=== PATIENT | male | born 1965 | race Caucasian/White ===

== ENCOUNTER 2023-06-27 18:42 | Emergency (ER) | payer SELFPAY ==
[2023-06-27 18:50] VITALS: BP 107/77; PULSE 79; RESP 18; TEMP 36.9; O2SAT 98; BMI 23.7
[2023-06-27 19:09] LABS: UTC Influenza A Antigen Negative (Negative)
[2023-06-27 19:10] LABS: UTC Influenza B Antigen Negative (Negative)
--- NOTE | 2023-06-27 19:11 | EXP.UTC ---
Discharge Plan Referrals Follow up/Referrals: Provider,Referral, MD [Primary Care Provider] - See instructions Activity Restrictions/Add. Instructions Additional Instructions/Restrictions: No sign of a bacterial infection. Likely viral. Viruses can take 7-14 days to run their course. Nasal saline and bulb syringe or nose Marla to remove nasal drainage to help with nasal congestion. Hard to eat, drink, sleep with nasal congestion so important to keep this cleaned out. Monitor temp. Tylenol or Motrin as needed for pain or fever Encourage fluids, water, Gatorade, Powerade, Pedialyte if infant/toddler/child Warm salt water gargles Warm fluids Sore throat lozenges Sleep elevated Humidifier/vaporizer Follow-up immediately for new or worsening symptoms or no noticeable improvement over the next 48-72 hours. Clinical Impressions Clinical Impression: Upper respiratory infection Qualifiers: URI type: unspecified viral URI Qualified Code(s): J06.9 - Acute upper respiratory infection, unspecified Instructions Patient Instructions: DI for Viral Upper Respiratory Infection -- Adult Discharge ED [facility]Karthikeyan [facility] HPI General Stated complaint: nausea,fever, body aches Mode of Arrival: Ambulatory Source of Information: Patient Limitations: No Limitations Time Seen by Provider: 06/27/23 19:11 Description of Symptoms (Recalled from Triage Doc. by RN): body aches, nausea, cough, and fever HEENT Symptoms (Recalled from RN notes): Yes Resp Symptoms (Recalled from RN notes): No Skin Symptoms (Recalled from RN notes): No MS Symptoms (Recalled from RN notes): No Functional Status (Recalled from RN notes): n/a History of Present Illness Provider Complaint: 57 yr old male presents for body aches, nausea, cough, and fever since last pm Related Data Allergies Allergy/AdvReac Type Severity Reaction Status Date / Time codeine Allergy Verified 06/27/23 19:05 Worker's Comp Is this a Worker's Comp case?: No [facility] Disclaimer: The information contained in this section may have been updated after the patient was seen, as this information can be updated by other users. 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) Smoking Status: Current every day smoker alcohol intake: never current occupational status: employed Travel in the last 8 weeks: None ROS Obtained: Yes All systems reviewed & no additional complaints except as documented Constitutional Constitutional: Reports system reviewed and no additional complaints, except as documented, Reports as per HPI, Reports body ache, Reports chills and Reports fever(s) Eyes Eyes: Reports system reviewed and no additional complaints, except as documented ENT Ears, Nose, Mouth, and Throat: Reports system reviewed and no additional complaints, except as documented, Reports as per HPI, Reports otalgia and Reports nasal discharge Cardiovascular Cardiovascular: Reports system reviewed and no additional complaints, except as documented Respiratory Respiratory: Reports system reviewed and no additional complaints, except as documented, Reports as per HPI and Reports cough Gastrointestinal Gastrointestingal: Reports system reviewed and no additional complaints, except as documented Musculoskeletal Musculoskeletal: Reports system reviewed and no additional complaints, except as documented Integumentary/Breasts Skin/Breast: Reports system reviewed and no additional complaints, except as documented Neurologic Neurologic: Reports system reviewed and no additional complaints, except as documented Endocrine Endocrine: Reports system reviewed and no additional complaints, except as documented Allergic/Immunologic Allergic/Immunologic: Reports system reviewed and no additional complaints, except as documented Physical Exam General General appearance: alert and in no apparent distress Head Head exam: atraumatic Eye Eye exam: Present normal appearance and PERRL ENT ENT exam: Present normal exam, normal oropharynx, mucous membranes moist and TM's normal bilaterally Respiratory Respiratory exam: Present normal lung sounds bilaterally Cardiovascular Cardiovascular exam: Present regular rate and normal rhythm Neurological Exam Neurological exam: Present alert and oriented X3 Medical Decision Making Medical Records Medical records reviewed: Yes I reviewed the patient's medical records. Cedrick Inquiry Pt receiving controlled substance: No Cedrick was queried for this patient: No Vital Signs: 06/27/23 18:50 Temperature 98.5 F Temperature Source Oral Pulse Rate [Right Radial] 79 Respiratory Rate 18 Blood Pressure [Right Arm] 107/77 L Blood Pressure Mean [Right Arm] 87 Blood Pressure Source [Right Arm] Automatic Cuff Blood Pressure Position [Right Arm] Sitting 02 Sat by Pulse Oximetry 98 Oxygen Delivery Method Room Air Lab Data Lab results reviewed: Yes I reviewed the patient's lab results. Lab Results 06/27/23 19:09: Influenza Type A Ag Negative, Influenza Type B Ag Negative
[2023-06-27 19:24] VITALS: BP 107/77; PULSE 79; RESP 18; TEMP 36.9; O2SAT 98
[2023-06-27 19:58] LABS: Adenovirus,PCR Not Detected (NotDetected); Coronavirus 19, PCR Not Detected (NotDetected); Coronavirus 229E Not Detected (NotDetected); Coronavirus NL63 Not Detected (NotDetected); Coronavirus OC43 Not Detected (NotDetected); Coronovirus HKU1,PCR Not Detected (NotDetected); Human Metapneumovirus Not Detected (NotDetected); Influenza A, PCR Not Detected (NotDetected); Influenza AH1, 2009 Not Detected (NotDetected); Influenza AH1, PCR Not Detected (NotDetected); Influenza AH3,PCR Not Detected (NotDetected); Influenza B, PCR Not Detected (NotDetected); Parainfluenza 1, PCR Not Detected (NotDetected); Parainfluenza 2, PCR Not Detected (NotDetected); Parainfluenza 3, PCR Not Detected (NotDetected); Parainfluenza 4, PCR Not Detected (NotDetected); Respiratory Syncytial Virus Not Detected (NotDetected); Rhinovirus/Enterovirus Not Detected (NotDetected)
== END 2023-06-27 19:24 | disposition home or self-care (01) ==
PROVIDERS: Emergency Provider Nurse Practitioner Family
DX: J06.9 Acute upper respiratory infection, unspecified; R05.9 Cough, unspecified; R11.0 Nausea; R50.9 Fever, unspecified; M79.18 Myalgia, other site; B34.9 Viral infection, unspecified; F17.210 Nicotine dependence, cigarettes, uncomplicated
CPT/HCPCS: 87581; 87632; 87635; 87798; 87804; 99203; 99212; G0463

== ENCOUNTER 2023-11-29 23:18 | Emergency (ER) | payer SELFPAY ==
[2023-11-29 23:21] VITALS: BP 114/78; PULSE 79; RESP 16; TEMP 36.4; O2SAT 98; BMI 23.0
--- NOTE | 2023-11-29 23:28 | ED_ITS ---
Discharge Plan Disposition Patient Disposition: Home, Self-Care Referrals Follow up/Referrals: Provider,Referral, MD [Primary Care Provider] - See instructions Activity Restrictions/Add. Instructions Additional Instructions/Restrictions: There is a 2 cm lesion on the right kidney. Most likely a cyst, but this will need to be followed up on a nonemergent basis with a dedicated renal CT scan or MRI through a PCP. You also have a small infrarenal abdominal aortic aneurysm. This will also require follow-up imaging for monitoring with PCP. Recommend establishing care with a primary care provider. Return to the ER with any new or worsening symptoms or concern for your health. Clinical Impressions Clinical Impression: Lesion of right [place] kidney, Infrarenal abdominal aortic aneurysm (AAA) without rupture, Abdominal cramping, Hernia, hiatal, Diverticulosis Instructions Patient Instructions: Aortic Aneurysm, DI for Hiatal Hernia, DI for Diverticulosis Discharge ED Provider: Jose Roberto Barber General Adult HPI General Chief complaint: Abdominal Pain Stated complaint: abd pain,cramps,food tastes bad,pasing food fast, Time Seen by Provider: 11/29/23 23:28 History of Present Illness HPI narrative: 58-year-old male without significant past medical history presents for evaluation multiple complaints. He reports over the last few weeks he has had decreased appetite and has been losing some weight. He reports intermittent crampy abdominal pain. He comes in tonight because he was at work and he had pain bad enough to double him over . His pain is now better but still mildly present. He reports the pain is largely periumbilical/epigastric. Denies any right upper quadrant pain. He reports no fevers or night sweats. Denies any recent illness. He reports that he is not significantly nauseous when he eats, he just feels like food taste funny and he does not want. He reports that he did lose his sense of taste with COVID when he was sick about a year ago, but this feels different. He reports that he smokes cigarettes but does not use any other recreational drugs or drink a significant mount of alcohol. He has never had a colonoscopy. Related Data Allergies Allergy/AdvReac Type Severity Reaction Status Date / Time codeine Allergy Verified 06/27/23 19:05 [facility] Disclaimer: The information contained in this section may have been updated after the patient was seen, as this information can be updated by other users. 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) Smoking Status: Current every day smoker alcohol intake: never current occupational status: employed Travel in the last 8 weeks: None ROS Obtained: Yes All systems reviewed & no additional complaints except as documented Physical Exam General General appearance: alert and in no apparent distress Head Head exam: atraumatic and normocephalic Eye Eye exam: Present normal appearance, PERRL and EOMI ENT ENT exam: Present normal oropharynx and normal external ear exam Neck Neck exam: Present normal inspection and full ROM Chest Chest inspection: Present normal inspection and symmetric chest wall rise; Absent tenderness Respiratory Respiratory exam: Present normal lung sounds bilaterally; Absent respiratory distress Cardiovascular Cardiovascular exam: Present regular rate and normal rhythm Abdominal Exam Abdominal exam: Present soft; Absent distention, tenderness or guarding Extremities Exam Extremities exam: Present normal inspection; Absent edema or joint swelling Back Exam Back exam: Present normal inspection; Absent tenderness Neurological Exam Neurological exam: Present alert and oriented X3; Absent motor sensory deficit Psychiatric Psychiatric exam: Present normal affect and normal mood Skin Skin exam: Present warm, dry and normal color Lymphatic Lymphatic Findings: no adenopathy Medical Decision Making Medical Records Medical records reviewed: Yes I reviewed the patient's medical records. Cedrick Inquiry Pt receiving controlled substance: No Cedrick was queried for this patient: No Vital Signs: 11/29/23 23:21 11/29/23 23:31 Temperature 97.5 F L 98.3 F Temperature Source Oral Oral Pulse Rate 76 Pulse Rate [Right] 79 Respiratory Rate 16 18 Blood Pressure 123/89 Blood Pressure [Right Arm] 114/78 Blood Pressure Mean [Right Arm] 90 02 Sat by Pulse Oximetry 98 97 Oxygen Delivery Method Room Air Lab Data Lab results reviewed: Yes I reviewed the patient's lab results. Lab Results 11/29/23 23:51: WBC 5.4, RBC 4.44 L, Hgb 14.1, Hct 42.5, MCV 95.7 H, MCH 31.7 H, MCHC 33.1, RDW 13.4, Plt Count 203, MPV 7.8, Neut % (Auto) 54.4, Lymph % (Auto) 36.1, [place] % (Auto) 6.1, Eos % (Auto) 2.0, Baso % (Auto) 1.4, Neut # (Auto) 3.0, Lymph # (Auto) 2.0, [place] # (Auto) 0.3, Eos # (Auto) 0.1, Baso # (Auto) 0.1, Sodium 138, Potassium 3.9, Chloride 102, Carbon Dioxide 29, Anion Gap 10.9, BUN 21 H, Creatinine 1.20, Estimated Creat Clear 72, Estimated GFR 62, Est GFR ( Amer) 75, Glucose 89, Calcium 9.6, Magnesium 2.2, Total Bilirubin 0.9, AST 31, ALT 23, Alkaline Phosphatase 48, Total Protein 6.9, Albumin 4.3, Globulin 2.6, Albumin/Globulin Ratio 1.7, Lipase 116 11/29/23 23:51 11/29/23 23:51 Orders (Tests/Meds): ED MEDICATIONS Generic Name Dose Route Start Last Admin Trade Name Freq PRN Reason Stop Dose Admin Sodium Chloride 10 ml 11/30/23 00:31 11/30/23 00:33 Sodium Chloride 0.9% 10ml Syr (Rad Only) IV 12/30/23 00:30 10 ml NEEDED PRN Administration Maintain IV Site Discontinued Medications Generic Name Dose Route Start Last Admin Trade Name Freq PRN Reason Stop Dose Admin Iopamidol 75 ml 11/30/23 00:31 11/30/23 00:33 Iopamidol-370 (76%);100ml Bottle IV 11/30/23 00:32 75 ml ONCE ONE Administration ORDERS Category Date Time Status CT abdomen pelvis w con Stat Cat Scan 11/29/23 23:35 Completed CXR --portable [XR chest portable] Stat Exams 11/29/23 23:36 Completed CBC w/Auto Diff [Complete Blood Count Auto Diff] Stat Lab 11/29/23 23:51 Completed CMP [Comprehensive Metabolic Panel] Stat Lab 11/29/23 23:51 Completed Lipase Stat Lab 11/29/23 23:51 Completed Magnesium Stat Lab 11/29/23 23:51 Completed Medical Decision Narrative: 58-year-old male without significant past medical history presents with a few weeks of decreased appetite, weight loss and intermittent crampy abdominal pain. History was obtained interactive discussion with patient family. On arrival, patient is [afebrile, hemodynamically stable, satting appropriately, alert, oriented x4, GCS 15], moving all extremities spontaneously. Full physical exam performed and significant for benign abdominal exam, no intraoral lesions, clear lungs bilaterally Differential includes but is not limited to malignancy, pancreatitis, cholecystitis, IBS, IBD, viral infection. Workup initiated including chest x-ray CT abdomen pelvis IV contrast CBC CMP lipase. On re-evaluation, patient [remains afebrile, HD stable.] Continues to be asymptomatic. Laboratory workup independently interpreted by me and significant for normal white count, normal renal function, no significant electrolyte derangement, normal LFTs. Imaging independently interpreted by me and significant for multiple nonemergent findings including diverticulosis, small hiatal hernia, small right renal lesion, 3 cm infrarenal aortic aneurysm. See radiology read for full review of final results. I had a interactive discussion with patient regarding his presentation and all of the nonemergent findings and follow-up recommendations. He was given a sheet for establishing care with a PCP to follow-up on these nonemergent findings and to further assess his symptoms. Patient was discharged in stable condition. Return precautions given. Procedures Risk/Benefits of Procedure(s) Were Explained: Yes Critical Care Critical Care Time Critical Care Time: No
[2023-11-29 23:31] VITALS: BP 123/89; PULSE 76; RESP 18; TEMP 36.8; O2SAT 97
--- NOTE | 2023-11-29 23:35 | CT_ITS ---
PROCEDURE INFORMATION: Exam: CT Abdomen And Pelvis With Contrast Exam date and time: 11/30/2023 12:15 AM Age: 58 years old Clinical indication: Abdominal pain; Periumbilical; Additional info: Anorexia/weight loss, periumbilical cramps x weeks TECHNIQUE: Imaging protocol: Computed tomography of the abdomen and pelvis with contrast. Total images: 306 Radiation optimization: All CT scans at this facility use at least one of these dose optimization techniques: automated exposure control; mA and/or kV adjustment per patient size (includes targeted exams where dose is matched to clinical indication); or iterative reconstruction. Contrast material: ISOVUE; Contrast volume: 75 ml; Contrast route: IV; COMPARISON: No relevant prior studies available. FINDINGS: Lungs: Densely calcified right lower lobe granuloma. Fine linear left basilar scarring. Heart: Normal heart size. Diaphragm: Tiny hiatal hernia. Liver: Normal. No mass. Gallbladder and bile ducts: Normal. No calcified stones. No ductal dilation. Pancreas: Normal. No ductal dilation. Spleen: Normal. No splenomegaly. Adrenal glands: Normal. No mass. Kidneys and ureters: Multiple subcentimeter bilateral renal cortical hypodensities, too small to characterize but statistically cysts. Indeterminate solid appearing 2 cm midpole right renal cortical lesion concerning for solid mass. No nephrolithiasis or hydronephrosis. Stomach and bowel: Unremarkable stomach and duodenum. No ileus or bowel obstruction. Small bowel appears within normal limits. Unremarkable terminal ileum. Mild colonic diverticulosis without acute diverticulitis. Collapsed rectum. Appendix: Normal appendix. Intraperitoneal space: Unremarkable. No free air. No significant fluid collection. Vasculature: Mildly atherosclerotic abdominal aorta. 3 cm infrarenal abdominal aortic aneurysm without rupture. Pelvic phleboliths. Lymph nodes: Unremarkable. No enlarged lymph nodes. Urinary bladder: Unremarkable as visualized. Reproductive: Mild prostatomegaly. Bones/joints: Mild degenerative changes thoracolumbar spine with moderate degenerative disc disease at L5-S1. Mild degenerative changes bilateral hips and SI joints. Soft tissues: Small fat containing umbilical hernia. IMPRESSION: 1. 2 cm concerning right renal cortical lesion. Leading differential of complex cysts versus solid mass. Recommend follow-up dedicated nonemergent renal CT or MRI. 2. Multiple additional scattered bilateral renal cortical lesions, too small to characterize but statistically cysts. These can be further evaluated time of follow-up. 3. Tiny hiatal hernia. 4. Small fat containing umbilical hernia. 5. Mild colonic diverticulosis without diverticulitis. 6. Mild prostatomegaly. 7. 3 cm infrarenal abdominal aortic aneurysm without rupture. Follow-up imaging in 3 years is recommended. COMMENTS: Consistent with the [employer]'s Incidental Findings Committee white paper (J Am Mahi Radiol 2018): Any incidental renal lesion less than 1 cm or classified as too small to characterize, or any incidental cystic renal lesion characterized as simple-appearing, is likely benign. No follow-up imaging is recommended for these lesions per consensus recommendations based on imaging criteria.
--- NOTE | 2023-11-29 23:36 | XR_ITS ---
PROCEDURE INFORMATION: Exam: XR Chest Exam date and time: 11/30/2023 12:20 AM Age: 58 years old Clinical indication: Other: Weightloss; Additional info: Weight loss, smoker TECHNIQUE: Imaging protocol: Radiologic exam of the chest. Views: 1 view. Total images: 1 COMPARISON: CT ABDOMEN PELVIS W CON 11/30/2023 12:15 AM FINDINGS: Lungs: Densely calcified right lower lobe granuloma. Left basilar scarring. No acute infiltrate, airspace consolidation or vascular congestion. Pleural spaces: Unremarkable. No pleural effusion. No pneumothorax. Heart/Mediastinum: Unremarkable. No cardiomegaly. No mediastinal widening or hilar enlargement. Bones/joints: Multiple remote posterior right rib fractures. Mild degenerative changes thoracic spine. IMPRESSION: No radiographically acute cardiopulmonary process.
[2023-11-30] LABS: Basophils # 0.1 K/mm3 (0-0.2); Basophils % 1.4 % (0.1-2.0); Eosinophils # 0.1 K/mm3 (0.0-0.4); Hematocrit 42.5 % (42.0-52.0); Hemoglobin 14.1 g/dL (14.1-18.0); Lymphocytes % 36.1 % (10-50); Mean Corpuscular HGB Conc 33.1 g/dL (31.8-35.4); Mean Corpuscular Hemoglobin 31.7 pg (27.0-31.2); Mean Corpuscular Volume 95.7 fl (80-94); Mean Platelet Volume 7.8 fl (7.4-10.4); Monocytes # 0.3 K/mm3 (0.1-1.0); Monocytes % 6.1 % (1.7-9.3); Neutrophils % 54.4 % (37.0-80.0); Platelet Count 203 K/mm3 (142-424); Red Blood Count 4.44 M/mm3 (4.60-6.20); Red Cell Distribution Width 13.4 % (11.5-17.5); White Blood Count 5.4 K/mm3 (4.8-10.8)
[2023-11-30 00:08] LABS: Alanine Aminotransferase 23 U/L (12-78); Albumin Level 4.3 g/dl (3.5-5.0); Albumin/Globulin Ratio 1.7 (1.1-1.8); Alkaline Phosphatase 48 U/L (38-126); Anion Gap 10.9 mEq/L (5-15); Aspartate Amino Transferase 31 U/L (17-59); Bilirubin,Total 0.9 mg/dl (0.2-1.3); Blood Urea Nitrogen 21 mg/dl (9-20); Calcium 9.6 mg/dl (8.4-10.2); Carbon Dioxide 29 mmol/L (22.0-30.0); Chloride 102 mmol/L (98-107); Creatinine Clearance Estimated 72 mL/min (50-200); Estimated Glomerular Filt Rate 62 ml/min (>60); GFR (African American) 75 ML/MIN (>60); Globulin 2.6 g/dL (1.3-3.2); Glucose 89 mg/dl (74-100); Lipase 116 U/L (23-300); Magnesium 2.2 mg/dl (1.6-2.3); Potassium 3.9 mmoL/L (3.5-5.1); Sodium 138 mmol/L (136-145); Total Protein,Serum 6.9 g/dl (6.3-8.2)
[2023-11-30] MEDS: SODIUM CHLORIDE 0.9% 10ML SYR (RAD ONLY) 10 ML IV (00:33)
[2023-11-30] MEDS: IOPAMIDOL-370 (76%);100ML BOTTLE 75 ML IV (00:33)
[2023-11-30 02:13] VITALS: BP 112/74; PULSE 58; RESP 16; TEMP 36.9; O2SAT 98
== END 2023-11-30 02:21 | disposition home or self-care (01) ==
PROVIDERS: Emergency Provider Emergency Medicine
DX: R10.84 Generalized abdominal pain (principal); I71.43 Infrarenal abdominal aortic aneurysm, without rupture; K44.9 Diaphragmatic hernia without obstruction or gangrene; K57.90 Diverticulosis of intestine, part unspecified, without perforation or abscess without bleeding; N28.9 Disorder of kidney and ureter, unspecified; F17.210 Nicotine dependence, cigarettes, uncomplicated
CPT/HCPCS: 71045; 74177; 80053; 83690; 83735; 85025; 99284; Q9967

== ENCOUNTER 2023-12-11 18:00 | Outpatient (CLI) | payer SELFPAY ==
[2023-12-11 19:11] LABS: Basophils # 0.1 K/mm3 (0-0.2); Eosinophils # 0.2 K/mm3 (0.0-0.4); Eosinophils % 2.4 % (0.1-12.0); Hematocrit 46.4 % (42.0-52.0); Hemoglobin 15.8 g/dL (14.1-18.0); Lymphocytes # 1.9 K/mm3 (0.7-4.5); Lymphocytes % 28.7 % (10-50); Mean Corpuscular HGB Conc 34.2 g/dL (31.8-35.4); Mean Corpuscular Hemoglobin 32.4 pg (27.0-31.2); Mean Corpuscular Volume 94.8 fl (80-94); Mean Platelet Volume 8.3 fl (7.4-10.4); Monocytes # 0.4 K/mm3 (0.1-1.0); Monocytes % 5.6 % (1.7-9.3); Neutrophils # 4.2 K/mm3 (1.8-7.8); Neutrophils % 62.2 % (37.0-80.0); Platelet Count 216 K/mm3 (142-424); Red Cell Distribution Width 13.7 % (11.5-17.5); White Blood Count 6.7 K/mm3 (4.8-10.8)
[2023-12-11 20:13] LABS: Alanine Aminotransferase 31 U/L (12-78); Albumin Level 4.8 g/dl (3.5-5.0); Albumin/Globulin Ratio 1.6 (1.1-1.8); Alkaline Phosphatase 63 U/L (38-126); Anion Gap 14.4 mEq/L (5-15); Aspartate Amino Transferase 37 U/L (17-59); Bilirubin,Total 0.8 mg/dl (0.2-1.3); Blood Urea Nitrogen 17 mg/dl (9-20); Calcium 9.8 mg/dl (8.4-10.2); Carbon Dioxide 28 mmol/L (22.0-30.0); Chloride 103 mmol/L (98-107); Estimated Glomerular Filt Rate 62 ml/min (>60); GFR (African American) 75 ML/MIN (>60); Glucose 95 mg/dl (74-100); Potassium 4.4 mmoL/L (3.5-5.1); Sodium 141 mmol/L (136-145); Total Protein,Serum 7.8 g/dl (6.3-8.2)
[2023-12-11 20:44] LABS: Prostate Specific Ag Screen 1.6 ng/ml (0.0-4.0); Thyroid Stimulating Hormone 2.62 uIU/mL (0.465-4.68)
[2023-12-11 21:03] LABS: Vitamin B12 258 pg/mL (239-931)
== END 2023-12-11 23:59 | disposition home or self-care (01) ==
LOC: LAB.DROPOF 12-12 13:52
PROVIDERS: PCP Family Medicine; Visit Provider Family Medicine
DX: N40.0 Benign prostatic hyperplasia without lower urinary tract symptoms (principal); R53.83 Other fatigue; I71.43 Infrarenal abdominal aortic aneurysm, without rupture; N28.9 Disorder of kidney and ureter, unspecified; Z68.25 Body mass index [BMI] 25.0-25.9, adult
CPT/HCPCS: 80050; 80053; 82607; 84443; 85025; G0103

== ENCOUNTER 2024-01-04 13:57 | Emergency (ER) | payer SELFPAY ==
[2024-01-04] VITALS (7 sets, daily range): BP systolic 116–142; BP diastolic 74–99; PULSE 60–95; RESP 18; TEMP 36.7–37.2; O2SAT 96–99; BMI 24.1
[2024-01-04 14:43] LABS: Microscopic, Urine URINE MICROSCOPIC (MICROSCOPIC)
[2024-01-04 14:43] LABS: Adenovirus F 40/41, stool Not Detected (NotDetected); Astrovirus Not Detected (NotDetected); Campylobacter Not Detected (NotDetected); Clostridium Difficile A/B, PCR Not Detected (NotDetected); Cryptosporidium Not Detected (NotDetected); Cyclospora Cayetanesis Not Detected (NotDetected); Entamoeba histolytica Not Detected (NotDetected); Enteroaggregative E coli Not Detected (NotDetected); Enterotoxigenic E coli Not Detected (NotDetected); Giardia lamblia Not Detected (NotDetected); Norovirus Not Detected (NotDetected); Plesimonas Shigalloides, PCR Not Detected (NotDetected); Rotavirus A Not Detected (NotDetected); Salmonella, PCR Not Detected (NotDetected); Sapovirus Not Detected (NotDetected); Shiga-like toxin E coli Not Detected (NotDetected); Shigella Enterovasive E coli Not Detected (NotDetected); Vibrio Cholerae Not Detected (NotDetected); Vibrio, PCR Not Detected (NotDetected); Yersinia Entercolitica, PCR Not Detected (NotDetected)
[2024-01-04 14:52] LABS: Appearance,Urine CLEAR (Clear); Blood, Urine 1+ (Negative); Color,Urine AMBER (Yellow); Glucose,Urine (UA) Negative (Negative); Ketones,Urine Negative (Negative); Leukocyte Esterase,Urine Negative (Negative); Nitrate,Urine Negative (Negative); Protein,Urine TRACE (Negative); Specific Gravity, Urine >= 1.030 (1.005-1.030)
[2024-01-04 15:03] LABS: Occult Blood,Stool Negative (Negative)
[2024-01-04 15:09] LABS: Basophils # 0.1 K/mm3 (0-0.2); Basophils % 0.8 % (0.1-2.0); Eosinophils # 0.1 K/mm3 (0.0-0.4); Hematocrit 45.5 % (42.0-52.0); Hemoglobin 15.8 g/dL (14.1-18.0); Lymphocytes % 28.7 % (10-50); Mean Corpuscular HGB Conc 34.6 g/dL (31.8-35.4); Mean Corpuscular Hemoglobin 32.5 pg (27.0-31.2); Mean Corpuscular Volume 93.7 fl (80-94); Mean Platelet Volume 7.3 fl (7.4-10.4); Monocytes # 0.5 K/mm3 (0.1-1.0); Monocytes % 7.3 % (1.7-9.3); Neutrophils # 4.4 K/mm3 (1.8-7.8); Neutrophils % 62.2 % (37.0-80.0); Platelet Count 194 K/mm3 (142-424); Red Blood Count 4.85 M/mm3 (4.60-6.20); Red Cell Distribution Width 13.7 % (11.5-17.5); White Blood Count 7.1 K/mm3 (4.8-10.8)
[2024-01-04 15:12] LABS: Chloride 107 mmol/L (98-107); Potassium 3.8 mmoL/L (3.5-5.1); Sodium 139 mmol/L (136-145)
[2024-01-04 15:14] LABS: Alanine Aminotransferase 27 U/L (12-78); Aspartate Amino Transferase 27 U/L (17-59); Bilirubin,Total 1.7 mg/dl (0.2-1.3); Blood Urea Nitrogen 17 mg/dl (9-20); Creatinine Clearance Estimated 83 mL/min (50-200); Estimated Glomerular Filt Rate 69 ml/min (>60); GFR (African American) 83 ML/MIN (>60)
[2024-01-04 15:15] LABS: Albumin Level 4.7 g/dl (3.5-5.0); Albumin/Globulin Ratio 1.4 (1.1-1.8); Alkaline Phosphatase 60 U/L (38-126); Anion Gap 10.8 mEq/L (5-15); Calcium 9.9 mg/dl (8.4-10.2); Carbon Dioxide 25 mmol/L (22.0-30.0); Globulin 3.3 g/dL (1.3-3.2); Glucose 108 mg/dl (74-100)
--- NOTE | 2024-01-04 15:15 | XR_ITS ---
FINAL REPORT CLINICAL HISTORY: chronic R hand pain COMPARISON: None FINDINGS: RIGHT HAND: 3 views of the right hand were obtained. There is no acute fracture or dislocation. Moderate to severe degenerative change is present in the wrist, with mild degenerative change elsewhere in the hand. There is a chronic fracture of the fifth metacarpal. Soft tissues are unremarkable. IMPRESSION: No acute bony abnormality. Moderate to severe degenerative change of the wrist, with mild degenerative change elsewhere in the hand. Chronic fracture of the fifth metacarpal. Reviewed, Interpreted and Dictated by Steven Rodriguez III, MD Transcribed by Shweta Flores Authenticated and [facility]
--- NOTE | 2024-01-04 15:16 | CT_ITS ---
FINAL REPORT TECHNIQUE: Pre-and postcontrast images of the abdomen and pelvis were performed by computed tomography. Extensive 3-D reconstruction images were performed. A CTA was performed. This study was performed with techniques to keep radiation doses as low as reasonably achievable (ALARA). Individualized dose reduction techniques using automated exposure control or adjustment of mA and/or kV according to the patient's size were employed. CLINICAL HISTORY: LLQ and periumbilical abd pain with AAA COMPARISON: None FINDINGS: CTA ABDOMEN AND PELVIS: Abdomen and pelvis: In the lung bases there are multifocal ground glass opacities, worrisome for a mild pneumonia. The liver, spleen, and pancreas are unremarkable in appearance. There is a 19 mm mass in the right mid kidney that does not appear to represent a simple cyst, but may represent scar, a complex cyst, or neoplasm. There are multiple other less than 1 cm in size renal masses, likely small cysts. A small umbilical hernia containing fat is present. Sigmoid diverticulosis is present without evidence of acute inflammatory change. CTA: There is mild ectasia of the infrarenal abdominal aorta, measuring 26 mm, and was previously 26 mm on the prior exam of November 29. Mural thrombus is present. There is a 17 mm right common iliac aneurysm, which is stable when compared to the prior exam. The left common iliac artery is normal as are the external iliac arteries bilaterally. The celiac axis, superior mesenteric artery, and inferior mesenteric artery are unremarkable in appearance. The renal arteries are normal in appearance bilaterally without evidence of significant stenosis. No evidence of active hemorrhage is seen. IMPRESSION: Mild ectasia of the infrarenal abdominal aorta, 26 mm, is stable when compared to the prior exam of November 29. 17 mm right common iliac artery aneurysm, also stable when compared to the prior exam. Multifocal ground glass opacities in the lung bases, worrisome for mild pneumonia or edema. 19 mm mass in the right mid kidney, does not appear to be a simple cyst, may represent scar, complex cyst, or neoplasm. Recommend follow-up renal MRI or renal mass protocol CT in 6 months. Reviewed, Interpreted and Dictated by Steven Rodriguez III, MD Transcribed by Shweta Flores Authenticated and [facility]
[2024-01-04 15:19] LABS: Bilirubin,Urine 1+ (Negative); RBC,Urine Occasional #/hpf (0-3)
[2024-01-04 15:27] LABS: Lipase 104 U/L (23-300); Magnesium 2.2 mg/dl (1.6-2.3)
[2024-01-04] MEDS: ACETAMINOPHEN 1,000MG/100ML VIAL 1000 MG IV (15:28)
[2024-01-04] MEDS: KETOROLAC 30MG/ML VIAL 15 MG IV (15:28)
[2024-01-04] MEDS: LACTATED RINGERS 1000ML 1,000 ML 999 ML IV (15:28)
--- NOTE | 2024-01-04 15:37 | ED_ITS ---
Discharge Plan Disposition Patient Disposition: Home, Self-Care Chief Complaint: Nausea/Vomiting/Diarrhea Prescriptions Prescriptions: No Action acetaminophen [Tylenol Extra Strength] 500 mg tablet 500 mg PO Q6H PRN Referrals Follow up/Referrals: Provider,Referral, [Primary Care Provider] - See instructions Activity Restrictions/Add. Instructions Additional Instructions/Restrictions: Call your family doctor to establish care for this visit to the emergency department and schedule follow-up within 48 hours to ensure improvement. If you have any worsening of your condition or any other concerning signs or symptoms, return to the emergency department or your primary care doctor for further evaluation. Clinical Impressions Clinical Impression: Enteritis, enteropathogenic E. coli Instructions Patient Instructions: DI for Diarrhea and Traveler's Diarrhea -- Adult, DI for Diarrhea and Traveler's Diarrhea -- Child, DI for Nausea -- Adult, DI for Nausea -- Child Discharge ED Provider: Félix Montero General Adult HPI General Chief complaint: Nausea/Vomiting/Diarrhea Stated complaint: hand pain cant eat, diarrhea Time Seen by Provider: 01/04/24 15:02 Mode of Arrival: Ambulatory Source of Information: Patient Limitations: No Limitations Description of Symptoms (Recalled from ER Triage Doc. by RN): diarrhea,hand pain History of Present Illness HPI narrative: Please note that above description of symptoms, in this electronic medical record under categorization of recalled from ER triage doctor by RN are reflective of an initial nursing assessment, however, is not reflective of my full history and physical exam that was personally taken and clarified. Consequentially, this preceding description of symptoms, which may include the patient's categorized chief complaint in the EMR, do not reflect my personal clinical impression, and the ultimate description of history of present illness and patient stated complaints should be deferred to this section of the note. Unless stated otherwise or congruent with this section of the note, additional signs, symptoms, or incongruence should be interpreted as inaccurate with my clinical impression. Related Data Home Medications Medication Instructions Recorded Confirmed acetaminophen 500 mg tablet 500 mg PO Q6H PRN 12/11/23 12/11/23 (Tylenol Extra Strength) Allergies Allergy/AdvReac Type Severity Reaction Status Date / Time codeine Allergy itching Verified 12/11/23 11:48 [facility] Disclaimer: The information contained in this section may have been updated after the patient was seen, as this information can be updated by other users. Medical History (Updated 01/04/24 @ 17:50 by Félix Montero MD) Fatigue Benign prostatic hyperplasia Tobacco abuse Migraines Diverticulosis Hernia, hiatal Infrarenal abdominal aortic aneurysm (AAA) without rupture Lesion of right [place] kidney Surgical History (Updated 12/11/23 @ 11:49 by CHERELLE Ramirez) No history of previous surgery 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 (Updated 12/11/23 @ 11:50 by CHERELLE Ramirez) Smoking Status: Current every day smoker alcohol intake: never substance use type: former substance user current occupational status: employed Travel in the last 8 weeks: None ROS Obtained: Yes All systems reviewed & no additional complaints except as documented Physical Exam General General appearance: alert, in no apparent distress and other (Chronically ill, sedate mood. No acute illness) Head Head exam: atraumatic and normocephalic Eye Eye exam: Present normal appearance, PERRL and EOMI Neck Neck exam: Present normal inspection, full ROM and trachea midline Chest Chest inspection: Present normal inspection and symmetric chest wall rise Respiratory Respiratory exam: Present normal lung sounds bilaterally; Absent respiratory distress, wheezes, stridor, accessory muscle use or prolonged expiratory phase Cardiovascular Cardiovascular exam: Present regular rate, normal rhythm and other (Pulses equal symmetric in upper and lower extremities) Abdominal Exam Abdominal exam: Present soft and tenderness; Absent distention, guarding, rebound, rigidity or pulsatile mass Abdominal tenderness: Present LLQ and mild Extremities Exam Extremities exam: Absent edema Neurological Exam Neurological exam: Present alert, oriented X3, CN II-XII intact and normal gait; Absent motor sensory deficit Psychiatric Psychiatric exam: Absent normal affect (Flat affect) Skin Skin exam: Present warm and dry; Absent diaphoresis or erythema Medical Decision Making Medical Records Medical records reviewed: Yes I reviewed the patient's medical records. [place] Inquiry Pt receiving controlled substance: No [place] was queried for this patient: No Vital Signs: 01/04/24 13:59 01/04/24 14:05 01/04/24 14:30 Temperature 98.9 F Temperature Source Oral Pulse Rate 90 84 Pulse Rate [Right] 95 H Respiratory Rate 18 Blood Pressure 130/92 H 132/93 H Blood Pressure [Right Arm] 130/92 H Blood Pressure Mean [Right Arm] 104 02 Sat by Pulse Oximetry 97 97 96 Oxygen Delivery Method Room Air 01/04/24 15:30 01/04/24 16:00 01/04/24 16:30 Temperature Temperature Source Pulse Rate 76 72 65 Pulse Rate [Right] Respiratory Rate Blood Pressure 124/93 H 131/76 116/74 Blood Pressure [Right Arm] Blood Pressure Mean [Right Arm] 02 Sat by Pulse Oximetry 98 97 99 Oxygen Delivery Method Lab Data Lab Results 01/04/24 14:19: Stool Occult Blood Negative, Stl Aeromonas (PCR) Not detected, Stl C. cayetanensis PCR Not detected, Stool Rotavirus (PCR) Not detected, Stl Adenov F 40/41 PCR Not detected, Stool Astrovirus (PCR) Not detected, Stool Campylobacter PCR Not detected, Stl C.difficile Tox PCR Not detected, Stool Cryptosporidium PCR Not detected, Stl E.coli Shiga Tox PCR Not detected, Stool E coli O157 PCR Not detected, Stl Enterotoxigenic E PCR Not detected, Stool EPEC (PCR) Detected A, Stool EAEC (PCR) Not detected, Stl E. histolytica PCR Not detected, Stool Giardia Lamblia PCR Not detected, Stool Salmonella PCR Not detected, Stool Sapovirus (PCR) Not detected, Stl P. shigelloides PCR Not detected, Stl Shigella/EIEC PCR Not detected, St Y.enterocolitica PCR Not detected, Stool Vibrio (PCR) Not detected, Stl Vibrio cholerae PCR Not detected, Stl Norovirus GI/GII PCR Not detected 01/04/24 14:36: Urine Color [place], Urine Appearance Clear, Urine pH 6.0, Ur Specific [place] >= 1.030, Urine Protein Trace, Urine Glucose (UA) Negative, Urine Ketones Negative, Urine Blood 1+, Urine Nitrate Negative, Urine Bilirubin 1+ A, Urine Urobilinogen 1.0, Ur Leukocyte Esterase Negative, Urine RBC Occasional, Urine WBC None, Ur Squamous Epith Cells 3-5, Urine Bacteria None 01/04/24 14:50: WBC 7.1, RBC 4.85, Hgb 15.8, Hct 45.5, MCV 93.7, MCH 32.5 H, MCHC 34.6, RDW 13.7, Plt Count 194, MPV 7.3 L, Neut % (Auto) 62.2, Lymph % (Auto) 28.7, [place] % (Auto) 7.3, Eos % (Auto) 1.0, Baso % (Auto) 0.8, Neut # (Auto) 4.4, Lymph # (Auto) 2.0, [place] # (Auto) 0.5, Eos # (Auto) 0.1, Baso # (Auto) 0.1, Sodium 139, Potassium 3.8, Chloride 107, Carbon Dioxide 25, Anion Gap 10.8, BUN 17, Creatinine 1.10, Estimated Creat Clear 83, Estimated GFR 69, Est GFR ( Amer) 83, Glucose 108 H, Calcium 9.9, Magnesium 2.2, Total Bilirubin 1.7 H, AST 27, ALT 27, Alkaline Phosphatase 60, C-Reactive Protein 26.0 H, Total Protein 8.0, Albumin 4.7, Globulin 3.3 H, Albumin/Globulin Ratio 1.4, Lipase 104 01/04/24 14:50 01/04/24 14:50 Orders (Tests/Meds): ED MEDICATIONS Discontinued Medications Generic Name Dose Route Start Last Admin Trade Name Freq PRN Reason Stop Dose Admin Acetaminophen 1,000 mg 01/04/24 15:17 01/04/24 15:28 Acetaminophen 1,000mg/100ml Vial IV 01/04/24 15:18 1,000 mg ONCE ONE Administration Lactated Ringer's 1,000 mls @ 999 mls/hr 01/04/24 15:17 01/04/24 15:28 Lactated Ringer's 1000 Ml Bag IV 01/04/24 16:17 999 mls/hr .Q1H1M ONE Administration Iopamidol 100 ml 01/04/24 15:46 01/04/24 16:43 Iopamidol-370 (76%);100ml Bottle IV 01/04/24 15:47 100 ml ONCE ONE Administration Ketorolac Tromethamine 15 mg 01/04/24 15:17 01/04/24 15:28 Ketorolac 30mg/Ml Vial IV 01/04/24 15:18 15 mg ONCE ONE Administration Sodium Chloride 10 ml 01/04/24 15:46 01/04/24 16:43 Sodium Chloride 0.9% 10ml Syr (Rad Only) IV 01/04/24 15:47 10 ml ONCE ONE Administration Sodium Chloride 50 ml 01/04/24 15:46 01/04/24 16:43 0.9 % Sodium Chloride 50 Ml Vial IV 01/04/24 15:47 50 ml ONCE ONE Administration ORDERS Category Date Time Status CT angio abdomen pelvis Stat Cat Scan 01/04/24 15:16 Completed Hand XR right minimum 3 views [XR hand RT min 3V] Stat Exams 01/04/24 15:15 Completed CBC w/Auto Diff [Complete Blood Count Auto Diff] Stat Lab 01/04/24 14:50 Completed CMP [Comprehensive Metabolic Panel] Stat Lab 01/04/24 14:50 Completed CRP [C-Reactive Protein] Stat Lab 01/04/24 14:50 Completed Diarrhea 23 Panel, PCR Stat Lab 01/04/24 14:19 Completed ESR [Erythrocyte Sedimentation Rate] Stat Lab 01/04/24 14:50 Received Lipase Stat Lab 01/04/24 14:50 Completed Magnesium Stat Lab 01/04/24 14:50 Completed Occult Blood,Stool Stat Lab 01/04/24 14:19 Completed Urinalysis and Microscopic Stat Lab 01/04/24 14:36 Completed Medical Decision Narrative: 58-year-old male history of infrarenal AAA, right kidney lesion, diverticulosis, polysubstance abuse, tobacco use, COPD not on oxygen, chronic right hand pain secondary to previous injury presenting with a plethora of complaints. Patient states that he has migraine headaches intermittently responsive to Tylenol. No vision changes or neurologic deficits. He also states that he intermittently has muscle cramps in his chest, abdomen, legs and feels like he is dehydrated. Patient also states that he has been having intermittent left lower quadrant abdominal pains that do not radiate. Also intermittently having periumbilical pains that feel different, do not radiate, do not feel that they are associated with left lower quadrant pains. They are moderate in intensity, not associated with vomiting, fevers, chills. Patient states that he has had 20 pound weight loss over the past 3 months or so, which she attributes to diarrhea that he has been having daily. No blood in his stool. No fevers or chills, no night sweats. Has not followed up with his family provider regarding any of these complaints. Is not sure who his family provider is. History was obtained via conversation with patient. On arrival, patient hemodynamically stable, alert, oriented x4, appropriate, GCS 15, moving all extremities spontaneously, pupils equal and reactive to light. Full physical exam performed and significant for chronically ill-appearing, but no acute distress. Moist mucous membranes. Patient is neurologically intact including cranial nerve, cerebellar, motor and sensory exam. Right hand and wrist are painful on my exam, old deformities, but no acute injury. Patient also states it is not in any acute pain and is all chronic pain. Pulses are equal and symmetric intact in upper and lower extremities. Cardiopulmonary exam within normal limits. Patient's abdomen is soft, nondistended, but tender in left lower quadrant and some periumbilical. He is not showing signs of peritonitis. No flank tenderness. No overlying skin changes. No lower extremity edema. Differential includes host of chronic comorbidities, loss of follow-up, medication noncompliance, dehydration, infectious diarrhea, inflammatory functional diarrhea, IBS, IBD, PUD, gastritis, ruptured AAA, mesenteric ischemia, UTI, nephrolithiasis, colitis, malignancy, among others. Patient was given fluids, Toradol, acetaminophen for symptomatic management and correction of underlying abnormalities. Workup independently interpreted and significant for nonactionable CBC or chemistry. Total protein normal, albumin also normal. Lipase negative. Patient's urinalysis without concern for UTI. Stool sample with enteropathogenic E. coli. CTA of the abdomen and pelvis with stable infrarenal aortic aneurysm, also stable right common iliac aneurysm. See radiology read for full review of final results. On reevaluation, patient still baseline. I feel patient has a host of chronic medical comorbidities that need to be followed up with family medicine. This was relayed to patient. He voices understanding. Because patient at baseline without signs or symptoms of clinical decompensation, deemed appropriate for discharge. Results were relayed to patient who voiced understanding and were agreeable to outpatient management and follow up. I discussed my clinical impression with patient and answered all questions. At this time, the evidence for any other entities in the differential is insufficient to warrant any further testing or ED observation. This was explained as well. Advisory was given that persistent or worsening symptoms require further evaluation. I confirmed the understanding of this discussion. Nursing Admin disclaimer Much of this encounter note is an electronic welder pipe making spoken language to printed text. Electronic welder pipe making of the spoken language may permit errors. Although I have reviewed the note, some errors may still exist. Critical Care Critical Care Time Critical Care Time: No
[2024-01-04] MEDS: IOPAMIDOL-370 (76%);100ML BOTTLE 100 ML IV (16:43)
[2024-01-04] MEDS: SODIUM CHLORIDE 0.9% 10ML SYR (RAD ONLY) 10 ML IV (16:43)
[2024-01-04] MEDS: 0.9 % SODIUM CHLORIDE 50 ML VIAL IV (16:43)
[2024-01-04 17:18] LABS: Enteropathogenic E coli Detected (NotDetected)
--- NOTE | 2024-01-04 17:20 | PC.NURSE ---
Reported Stool EPEC to Dr. Montero.
[2024-01-04 17:51] LABS: Erythrocyte Sedimentation Rate 14 mm/hr (0-20)
== END 2024-01-04 18:06 | disposition home or self-care (01) ==
PROVIDERS: Emergency Medicine; Emergency Provider Emergency Medicine
DX: A04.0 Enteropathogenic Escherichia coli infection (principal); R10.32 Left lower quadrant pain; F17.210 Nicotine dependence, cigarettes, uncomplicated; M79.641 Pain in right hand; G89.29 Other chronic pain; I71.43 Infrarenal abdominal aortic aneurysm, without rupture; N28.9 Disorder of kidney and ureter, unspecified
CPT/HCPCS: 73130; 74174; 80053; 81001; 82272; 83690; 83735; 85025; 85651; 86140; 87507; 96361; 96374; 96375; 99285; G0328; J0131; J1885; J7120; Q9967

== ENCOUNTER 2024-02-12 15:38 | Outpatient (CLI) | payer MEDICAID, SELFPAY ==
[2024-02-12 19:38] LABS: Uric Acid 5.2 mg/dl (3.5-8.5)
[2024-02-12 20:43] LABS: Erythrocyte Sedimentation Rate 25 mm/hr (0-20)
[2024-02-14 13:19] LABS: RA Latex Turbid. 35.5 IU/mL (<14.0)
[2024-02-15 12:12] LABS: Antinuclear Antibodies, IFA Negative (.)
[2024-02-20 08:11] LABS: Antinuclear Antibodies (ANA) NEGATIVE
== END 2024-02-12 23:59 | disposition home or self-care (01) ==
LOC: LAB.DROPOF 02-13 15:42
PROVIDERS: PCP Family Medicine; Visit Provider Family Medicine
DX: M62.838 Other muscle spasm (principal); M25.50 Pain in unspecified joint; N28.9 Disorder of kidney and ureter, unspecified; A04.0 Enteropathogenic Escherichia coli infection
CPT/HCPCS: 84550; 85651; 86038; 86225; 86235; 86431

== ENCOUNTER 2024-05-21 09:57 | Emergency (ER) | payer MEDICAID, SELFPAY ==
[2024-05-21 09:59] VITALS: BP 121/98; PULSE 61; RESP 16; TEMP 36.4; O2SAT 98; BMI 23.7
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
--- NOTE | 2024-05-21 10:33 | XR_ITS ---
FINAL REPORT CLINICAL HISTORY: right wrist pain COMPARISON: 01/04/2024 FINDINGS: AP, oblique, and lateral views of the right wrist were obtained. There is no acute fracture or dislocation. There is advanced degenerative joint disease of the radiocarpal joint. Increased density of the scaphoid suggest AVN. The soft tissues are normal. 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 Reviewed, Interpreted and Dictated by Lizette Phillips MD Transcribed by Lily Bush Authenticated and [facility]
[2024-05-21] MEDS: predniSONE 20MG TAB 40 MG PO (10:49)
[2024-05-21 11:30] VITALS: BP 122/96; PULSE 62; RESP 18; TEMP 36.7; O2SAT 96
== END 2024-05-21 11:31 | disposition home or self-care (01) ==
PROVIDERS: Emergency Provider Emergency Medicine; PCP Nurse Practitioner
DX: M25.531 Pain in right wrist (principal); M79.641 Pain in right hand; M79.642 Pain in left hand; Z72.0 Tobacco use
CPT/HCPCS: 73110; 99283

== ENCOUNTER 2024-06-02 07:08 | Outpatient (CLI) | payer MEDICAID, SELFPAY ==
--- NOTE | 2024-06-02 07:09 | MR_ITS ---
FINAL REPORT CLINICAL HISTORY: lesion of right kidney COMPARISON: CTA 01/04/2024 FINDINGS: Multiplanar MR imaging of the abdomen was performed without and with contrast. Images of the liver reveal no evidence of mass. There is no evidence of biliary ductal dilatation. The gallbladder is partially collapsed with wall thickening. There are multiple small bilateral renal cysts measuring up to 13 mm. In addition, there is a 19 mm mass in the mid right kidney with increased signal on precontrast T1-weighted images. There is no significant contrast-enhancement. This has the appearance consistent with a complicated cyst. No abnormal fluid collection is seen. No abnormal contrast enhancement is seen on the postcontrast images. IMPRESSION: Right renal mass with appearance consistent with complicated cyst. Partially collapsed gallbladder with wall thickening. Reviewed, Interpreted and Dictated by Steven Rodriguez III, MD Transcribed by Lily Bush Authenticated and [facility]
[2024-06-02] MEDS: SODIUM CHLORIDE 0.9% 50ML BAG 25 ML IV (08:24)
[2024-06-02] MEDS: SODIUM CHLORIDE 0.9% 10ML SYR (RAD ONLY) 10 ML IV (08:24)
[2024-06-02] MEDS: GADOTERIDOL INJ 20ML SYRINGE 16 ML IV (08:25)
== END 2024-06-02 23:59 | disposition home or self-care (01) ==
LOC: RAD 07:09
PROVIDERS: PCP Nurse Practitioner; Visit Provider Nurse Practitioner
DX: N28.89 Other specified disorders of kidney and ureter (principal)
CPT/HCPCS: 74183; A9576

== ENCOUNTER 2024-10-03 07:23 | Emergency (ER) | payer MEDICAID, SELFPAY ==
[2024-10-03 07:32] VITALS: BP 143/87; PULSE 96; O2SAT 97
--- NOTE | 2024-10-03 07:32 | HMH.EDGENADL ---
Discharge Plan Disposition Patient Disposition: Home, Self-Care Chief Complaint: PAIN Prescriptions Prescriptions: No Action gabapentin 400 mg capsule PO Patient Comments: TAKE 1 CAPSULE BY MOUTH THREE TIMES DAILY sildenafil (pulm.hypertension) 20 mg tablet PO Patient Comments: TAKE 3 TABLETS BY MOUTH DAILY FOR 15 DAYS quetiapine 50 mg tablet PO Patient Comments: TAKE 1 TABLET BY MOUTH DAILY AT BEDTIME tamsulosin 0.4 mg capsule PO Patient Comments: TAKE 1 CAPSULE BY MOUTH DAILY ciprofloxacin HCl 500 mg tablet PO Patient Comments: TAKE 1 TABLET BY MOUTH EVERY 12 HOURS FOR 3 DAYS venlafaxine 75 mg capsule,extended release 24hr PO bupropion HCl 150 mg tablet sustained-release 12 hr PO prazosin 1 mg capsule PO acetaminophen [Tylenol Extra Strength] 500 mg tablet 500 mg PO Q6H PRN duloxetine 30 mg capsule,delayed release(DR/EC) 30 mg PO DAILY Qty: 30 2RF quetiapine [Seroquel] 25 mg tablet 25 mg PO DAILY Qty: 30 2RF prednisone 20 mg tablet 40 mg PO DAILY 5 Days Qty: 10 0RF Referrals Follow up/Referrals: Leatha Garcia APRN [Primary Care Provider] - See instructions Activity Restrictions/Add. Instructions Additional Instructions/Restrictions: At this time it was felt you are safe to be discharged home. If new or worsening symptoms please do not hesitate to return the emergency department. Please follow-up with your family doctor for continued evaluation if symptoms persist. Clinical Impressions Clinical Impression: Muscle spasm, Dehydration, mild Print Language Print Language: Ukrainian Discharge ED Provider: Vidal Queen General Adult HPI General Chief complaint: PAIN Stated complaint: abd and back pain Time Seen by Provider: 10/03/24 07:24 History of Present Illness HPI narrative: Patient is a 58-year-old male with past medical history of lesion of the right kidney undergoing surveillance, BPH, abdominal cramping who presents emergency department for the emergency department of suspected muscle spasms. Patient states that he has had been going on at least weekly over the last few years. They are varying in location but always on his thorax whether in his epigastric region, over his shoulders, over his lower back or across his right superior chest wall. This time it is epigastric in nature and across the top of his back, no lower back. He states that these are refractory to gabapentin. No new trauma. Previously he has been told that his electrolytes were out of whack and he was given fluids and felt better. No other acute complaints at this time. Please note that above description of symptoms, in this electronic medical record under categorization of recalled from ER triage doctor by RN are reflective of an initial nursing assessment, however, is not reflective of my full history and physical exam that was personally taken and clarified. Consequentially, this preceding description of symptoms, which may include the patient's categorized chief complaint in the EMR, do not reflect my personal clinical impression, and the ultimate description of history of present illness and patient stated complaints should be deferred to this section of the note. Unless stated otherwise or congruent with this section of the note, additional signs, symptoms, or incongruence should be interpreted as inaccurate with my clinical impression. Related Data Home Medications ?Medication ?Instructions ?Recorded ?Confirmed acetaminophen 500 mg tablet 500 mg PO Q6H PRN 12/11/23 06/03/24 (Tylenol Extra Strength) bupropion HCl 150 mg tablet,12 hr mg PO 06/03/24 06/03/24 sustained-release ciprofloxacin HCl 500 mg tablet mg PO 06/03/24 06/03/24 gabapentin 400 mg capsule mg PO 06/03/24 06/03/24 prazosin 1 mg capsule mg PO 06/03/24 06/03/24 quetiapine 50 mg tablet mg PO 06/03/24 06/03/24 sildenafil (pulm.hypertension) 20 mg PO 06/03/24 06/03/24 mg tablet tamsulosin 0.4 mg capsule mg PO 06/03/24 06/03/24 venlafaxine 75 mg capsule,extended mg PO 06/03/24 06/03/24 release 24 hr Previous Rx's ?Medication ?Instructions ?Recorded duloxetine 30 mg capsule,delayed 30 mg PO DAILY #30 caps 02/12/24 release quetiapine 25 mg tablet (Seroquel) 25 mg PO DAILY #30 tabs 02/12/24 prednisone 20 mg tablet 40 mg (2 x 20 mg) PO DAILY 5 days 05/21/24 #10 tabs Allergies Allergy/AdvReac Type Severity Reaction Status Date / Time codeine Allergy itching Verified 10/03/24 07:51 [facility] Disclaimer: The information contained in this section may have been updated after the patient was seen, as this information can be updated by other users. Medical History Joint pain Fatigue Benign prostatic hyperplasia Tobacco abuse Migraines Diverticulosis Hernia, hiatal Infrarenal abdominal aortic aneurysm (AAA) without rupture Lesion of right [place] kidney He needs an MRI of the right kidney in one month Surgical History No history of previous surgery 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 Smoking Status: Current every day smoker alcohol intake: never substance use type: former substance user current occupational status: employed Travel in the last 8 weeks: None Have you lived/traveled outside [place] in past 30 days?: No Contact w/someone who lives/traveled outside US past 30 days?: No Exposure to someone with infectious disease in past 14 days?: No Do you have a fever (greater than 100.4 F or 38 C)?: No Have you tested positive for COVID-19: No Exposed to someone with COVID-19 in past 14 days?: No Do you have a sore throat?: No Do you have a cough?: No Do you have any weakness?: No Do you have any diarrhea?: No Are you experiencing any unusual bleeding?: No Do you have any muscle aches/pain?: No Do you have any abdominal pain?: Yes Are you experiencing loss of taste or smell?: No ROS Obtained: Yes Systems reviewed as appropriate & no additional complaints except as documented Physical Exam General General appearance: alert and in no apparent distress Head Head exam: atraumatic and normocephalic Eye Eye exam: Present PERRL and EOMI ENT ENT exam: Present mucous membranes moist Neck Neck exam: Present normal inspection Chest Chest inspection: Present normal inspection and symmetric chest wall rise Respiratory Respiratory exam: Present normal lung sounds bilaterally; Absent respiratory distress Cardiovascular Cardiovascular exam: Present regular rate and normal rhythm Abdominal Exam Abdominal exam: Present soft; Absent tenderness, guarding, rebound or rigidity Extremities Exam Extremities exam: Present normal inspection Back Exam Back exam: Present normal inspection; Absent tenderness, CVA tenderness (R) or CVA tenderness (L) Neurological Exam Neurological exam: Present alert; Absent motor sensory deficit Psychiatric Psychiatric exam: Present normal affect Skin Skin exam: Present warm and dry Medical Decision Making Medical Records Screening: Per USPSTF and CDC recommendations, given the prevalence of disease in our region, it is our hospital?s policy to screen for HIV and viral Hepatitis for all patients aged 18 and over and those with ongoing risk factors. Cedrick Inquiry Pt receiving controlled substance: No Vital Signs: 10/03/24 07:32 10/03/24 07:40 10/03/24 08:00 Temperature 97.8 F Temperature Source Oral Pulse Rate 96 H 85 Pulse Rate [Left Radial] 98 H Respiratory Rate 18 Blood Pressure 143/87 H 121/89 Blood Pressure [Left Arm] 143/87 H Blood Pressure Mean [Left Arm] 105 Blood Pressure Source [Left Arm] Automatic Cuff Blood Pressure Position [Left Arm] Sitting 02 Sat by Pulse Oximetry 97 98 99 Oxygen Delivery Method Room Air Room Air Room Air Lab Data Lab Results 10/03/24 07:26: Urine Color Yellow, Urine Appearance Clear, Urine pH 5.5, Ur Specific Holly >= 1.030, Urine Protein Negative, Urine Glucose (UA) Negative, Urine Ketones Negative, Urine Blood Negative, Urine Nitrate Negative, Urine Bilirubin 1+ A, Urine Urobilinogen 0.2, Ur Leukocyte Esterase Negative, Urine RBC None, Urine WBC None, Ur Squamous Epith Cells None, Calcium Oxalate Crystal 2+, Urine Bacteria None 10/03/24 07:35: WBC 8.6, RBC 5.30, Hgb 16.3, Hct 46.2, MCV 87.2, MCH 30.8, MCHC 35.3, RDW 13.0, Plt Count 239, MPV 9.5, Neut % (Auto) 46.4, Lymph % (Auto) 38.9, [place] % (Auto) 10.4 H, Eos % (Auto) 3.3, Baso % (Auto) 0.8, Neut # (Auto) 4.0, Lymph # (Auto) 3.3, [place] # (Auto) 0.9, Eos # (Auto) 0.3, Baso # (Auto) 0.1, Sodium 141, Potassium 4.0, Chloride 107, Carbon Dioxide 25, Anion Gap 13.0, BUN 18, Creatinine 1.30 H, Estimated Creat Clear 80, Estimated GFR 57 L, Est GFR ( Amer) 68, Glucose 89, Calcium 9.4, Magnesium 2.3, Total Bilirubin 0.6, AST 39, ALT 32, Alkaline Phosphatase 68, Total Protein 8.0, Albumin 4.5, Globulin 3.5 H, Albumin/Globulin Ratio 1.3, Lipase 164 10/03/24 07:35 10/03/24 07:35 Orders (Tests/Meds): ED MEDICATIONS Discontinued Medications Generic Name Dose Route Start Last Admin Trade Name Ela PRN Reason Stop Dose Admin Acetaminophen 1,000 mg 10/03/24 07:30 10/03/24 07:52 Acetaminophen 1,000mg/100ml Vial IV 10/03/24 07:31 1,000 mg ONCE ONE Administration Lactated Ringer's 1,000 mls @ 999 mls/hr 10/03/24 07:30 10/03/24 07:52 Lactated Ringer's 1000 Ml Bag IV 10/03/24 08:30 999 mls/hr .Q1H1M ONE Administration Ketorolac Tromethamine 30 mg 10/03/24 07:30 10/03/24 07:52 Ketorolac 30mg/Ml Vial IV 10/03/24 07:31 30 mg ONCE ONE Administration Methocarbamol 1,000 mg 10/03/24 07:31 10/03/24 07:52 Methocarbamol 500mg Tablet PO 10/03/24 07:32 1,000 mg ONCE ONE Administration ORDERS Category Date Time Status CBC w/Auto Diff [Complete Blood Count Auto Diff] Stat Lab 10/03/24 07:35 Completed CMP [Comprehensive Metabolic Panel] Stat Lab 10/03/24 07:35 Completed HIV Combo Stat Lab 10/03/24 07:35 Received Hepatitis C Ab Qual. W/ RFX Stat Lab 10/03/24 07:35 Received Lipase Stat Lab 10/03/24 07:35 Completed MG [Magnesium] Stat Lab 10/03/24 07:35 Completed UA [Urinalysis and Microscopic] Stat Lab 10/03/24 07:26 Completed Medical Decision Narrative: In summary patient is a 58-year-old male past medical history described above who presents emergency department for evaluation of cramping. Patient is hemodynamically stable nontoxic-appearing upon arrival, afebrile. Patient has a chronic history of these over the last few years. My concern for critical pathology is low. Workup screening for metabolic derangement will be conducted with hematologic labs. He does have a documented infrarenal abdominal aortic aneurysm however he does not have any tenderness to palpation, is well-appearing, pain is in the similar location that has been for years, no tachycardia therefore my suspicion for this is extremely low at this time. Workup for this in totality will be conducted with hematologic labs. Imaging was considered but for the above reasons will be deferred. Initial interventions include crystalloid bolus, Tylenol, Toradol, methocarbamol. Initial workup reviewed by me, hematologic labs are nonactionable, patient has slightly elevated creatinine that does not meet RAFFI criteria per rifle criteria. Upon repeat evaluation patient continued to be well-appearing. Given this patient's prep for discharge at this time will be discharged with a course of Robaxin. Critical Care Critical Care Time Critical Care Time: No
[2024-10-03 07:40] VITALS: BP 143/87; PULSE 98; RESP 18; TEMP 36.6; O2SAT 98; BMI 27.8
[2024-10-03 07:43] LABS: Microscopic, Urine URINE MICROSCOPIC (MICROSCOPIC)
[2024-10-03] MEDS: ACETAMINOPHEN 1,000MG/100ML VIAL 1000 MG IV (07:52)
[2024-10-03] MEDS: KETOROLAC 30MG/ML VIAL 30 MG IV (07:52)
[2024-10-03] MEDS: LACTATED RINGERS 1000ML 1,000 ML 999 ML IV (07:52)
[2024-10-03] MEDS: METHOCARBAMOL 500MG TABLET 1000 MG PO (07:52)
[2024-10-03 07:53] LABS: Basophils # 0.1 K/mm3 (0-0.2); Basophils % 0.8 % (0.1-2.0); Eosinophils # 0.3 K/mm3 (0.0-0.4); Eosinophils % 3.3 % (0.1-12.0); Hematocrit 46.2 % (42.0-52.0); Hemoglobin 16.3 g/dL (14.1-18.0); Lymphocytes # 3.3 K/mm3 (0.7-4.5); Lymphocytes % 38.9 % (10-50); Mean Corpuscular HGB Conc 35.3 g/dL (31.8-35.4); Mean Corpuscular Hemoglobin 30.8 pg (27.0-31.2); Mean Corpuscular Volume 87.2 fl (80-94); Mean Platelet Volume 9.5 fl (7.4-10.4); Monocytes # 0.9 K/mm3 (0.1-1.0); Monocytes % 10.4 % (1.7-9.3); Neutrophils % 46.4 % (37.0-80.0); Nucleated Red Blood Cells # 0 10^3/uL; Nucleated Red Blood Cells % 0 %; Platelet Count 239 K/mm3 (142-424); Red Cell Distribution Width-SD 40.9 fL; White Blood Count 8.6 K/mm3 (4.8-10.8)
[2024-10-03 07:54] LABS: Appearance,Urine CLEAR (Clear); Blood, Urine Negative (Negative); Color,Urine YELLOW (Yellow); Glucose,Urine (UA) Negative (Negative); Ketones,Urine Negative (Negative); Leukocyte Esterase,Urine Negative (Negative); Nitrate,Urine Negative (Negative); PH,Urine 5.5 (5.0-8.5); Protein,Urine Negative (Negative); Specific Gravity, Urine >= 1.030 (1.005-1.030); Urobilinogen,Urine 0.2 EU/dl (0.2)
[2024-10-03 08:00] VITALS: BP 121/89; PULSE 85; O2SAT 99
[2024-10-03 08:04] LABS: Albumin Level 4.5 g/dl (3.5-5.0); Chloride 107 mmol/L (98-107); Sodium 141 mmol/L (136-145)
[2024-10-03 08:07] LABS: Alanine Aminotransferase 32 U/L (12-78); Albumin/Globulin Ratio 1.3 (1.1-1.8); Alkaline Phosphatase 68 U/L (38-126); Aspartate Amino Transferase 39 U/L (17-59); Bilirubin,Total 0.6 mg/dl (0.2-1.3); Blood Urea Nitrogen 18 mg/dl (9-20); Calcium 9.4 mg/dl (8.4-10.2); Carbon Dioxide 25 mmol/L (22.0-30.0); Creatinine Clearance Estimated 80 mL/min (50-200); Estimated Glomerular Filt Rate 57 ml/min (>60); GFR (African American) 68 ML/MIN (>60); Globulin 3.5 g/dL (1.3-3.2); Glucose 89 mg/dl (74-100); Lipase 164 U/L (23-300); Magnesium 2.3 mg/dl (1.6-2.3)
[2024-10-03 08:35] LABS: Bilirubin,Urine 1+ (Negative)
[2024-10-03 08:36] LABS: Calcium Oxalate Crystals,Urine 2+ /lpf
--- NOTE | 2024-10-03 08:45 | PC.NURSE ---
I rounded on the pt and put his IVF on a pressure bag per MD. no new complaints. no needs voiced. call hermosillo in reach.
[2024-10-03 08:48] LABS: HIV Combo NEGATIVE (Negative)
[2024-10-03 08:56] LABS: Hepatitis C Ab Qual. W/ RFX NEGATIVE (Negative)
[2024-10-03 09:25] VITALS: BP 122/106; PULSE 73; RESP 15; TEMP 36.9; O2SAT 99
== END 2024-10-03 09:25 | disposition home or self-care (01) ==
PROVIDERS: Emergency Provider Emergency Medicine; PCP Nurse Practitioner
DX: R10.816 Epigastric abdominal tenderness (principal); E86.0 Dehydration; M62.830 Muscle spasm of back; M54.6 Pain in thoracic spine; Z11.59 Encounter for screening for other viral diseases; Z11.4 Encounter for screening for human immunodeficiency virus [HIV]
CPT/HCPCS: 80053; 81001; 83690; 83735; 85025; 86803; 87389; 96361; 96374; 96375; 99284; J0131; J1885; J7120

== ENCOUNTER 2024-11-06 13:00 | Emergency (ER) | payer MEDICAID, SELFPAY ==
[2024-11-06] VITALS (13 sets, daily range): BP systolic 103–125; BP diastolic 77–100; PULSE 69–103; RESP 16–18; TEMP 36.8; O2SAT 92–99; BMI 28.5
--- NOTE | 2024-11-06 13:15 | [facility]H.EDGENADL ---
Discharge Plan Disposition Patient Disposition: Home, Self-Care Condition: Good Prescriptions Prescriptions: New cyclobenzaprine 10 mg tablet 10 mg PO HS Qty: 20 0RF methylprednisolone [Medrol (Bryon)] 4 mg tablets,dose pack 4 mg PO DAILY Qty: 21 0RF No Action gabapentin 400 mg capsule PO Patient Comments: TAKE 1 CAPSULE BY MOUTH THREE TIMES DAILY sildenafil (pulm.hypertension) 20 mg tablet PO Patient Comments: TAKE 3 TABLETS BY MOUTH DAILY FOR 15 DAYS quetiapine 50 mg tablet PO Patient Comments: TAKE 1 TABLET BY MOUTH DAILY AT BEDTIME tamsulosin 0.4 mg capsule PO Patient Comments: TAKE 1 CAPSULE BY MOUTH DAILY ciprofloxacin HCl 500 mg tablet PO Patient Comments: TAKE 1 TABLET BY MOUTH EVERY 12 HOURS FOR 3 DAYS venlafaxine 75 mg capsule,extended release 24hr PO bupropion HCl 150 mg tablet sustained-release 12 hr PO prazosin 1 mg capsule PO acetaminophen [Tylenol Extra Strength] 500 mg tablet 500 mg PO Q6H PRN duloxetine 30 mg capsule,delayed release(DR/EC) 30 mg PO DAILY Qty: 30 2RF quetiapine [Seroquel] 25 mg tablet 25 mg PO DAILY Qty: 30 2RF prednisone 20 mg tablet 40 mg PO DAILY 5 Days Qty: 10 0RF methocarbamol 500 mg tablet 1,000 mg PO Q8H PRN (Reason: muscle pain and spasm) Qty: 30 0RF Referrals Follow up/Referrals: Provider,Referral, MD [Primary Care Provider] - See instructions Activity Restrictions/Add. Instructions Additional Instructions/Restrictions: Please take all medication as prescribed, please return to the emerged part with any worsening signs or symptoms, follow-up with your PCP, recommend ibuprofen Tylenol and other medications as needed for symptomatic relief, please follow-up with family physician, could benefit from MRI of your back for muscle spasm/pain. Clinical Impressions Clinical Impression: Muscle spasm, Joint pain Instructions Patient Instructions: DI for Thoracic Back Pain Print Language Print Language: Citizen Of [place] Discharge ED Provider: Theresa Colón General Adult HPI <LIA Casas - Last Filed: 11/06/24 17:53> General Chief complaint: Abdominal Pain Stated complaint: Middle quad pain Time Seen by Provider: 11/06/24 13:11 Mode of Arrival: Ambulatory Source of Information: Patient and Spouse Description of Symptoms (Recalled from ER Triage Doc. by RN): Pt presents with c/o bilateral upper abdominal pain that started. Pt denies any n/v/d. pt states came on gradual, and has progressively become worse with intermittent sharp pain History of Present Illness HPI narrative: 59-year-old male presents to the emergency department with midepigastric/substernal chest pain that radiates into his back, describes it as spasms , and it comes in waves, started last night, came on gradually is progressively worsening, describes it as sharp in nature, currently a 10 out of 10, but will periodically ease up , endorses shortness of breath with these episodes, denies any fever chills, denies any real nausea vomiting constipation diarrhea, no melena no hematochezia no hematemesis or hemoptysis, no urinary type symptomatology, patient is current avid a smoker, utilizes occasional marijuana, denies any alcohol use, other past medical history consistent with BPH, lesion on right kidney that is being followed by urologist, has had negative MRI thus far, also has infrarenal AAA, without rupture, diverticulosis, hiatal hernia, degenerative disc disease of the spine. Initial triage vitals unremarkable. Onset (ago): hour(s) Related Data Home Medications ?Medication ?Instructions ?Recorded ?Confirmed acetaminophen 500 mg tablet 500 mg PO Q6H PRN 12/11/23 06/03/24 (Tylenol Extra Strength) bupropion HCl 150 mg tablet,12 hr mg PO 06/03/24 06/03/24 sustained-release ciprofloxacin HCl 500 mg tablet mg PO 06/03/24 06/03/24 gabapentin 400 mg capsule mg PO 06/03/24 06/03/24 prazosin 1 mg capsule mg PO 06/03/24 06/03/24 quetiapine 50 mg tablet mg PO 06/03/24 06/03/24 sildenafil (pulm.hypertension) 20 mg PO 06/03/24 06/03/24 mg tablet tamsulosin 0.4 mg capsule mg PO 06/03/24 06/03/24 venlafaxine 75 mg capsule,extended mg PO 06/03/24 06/03/24 release 24 hr Previous Rx's ?Medication ?Instructions ?Recorded duloxetine 30 mg capsule,delayed 30 mg PO DAILY #30 caps 02/12/24 release quetiapine 25 mg tablet (Seroquel) 25 mg PO DAILY #30 tabs 02/12/24 prednisone 20 mg tablet 40 mg (2 x 20 mg) PO DAILY 5 days 05/21/24 #10 tabs methocarbamol 500 mg tablet 1,000 mg (2 x 500 mg) PO Q8H PRN 10/03/24 muscle pain and spasm #30 tabs cyclobenzaprine 10 mg tablet 10 mg PO HS #20 tabs 11/06/24 methylprednisolone 4 mg tablets in 4 mg PO DAILY #21 tabs 11/06/24 a dose pack (Medrol (Bryon)) Allergies Allergy/AdvReac Type Severity Reaction Status Date / Time codeine Allergy itching Verified 10/03/24 07:51 PFS <LIA Casas - Last Filed: 11/06/24 17:53> COUNT INCLUDES THE [facility] Disclaimer: The information contained in this section may have been updated after the patient was seen, as this information can be updated by other users. Medical History Joint pain Fatigue Benign prostatic hyperplasia Tobacco abuse Migraines Diverticulosis Hernia, hiatal Infrarenal abdominal aortic aneurysm (AAA) without rupture Lesion of right seminole kidney He needs an MRI of the right kidney in one month Surgical History No history of previous surgery 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 Smoking Status: Current every day smoker alcohol intake: never substance use type: former substance user current occupational status: employed Travel in the last 8 weeks?: None Have you lived/traveled outside US in past 30 days?: No Contact w/someone who lives/traveled outside US past 30 days?: No Exposure to someone with infectious disease in past 14 days?: No Do you have a fever (greater than 100.4 F or 38 C)?: No Have you tested positive for COVID-19?: No Exposed to someone with COVID-19 in past 14 days?: No Do you have a sore throat?: No Do you have a cough?: No Do you have any weakness?: No Do you have any diarrhea?: No Are you experiencing any unusual bleeding?: No Do you have any muscle aches/pain?: No Do you have any abdominal pain?: No Are you experiencing loss of taste or smell?: No <LIA Casas - Last Filed: 11/06/24 17:53> ROS Obtained: Yes All systems reviewed & no additional complaints except as documented Physical Exam <LIA Casas - Last Filed: 11/06/24 17:53> General General appearance: alert and in no apparent distress Comment: In obvious pain/uncomfortable appearing male Head Head exam: atraumatic and normocephalic Eye Eye exam: Present PERRL and EOMI ENT ENT exam: Present mucous membranes moist Neck Neck exam: Present normal inspection Chest Chest inspection: Present normal inspection, symmetric chest wall rise, tenderness and other (There is tenderness over the anterior chest wall at times, that is mild in nature) Respiratory Respiratory exam: Present normal lung sounds bilaterally; Absent respiratory distress, wheezes or stridor Cardiovascular Cardiovascular exam: Present regular rate and normal rhythm Abdominal Exam Abdominal exam: Present soft and tenderness; Absent Martínez's sign or tenderness at [place] Abdominal tenderness: Present epigastrium Comment: Mild midepigastric tenderness to palpation Extremities Exam Extremities exam: Present normal inspection Back Exam Back exam: Present normal inspection, tenderness and paraspinal tenderness Comment: There is paraspinal tenderness to palpation to the mid thoracic spine, negative C-spine and L-spine paraspinal spinal tenderness palpation, no spinal tenderness palpation to thoracic spine. Neurological Exam Neurological exam: Present alert and oriented X3 Psychiatric Psychiatric exam: Present normal affect Skin Skin exam: Present warm and dry Medical Decision Making <LIA Casas - Last Filed: 11/06/24 17:53> Medical Records Medical records reviewed: Yes I reviewed the patient's medical records. Screening: Per USPSTF and CDC recommendations, given the prevalence of disease in our region, it is our hospital?s policy to screen for HIV and viral Hepatitis for all patients aged 18 and over and those with ongoing risk factors. C[place] Inquiry Pt receiving controlled substance: Yes C[place]rick was queried for this patient: No Reason not queried -: Emergent pt cond-no time Risks and benefits of using a controlled substance: were discussed with pt by me Vital Signs: 11/06/24 13:08 11/06/24 13:11 11/06/24 13:30 Temperature 98.2 F 98.2 F Temperature Source Oral Oral Pulse Rate 94 H 103 H Pulse Rate [Right] 94 H Respiratory Rate 18 18 Blood Pressure 113/80 124/98 H Blood Pressure [Right Arm] 113/80 Blood Pressure Mean [Right Arm] 91 Blood Pressure Source Automatic Cuff Blood Pressure Source [Right Arm] Automatic Cuff Blood Pressure Position Supine Blood Pressure Position [Right Arm] Sitting 02 Sat by Pulse Oximetry 98 98 96 Oxygen Delivery Method Room Air Room Air Room Air 11/06/24 14:00 11/06/24 14:30 11/06/24 15:00 Temperature Temperature Source Pulse Rate 94 H 99 H 103 H Pulse Rate [Right] Respiratory Rate Blood Pressure 124/88 109/86 L 116/86 Blood Pressure [Right Arm] Blood Pressure Mean [Right Arm] Blood Pressure Source Blood Pressure Source [Right Arm] Blood Pressure Position Blood Pressure Position [Right Arm] 02 Sat by Pulse Oximetry 95 95 95 Oxygen Delivery Method Room Air Room Air Room Air 11/06/24 15:30 11/06/24 16:00 11/06/24 16:30 Temperature Temperature Source Pulse Rate 89 94 H 90 Pulse Rate [Right] Respiratory Rate Blood Pressure 112/79 103/77 L 105/87 L Blood Pressure [Right Arm] Blood Pressure Mean [Right Arm] Blood Pressure Source Blood Pressure Source [Right Arm] Blood Pressure Position Blood Pressure Position [Right Arm] 02 Sat by Pulse Oximetry 96 95 95 Oxygen Delivery Method Room Air Room Air 11/06/24 16:45 11/06/24 17:15 11/06/24 17:31 Temperature Temperature Source Pulse Rate 82 69 71 Pulse Rate [Right] Respiratory Rate Blood Pressure 125/100 H 113/91 H Blood Pressure [Right Arm] Blood Pressure Mean [Right Arm] Blood Pressure Source Blood Pressure Source [Right Arm] Blood Pressure Position Blood Pressure Position [Right Arm] 02 Sat by Pulse Oximetry 95 92 L 94 L Oxygen Delivery Method Room Air Room Air 11/06/24 18:00 11/06/24 18:00 Temperature 98.2 F Temperature Source Pulse Rate 78 76 Pulse Rate [Right] Respiratory Rate 16 Blood Pressure 121/89 121/89 Blood Pressure [Right Arm] Blood Pressure Mean [Right Arm] Blood Pressure Source Blood Pressure Source [Right Arm] Blood Pressure Position Blood Pressure Position [Right Arm] 02 Sat by Pulse Oximetry 94 L Oxygen Delivery Method Room Air Lab Data Lab results reviewed: Yes I reviewed the patient's lab results. Lab Results 11/06/24 13:27: WBC 7.3, RBC 5.43, Hgb 16.7, Hct 47.3, MCV 87.1, MCH 30.8, MCHC 35.3, RDW 12.8, Plt Count 231, MPV 9.5, Neut % (Auto) 50.1, Lymph % (Auto) 37.4, [place] % (Auto) 8.9, Eos % (Auto) 2.5, Baso % (Auto) 1.0, Neut # (Auto) 3.7, Lymph # (Auto) 2.7, [place] # (Auto) 0.7, Eos # (Auto) 0.2, Baso # (Auto) 0.1, Sodium 137, Potassium 4.2, Chloride 106, Carbon Dioxide 24, Anion Gap 11.2, BUN 19, Creatinine 1.20, Estimated Creat Clear 88, Estimated GFR 62, Est GFR ( Amer) 75, Glucose 110 H, Calcium 9.2, Total Bilirubin 1.4 H, AST 52, ALT 57, Alkaline Phosphatase 90, Troponin I < 0.01, Total Protein 7.9, Albumin 4.9, Globulin 3.0, Albumin/Globulin Ratio 1.6, Lipase 94 11/06/24 13:40: Urine Color Yellow, Urine Appearance Clear, Urine pH 6.5, Ur Specific [place] 1.020, Urine Protein Negative, Urine Glucose (UA) Negative, Urine Ketones Negative, Urine Blood Negative, Urine Nitrate Negative, Urine Bilirubin Negative, Urine Urobilinogen 1.0, Ur Leukocyte Esterase Negative, Urine RBC None, Urine WBC Occasional, Ur Squamous Epith Cells Occasional, Urine Bacteria Trace 11/06/24 16:49: Troponin I < 0.01 11/06/24 13:27 11/06/24 13:27 Orders (Tests/Meds): ED MEDICATIONS Discontinued Medications Generic Name Dose Route Start Last Admin Trade Name Freq PRN Reason Stop Dose Admin Acetaminophen 1,000 mg 11/06/24 13:19 11/06/24 13:35 Acetaminophen 1,000mg/100ml Vial IV 11/06/24 13:20 1,000 mg ONCE ONE Administration Diazepam 5 mg 11/06/24 17:29 11/06/24 17:52 Diazepam 5mg Tablet PO 11/06/24 17:30 5 mg ONCE ONE Administration Hydromorphone HCl 0.5 mg 11/06/24 15:00 11/06/24 15:03 Hydromorphone 2mg/Ml Syringe IV 11/06/24 15:01 0.5 mg ONCE ONE Administration Hydromorphone HCl 0.5 mg 11/06/24 17:15 11/06/24 17:52 Hydromorphone 2mg/Ml Syringe IV 11/06/24 17:16 0.5 mg ONCE ONE Administration Iopamidol 80 ml 11/06/24 15:08 11/06/24 15:10 Iopamidol-370 (76%);100ml Bottle IV 11/06/24 15:09 80 ml ONCE ONE Administration Ketorolac Tromethamine 15 mg 11/06/24 13:19 11/06/24 13:35 Ketorolac 30mg/Ml Vial IV 11/06/24 13:20 15 mg ONCE ONE Administration Lidocaine 1 each 11/06/24 17:29 11/06/24 17:52 Lidocaine 5% Transdermal Patch TD 11/06/24 17:30 1 each ONCE ONE Administration Morphine Sulfate 2 mg 11/06/24 13:23 11/06/24 13:35 Morphine 4mg/Ml Syringe IV 11/06/24 13:24 2 mg ONCE ONE Administration Ondansetron HCl 4 mg 11/06/24 13:23 11/06/24 13:36 Ondansetron 4mg/2ml Vial IV 11/06/24 13:24 4 mg ONCE ONE Administration Sodium Chloride 40 ml 11/06/24 15:08 11/06/24 15:09 0.9 % Sodium Chloride 50 Ml Vial IV 11/06/24 15:09 40 ml ONCE ONE Administration Sodium Chloride 10 ml 11/06/24 15:08 11/06/24 15:09 Sodium Chloride 0.9% 10ml Syr (Rad Only) IV 11/06/24 15:09 10 ml ONCE ONE Administration ORDERS Category Date Time Status CT angio abdomen pelvis Stat Cat Scan 11/06/24 13:20 Completed CTA Chest [CT angio chest - dissection] Stat Cat Scan 11/06/24 13:22 Completed POCUS Point of Care (ER Only) Stat Exams 11/06/24 13:19 Taken CBC w/Auto Diff [Complete Blood Count Auto Diff] Stat Lab 11/06/24 13:27 Completed CMP [Comprehensive Metabolic Panel] Stat Lab 11/06/24 13:27 Completed Lipase Stat Lab 11/06/24 13:27 Completed Trop I [Troponin I] Stat Lab 11/06/24 13:27 Completed Troponin I Q3H Lab 11/06/24 16:49 Completed UA [Urinalysis and Microscopic] Stat Lab 11/06/24 13:40 Completed Medical Decision Narrative: 59-year-old male presents to the emergency department with midepigastric/chest pain that radiates into the back, differential diagnose include but limited to, cholecystitis, cholelithiasis, choledocholithiasis, AAA, aortic dissection, PE, ACS, cardiac arrhythmia, electro disturbance, gastritis, GERD, gastritis, thoracic myofascial strain, costochondritis, pneumothorax pneumonia, rib fracture, acute UTI, nephrolithiasis, acute pyelonephritis, malignancy among others. I discussed patient case with Dr. Montero the attending physician Will obtain basic laboratory studies lipase troponin urinalysis, EKG, POCUS ultrasound, CTA of the abdomen and chest will be performed, will give 1000 mg IV Tylenol 50 mg IV Toradol for 2 mg IV morphine and 4 mg of Zofran for pain and nausea. CBC unremarkable Total bilirubin is only elevated at 1.4 Urinalysis is notable for negative leukocyte esterase, no RBCs, negative hematuria, occasional squamous cell epithelial cells, trace urine bacteria, no nitrites. Was notified by nursing staff at approximately 3 PM the patient is still complaining of some pain, will give 0.5 mg IV Dilaudid for pain. I reviewed the patient's CTA abdomen pelvis with and without contrast along the corresponding radiologic report, there is ectasia of the abdominal aorta, increased in size from the previous exam and right common iliac artery. I reviewed the patient's CTA chest with without contrast, corresponding radiologic report, no pulmonary embolus or dissection. I went to discuss results with the patient and family at the bedside at approximately 5:10 PM, patient is actively pacing around the room, stating that you given you nothing for my pain discussed that we have already given multiple medications for the patient's pain, and discussed all nonemergent results/findings with the patient, patient did exhibit some pain seeking behaviors. Give additional dose of 0.5 IV Dilaudid for pain. Discussed case case with attending physician Dr. Colón who saw and examined the patient as well. Will add on lidocaine patch, 5 mg p.o. Valium, repeat troponin is less than 0.01, most likely musculoskeletal type thoracic myofascial sprain in nature, to the patient symptomatology, patient did exhibit some pain seeking behaviors, was counseled on this, patient will be sent home with Flexeril 10 mg p.o. to take as needed, as well as a methylprednisone steroid pack for the acute inflammatory phase, patient will return to emergency with any worsening signs or symptoms, strict ED return precautions given. Patient voiced understand agree with current plan/discharge plan, patient is no upper or lower extremity weakness, no urinary bladder or bowel dysfunction no other red flag signs or symptoms. <Fléix Montero MD - Last Filed: 11/07/24 08:19> Vital Signs: 11/06/24 13:08 11/06/24 13:11 11/06/24 13:30 Temperature 98.2 F 98.2 F Temperature Source Oral Oral Pulse Rate 94 H 103 H Pulse Rate [Right] 94 H Respiratory Rate 18 18 Blood Pressure 113/80 124/98 H Blood Pressure [Right Arm] 113/80 Blood Pressure Mean [Right Arm] 91 Blood Pressure Source Automatic Cuff Blood Pressure Source [Right Arm] Automatic Cuff Blood Pressure Position Supine Blood Pressure Position [Right Arm] Sitting 02 Sat by Pulse Oximetry 98 98 96 Oxygen Delivery Method Room Air Room Air Room Air 11/06/24 14:00 11/06/24 14:30 11/06/24 15:00 Temperature Temperature Source Pulse Rate 94 H 99 H 103 H Pulse Rate [Right] Respiratory Rate Blood Pressure 124/88 109/86 L 116/86 Blood Pressure [Right Arm] Blood Pressure Mean [Right Arm] Blood Pressure Source Blood Pressure Source [Right Arm] Blood Pressure Position Blood Pressure Position [Right Arm] 02 Sat by Pulse Oximetry 95 95 95 Oxygen Delivery Method Room Air Room Air Room Air 11/06/24 15:30 11/06/24 16:00 11/06/24 16:30 Temperature Temperature Source Pulse Rate 89 94 H 90 Pulse Rate [Right] Respiratory Rate Blood Pressure 112/79 103/77 L 105/87 L Blood Pressure [Right Arm] Blood Pressure Mean [Right Arm] Blood Pressure Source Blood Pressure Source [Right Arm] Blood Pressure Position Blood Pressure Position [Right Arm] 02 Sat by Pulse Oximetry 96 95 95 Oxygen Delivery Method Room Air Room Air 11/06/24 16:45 11/06/24 17:15 11/06/24 17:31 Temperature Temperature Source Pulse Rate 82 69 71 Pulse Rate [Right] Respiratory Rate Blood Pressure 125/100 H 113/91 H Blood Pressure [Right Arm] Blood Pressure Mean [Right Arm] Blood Pressure Source Blood Pressure Source [Right Arm] Blood Pressure Position Blood Pressure Position [Right Arm] 02 Sat by Pulse Oximetry 95 92 L 94 L Oxygen Delivery Method Room Air Room Air 11/06/24 18:00 11/06/24 18:00 Temperature 98.2 F Temperature Source Pulse Rate 78 76 Pulse Rate [Right] Respiratory Rate 16 Blood Pressure 121/89 121/89 Blood Pressure [Right Arm] Blood Pressure Mean [Right Arm] Blood Pressure Source Blood Pressure Source [Right Arm] Blood Pressure Position Blood Pressure Position [Right Arm] 02 Sat by Pulse Oximetry 94 L Oxygen Delivery Method Room Air Lab Data Lab Results 11/06/24 13:27: WBC 7.3, RBC 5.43, Hgb 16.7, Hct 47.3, MCV 87.1, MCH 30.8, MCHC 35.3, RDW 12.8, Plt Count 231, MPV 9.5, Neut % (Auto) 50.1, Lymph % (Auto) 37.4, [place] % (Auto) 8.9, Eos % (Auto) 2.5, Baso % (Auto) 1.0, Neut # (Auto) 3.7, Lymph # (Auto) 2.7, [place] # (Auto) 0.7, Eos # (Auto) 0.2, Baso # (Auto) 0.1, Sodium 137, Potassium 4.2, Chloride 106, Carbon Dioxide 24, Anion Gap 11.2, BUN 19, Creatinine 1.20, Estimated Creat Clear 88, Estimated GFR 62, Est GFR ( Amer) 75, Glucose 110 H, Calcium 9.2, Total Bilirubin 1.4 H, AST 52, ALT 57, Alkaline Phosphatase 90, Troponin I < 0.01, Total Protein 7.9, Albumin 4.9, Globulin 3.0, Albumin/Globulin Ratio 1.6, Lipase 94 11/06/24 13:40: Urine Color Yellow, Urine Appearance Clear, Urine pH 6.5, Ur Specific [place] 1.020, Urine Protein Negative, Urine Glucose (UA) Negative, Urine Ketones Negative, Urine Blood Negative, Urine Nitrate Negative, Urine Bilirubin Negative, Urine Urobilinogen 1.0, Ur Leukocyte Esterase Negative, Urine RBC None, Urine WBC Occasional, Ur Squamous Epith Cells Occasional, Urine Bacteria Trace 11/06/24 16:49: Troponin I < 0.01 Orders (Tests/Meds): ED MEDICATIONS Discontinued Medications Generic Name Dose Route Start Last Admin Trade Name Ela PRN Reason Stop Dose Admin Acetaminophen 1,000 mg 11/06/24 13:19 11/06/24 13:35 Acetaminophen 1,000mg/100ml Vial IV 11/06/24 13:20 1,000 mg ONCE ONE Administration Diazepam 5 mg 11/06/24 17:29 11/06/24 17:52 Diazepam 5mg Tablet PO 11/06/24 17:30 5 mg ONCE ONE Administration Hydromorphone HCl 0.5 mg 11/06/24 15:00 11/06/24 15:03 Hydromorphone 2mg/Ml Syringe IV 11/06/24 15:01 0.5 mg ONCE ONE Administration Hydromorphone HCl 0.5 mg 11/06/24 17:15 11/06/24 17:52 Hydromorphone 2mg/Ml Syringe IV 11/06/24 17:16 0.5 mg ONCE ONE Administration Iopamidol 80 ml 11/06/24 15:08 11/06/24 15:10 Iopamidol-370 (76%);100ml Bottle IV 11/06/24 15:09 80 ml ONCE ONE Administration Ketorolac Tromethamine 15 mg 11/06/24 13:19 11/06/24 13:35 Ketorolac 30mg/Ml Vial IV 11/06/24 13:20 15 mg ONCE ONE Administration Lidocaine 1 each 11/06/24 17:29 11/06/24 17:52 Lidocaine 5% Transdermal Patch TD 11/06/24 17:30 1 each ONCE ONE Administration Morphine Sulfate 2 mg 11/06/24 13:23 11/06/24 13:35 Morphine 4mg/Ml Syringe IV 11/06/24 13:24 2 mg ONCE ONE Administration Ondansetron HCl 4 mg 11/06/24 13:23 11/06/24 13:36 Ondansetron 4mg/2ml Vial IV 11/06/24 13:24 4 mg ONCE ONE Administration Sodium Chloride 40 ml 11/06/24 15:08 11/06/24 15:09 0.9 % Sodium Chloride 50 Ml Vial IV 11/06/24 15:09 40 ml ONCE ONE Administration Sodium Chloride 10 ml 11/06/24 15:08 11/06/24 15:09 Sodium Chloride 0.9% 10ml Syr (Rad Only) IV 11/06/24 15:09 10 ml ONCE ONE Administration ORDERS Category Date Time Status CT angio abdomen pelvis Stat Cat Scan 11/06/24 13:20 Completed CTA Chest [CT angio chest - dissection] Stat Cat Scan 11/06/24 13:22 Completed POCUS Point of Care (ER Only) Stat Exams 11/06/24 13:19 Taken CBC w/Auto Diff [Complete Blood Count Auto Diff] Stat Lab 11/06/24 13:27 Completed CMP [Comprehensive Metabolic Panel] Stat Lab 11/06/24 13:27 Completed Lipase Stat Lab 11/06/24 13:27 Completed Trop I [Troponin I] Stat Lab 11/06/24 13:27 Completed Troponin I Q3H Lab 11/06/24 16:49 Completed UA [Urinalysis and Microscopic] Stat Lab 11/06/24 13:40 Completed Medical Decision Narrative: 59-year-old male presents to the emergency department with midepigastric/chest pain that radiates into the back, differential diagnose include but limited to, cholecystitis, cholelithiasis, choledocholithiasis, AAA, aortic dissection, PE, ACS, cardiac arrhythmia, electro disturbance, gastritis, GERD, gastritis, thoracic myofascial strain, costochondritis, pneumothorax pneumonia, rib fracture, acute UTI, nephrolithiasis, acute pyelonephritis, malignancy among others. I discussed patient case with Dr. Montero the attending physician Will obtain basic laboratory studies lipase troponin urinalysis, EKG, POCUS ultrasound, CTA of the abdomen and chest will be performed, will give 1000 mg IV Tylenol 50 mg IV Toradol for 2 mg IV morphine and 4 mg of Zofran for pain and nausea. CBC unremarkable Total bilirubin is only elevated at 1.4 Urinalysis is notable for negative leukocyte esterase, no RBCs, negative hematuria, occasional squamous cell epithelial cells, trace urine bacteria, no nitrites. Was notified by nursing staff at approximately 3 PM the patient is still complaining of some pain, will give 0.5 mg IV Dilaudid for pain. I reviewed the patient's CTA abdomen pelvis with and without contrast along the corresponding radiologic report, there is ectasia of the abdominal aorta, increased in size from the previous exam and right common iliac artery. I reviewed the patient's CTA chest with without contrast, corresponding radiologic report, no pulmonary embolus or dissection. I went to discuss results with the patient and family at the bedside at approximately 5:10 PM, patient is actively pacing around the room, stating that you given you nothing for my pain discussed that we have already given multiple medications for the patient's pain, and discussed all nonemergent results/findings with the patient, patient did exhibit some pain seeking behaviors. Give additional dose of 0.5 IV Dilaudid for pain. Discussed case case with attending physician Dr. Colón who saw and examined the patient as well. Will add on lidocaine patch, 5 mg p.o. Valium, repeat troponin is less than 0.01, most likely musculoskeletal type thoracic myofascial sprain in nature, to the patient symptomatology, patient did exhibit some pain seeking behaviors, was counseled on this, patient will be sent home with Flexeril 10 mg p.o. to take as needed, as well as a methylprednisone steroid pack for the acute inflammatory phase, patient will return to emergency with any worsening signs or symptoms, strict ED return precautions given. Patient voiced understand agree with current plan/discharge plan, patient is no upper or lower extremity weakness, no urinary bladder or bowel dysfunction no other red flag signs or symptoms. I was consulted by the GEE, and we discussed the complexity of the problems being addressed. I approved the treatment and management plan for this patient's care in the Emergency Department, thus performing a substantive portion of the medical decision making. Félix Montero MD Critical Care <LIA Casas - Last Filed: 11/06/24 17:53> Critical Care Time Critical Care Time: No
--- NOTE | 2024-11-06 13:20 | CT_ITS ---
FINAL REPORT TECHNIQUE: Pre-and postcontrast images of the abdomen through the pelvis were performed by computed tomography. Extensive 3-D reconstruction images were performed. A CTA was performed. This study was performed with techniques to keep radiation doses as low as reasonably achievable (ALARA). Individualized dose reduction techniques using automated exposure control or adjustment of mA and/or kV according to the patient's size were employed. CLINICAL HISTORY: midline abd pain, AAA COMPARISON: 01/04/2024 FINDINGS: ABDOMEN: There is mild fatty infiltration of the liver. The gallbladder is present. The spleen, pancreas, and adrenal glands are within normal limits. Benign cysts are noted in both kidneys measuring up to 2.0 cm in greatest dimension. PELVIS: The appendix is not identified. There are scattered diverticula in the descending and sigmoid colon. The urinary bladder is decompressed. There is no significant free fluid or adenopathy. The bony pelvis is unremarkable. CTA: Infrarenal abdominal aortic aneurysm is noted measuring 2.9 x 2.8 cm. There are mild vascular calcifications in the iliac vessels. Right common iliac artery measures 1.6 cm in greatest dimension. IMPRESSION: Ectasia of the abdominal aorta, increased in size from the previous exam, and right common iliac artery. Reviewed, Interpreted and Dictated by Redd Bartlett MD Transcribed by Lily Bush Authenticated and [facility]
--- NOTE | 2024-11-06 13:22 | CT_ITS ---
FINAL REPORT TECHNIQUE: The patient was injected with IV contrast. Axial images were obtained through the chest in a PE protocol. 3-D reconstruction images were also performed. Individualized dose reduction techniques using automated exposure control or adjustment of the MA and/or KV according to patient's size were employed. CLINICAL HISTORY: Midthoracic/chest pain FINDINGS: Mediastinal vasculature is adequately opacified. No pulmonary artery filling defects are identified to suggest PE. There is no aortic dissection. There is no axillary adenopathy. There is no hilar or mediastinal adenopathy. The heart size is normal. There is no pericardial or pleural effusion. There is scarring in the lung bases. No suspicious infiltrate or nodule is identified. IMPRESSION: No pulmonary embolus or dissection. Reviewed, Interpreted and Dictated by Redd Bartlett MD Transcribed by Meg Leahy Authenticated and [facility]
[2024-11-06] MEDS: KETOROLAC 30MG/ML VIAL 15 MG IV (13:35)
[2024-11-06] MEDS: MORPHINE 4MG/ML SYRINGE 2 MG IV (13:35)
[2024-11-06] MEDS: ACETAMINOPHEN 1,000MG/100ML VIAL 1000 MG IV (13:35)
[2024-11-06] MEDS: ONDANSETRON 4MG/2ML VIAL 4 MG IV (13:36)
[2024-11-06 13:44] LABS: Microscopic, Urine URINE MICROSCOPIC (MICROSCOPIC)
[2024-11-06 13:46] LABS: Basophils # 0.1 K/mm3 (0-0.2); Eosinophils # 0.2 Kmm3 (0.0-0.4); Eosinophils % 2.5 % (0.1-12.0); Hematocrit 47.3 % (42.0-52.0); Hemoglobin 16.7 g/dL (14.1-18.0); Immature Granulocytes # 0.01 10^3uL; Immature Granulocytes % 0.1 %; Lymphocytes # 2.7 K/mm3 (0.7-4.5); Lymphocytes % 37.4 % (10-50); Mean Corpuscular HGB Conc 35.3 g/dL (31.8-35.4); Mean Corpuscular Hemoglobin 30.8 pg (27.0-31.2); Mean Corpuscular Volume 87.1 fl (80-94); Mean Platelet Volume 9.5 fl (7.4-10.4); Monocytes # 0.7 K/mm3 (0.1-1.0); Monocytes % 8.9 % (1.7-9.3); Neutrophils # 3.7 K/mm3 (1.8-7.8); Neutrophils % 50.1 % (37.0-80.0); Nucleated Red Blood Cells # 0 10^3/uL; Nucleated Red Blood Cells % 0 %; Platelet Count 231 K/mm3 (142-424); Red Blood Count 5.43 M/mm3 (4.60-6.20); Red Cell Distribution Width 12.8 % (11.5-17.5); Red Cell Distribution Width-SD 39.8 fL; White Blood Count 7.3 K/mm3 (4.8-10.8)
[2024-11-06 13:46] LABS: Appearance,Urine CLEAR (Clear); Bilirubin,Urine Negative (Negative); Blood, Urine Negative (Negative); Color,Urine YELLOW (Yellow); Glucose,Urine (UA) Negative (Negative); Ketones,Urine Negative (Negative); Leukocyte Esterase,Urine Negative (Negative); Nitrate,Urine Negative (Negative); PH,Urine 6.5 (5.0-8.5); Protein,Urine Negative (Negative)
[2024-11-06 13:49] LABS: Albumin Level 4.9 g/dl (3.5-5.0); Chloride 106 mmol/L (98-107); Potassium 4.2 mmoL/L (3.5-5.1); Sodium 137 mmol/L (136-145)
[2024-11-06 13:52] LABS: Alanine Aminotransferase 57 U/L (12-78); Albumin/Globulin Ratio 1.6 (1.1-1.8); Alkaline Phosphatase 90 U/L (38-126); Anion Gap 11.2 mEq/L (5-15); Aspartate Amino Transferase 52 U/L (17-59); Bilirubin,Total 1.4 mg/dl (0.2-1.3); Blood Urea Nitrogen 19 mg/dl (9-20); Calcium 9.2 mg/dl (8.4-10.2); Carbon Dioxide 24 mmol/L (22.0-30.0); Creatinine Clearance Estimated 88 mL/min (50-200); Estimated Glomerular Filt Rate 62 ml/min (>60); GFR (African American) 75 ML/MIN (>60); Glucose 110 mg/dl (74-100); Lipase 94 U/L (23-300); Total Protein,Serum 7.9 g/dl (6.3-8.2)
[2024-11-06 14:21] LABS: Troponin I < 0.01 ng/ml (0.00-0.034)
[2024-11-06 14:30] LABS: Bacteria,Urine Trace /lpf; Squamous Epithelial Cell,Urine Occasional #/hpf (0-5); WBC,Urine Occasional #/hpf (0-3)
[2024-11-06] MEDS: HYDROMORPHONE 2MG/ML SYRINGE 0.5 MG IV ×2 (15:03→17:52)
[2024-11-06] MEDS: 0.9 % SODIUM CHLORIDE 50 ML VIAL 40 ML IV (15:09)
[2024-11-06] MEDS: SODIUM CHLORIDE 0.9% 10ML SYR (RAD ONLY) 10 ML IV (15:09)
[2024-11-06] MEDS: IOPAMIDOL-370 (76%);100ML BOTTLE 80 ML IV (15:10)
--- NOTE | 2024-11-06 16:53 | PC.NURSE ---
Marya collected and sent to lab.
[2024-11-06 17:48] LABS: Troponin I < 0.01 ng/ml (0.00-0.034)
[2024-11-06] MEDS: diazePAM 5MG TABLET 5 MG PO (17:52)
[2024-11-06] MEDS: LIDOCAINE 5% TRANSDERMAL PATCH 1 EACH TD (17:52)
== END 2024-11-06 18:06 | disposition home or self-care (01) ==
PROVIDERS: Emergency Medicine; Emergency Provider Emergency Medicine
DX: R10.10 Upper abdominal pain, unspecified (principal); M62.838 Other muscle spasm; F17.210 Nicotine dependence, cigarettes, uncomplicated; M25.50 Pain in unspecified joint
CPT/HCPCS: 71275; 74174; 80053; 81001; 83690; 84484; 85025; 96361; 96374; 96375; 99285; J0131; J1171; J1885; J2270; J2405; Q9967

== ENCOUNTER 2024-11-18 08:43 | Outpatient (CLI) | payer MEDICAID, SELFPAY ==
--- NOTE | 2024-11-18 09:00 | US_ITS ---
FINAL REPORT TECHNIQUE: Sonographic images of the right upper quadrant were obtained. CLINICAL HISTORY: Abdominal pain COMPARISON: None FINDINGS: The pancreas is partially obscured. There is fatty infiltration of the liver. There is a small amount of sludge noted in the gallbladder. There is no evidence of gallstones. There is no evidence of biliary ductal dilatation. The common duct measures 2 mm. There is a 1.8 x 1.5 cm cyst in the right kidney. IMPRESSION: Fatty liver. Right kidney cyst. Reviewed, Interpreted and Dictated by Redd Bartlett MD Transcribed by Areli Cunningham Authenticated and [facility]
== END 2024-11-18 23:59 | disposition home or self-care (01) ==
LOC: RAD 08:44
PROVIDERS: PCP Family Medicine; Visit Provider Family Medicine
DX: K76.0 Fatty (change of) liver, not elsewhere classified (principal); N28.1 Cyst of kidney, acquired; R10.9 Unspecified abdominal pain
CPT/HCPCS: 76705

== ENCOUNTER 2024-12-02 09:52 | Outpatient (CLI) | payer MEDICAID, SELFPAY ==
--- OUTSIDE RECORDS SUMMARY | 2024-12-02 09:58 | XMS_ITS | Encounter Summary ---
Author Organization [facility] Address [address] [place] [address] Care Team Providers Care Rides Attendant Name Role Phone System, Provider Not In MD Primary Care Provider Unavailable Reason for Referral * Consultation (Routine) - Closed Specialty Diagnoses / Procedures Referred By Gonzalo galicia Referred To Contact Hand Surgery Diagnoses Other secondary osteoarthritis of right wrist Charles Quinonez DO [address] [facility] [address] [place] [address] Phone: tel: fax: Nicanor Valenzuela MD [address] [place] [phone] Phone: tel: fax: Referral ID Status Reason Start Date Expiration Date V isits Requested Visits Authorized [id number] Closed Specialty Services Required 06/03/2024 12/03/2025 1 1 Encounter Details Date Type Department Care Team (Latest Contact Info) Description 06/03/2024 [facility] [address] [place] [address] Charles Quinonez DO [address] [facility] [address] [place] [address] Other secondary osteoarthritis of right wrist (Primary Dx) 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 Tobacco Use Types Packs/Day Years Used Date Smoking Tobacco: Never Assessed Sex and Gender Information Value Date Recorded Sex Assigned at Not on file Legal Sex Male 6:33 PM EDT Gender Identity Not on file Sexual Orientation Not on file documented as of this encounter Plan of Treatment Scheduled Referrals Name Type Priority Associated Diagnoses Orde r Schedule Ambulatory referral to Hand Surgery Outpatient Referral Routine Other secondary osteoarthritis of right wrist Expected: 06/03/2024 (Approximate), Expires: 06/03/2025 documented as of this encounter Visit Diagnoses Diagnosis Other secondary osteoarthritis of right wrist- Primary documented in this encounter Care Teams Rides Attendant Relationship Specialty Start Date End Date System, Provider Not In, [place] [address] PCP - General Family Medicine 06/06/24 documented as of this encounter
--- OUTSIDE RECORDS SUMMARY | 2024-12-02 09:58 | XMS_ITS | Continuity of Care Document ---
Author Organization [facility] Address [address] [place] [address] Phone Care Team Providers Care Crusher Foreman Name Role Phone No Pcp, Provider Not In [facility] Primary Care Provid er Unavailable Encounters Date Type Department Care Team Description 05/06/2024 External Contact [facility] [place] [address] [place] [address] Heath Beasley MD Polysubstance abuse (HCC) [F19.10] (Primary Dx); Mixed hyperlipidemia [E78.2]; Homelessness [Z59.00]; Anemia, unspecified type [D64.9] 05/04/2024 External Contact [facility] [place] [address] [place] [address] Areli Palacios APRN Marijuana dependence (HCC) (Primary Dx); Tobacco abuse; Auditory hallucinations; Suicidal ideation; Chronic left-sided low back pain without sciatica; Renal cyst; Elevated blood pressure reading in office without diagnosis of hypertension; Medical clearance for psychiatric admission 05/03/2024 Travel 05/03/2024 9:00 PM EST - 05/03/2024 11:50 PM EST [facility] [address] [place] [address] Dontrell Payne MD Suicidal ideation (Primary Dx); Left flank pain Discharge Disposition: Psychiatric Hospital 05/02/2024 Travel 05/02/2024 8:27 PM EST - 05/02/2024 10:58 PM EST Emergency [facility] [address] [place] [address] Arthur Calderón MD Left flank pain (Primary Dx); Homeless Discharge Disposition: Home or Self Care 04/28/2024 External Contact [facility] [place] [address] [place] [place] 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 [place] [address] Sarah Beth Corral MD Screening for colon cancer; Screening for cancer of the rectum 03/05/2020 Patient Outreach [facility] [address] [place] [address] Leydi Puga [employer] Follow-Up Call 03/03/2020 Travel 03/03/2020 5:18 PM EDT - 03/03/2020 6:54 PM EDT [facility] [address] [place] [address] Matilde Tinoco MD Chest wall pain (Primary Dx); Spasm of muscle Discharge Disposition: Home or Self Care 02/13/2020 Orders Only [facility] [address] [place] [address] Sarah Beth Corral MD Screening for colon cancer; Screening for cancer of the rectum 08/27/2019 Travel 06/04/2019 9:00 AM EST Office Visit [facility] [address] [place] [address] Sarah Beth Corral MD Mood disorder (Primary Dx); Psychophysiological insomnia; Panic attacks 06/01/2019 1:39 PM EST - 06/01/2019 3:24 PM EST [facility] [address] [place] [address] Sharath Guevara MD Acute anxiety (Primary Dx) Discharge Disposition: Home or Self Care 09/22/2018 10:26 AM EDT - 09/22/2018 6:32 PM EDT [facility] [address] [place] [address] James Palafox MD Suicidal ideation (Primary Dx) Discharge Disposition: Discharged/Transferre d to a [facility] 09/09/2018 6:22 PM EDT - 09/10/2018 7:22 AM EDT [facility] [address] [place] [address] Aj Arita MD Suicidal ideations (Primary Dx) Discharge Disposition: [facility] 08/07/2018 5:10 AM EST - 08/07/2018 2:37 PM EST [facility] [address] [place] [address] Sharath Wheeler MD Francesca, Chip Barahona MD Homelessness (Primary Dx); Marijuana use; Depression with suicidal ideation Discharge Disposition: Left Against Medical Advice 11/02/2004 6:47 AM EDT - 11/02/2004 7:10 AM EDT Emergency [facility] Redd Rossi MD 10/31/2004 10:14 PM EDT - 10/31/2004 11:10 PM EDT Emergency [facility] Terrence Fung MD Allergies Active Allergy Reactions Criticality Noted Date Comments Codeine Rash 08/24/2017 Medications QUEtiapine (SEROQUEL) 100 mg Oral Tablet Take 3 Tabs by mouth nightly. 90 Tab 1 08/27/2019 Active QUEtiapine (SEROQUEL) 50 mg Oral Tablet Take 1 Tab by mouth 3 times daily. 90 Tab 1 08/27/2019 Active naproxen (NAPROSYN) 500 mg Oral Tablet Take 1 Tablet by mouth every 12 hours as needed for Pain for up to 10 doses. 10 Tablet 05/02/2024 Active Active Problems Problem Noted Date Diagnosed Date Medication monitoring encounter 03/27/2020 Cocaine abuse 03/23/2020 Smoking addiction 03/23/2020 Personality disorder, unspecified 03/23/2020 Contact with or exposure to tuberculosis 019 Disorder of teeth and supporting structures 05/25 Tobacco use disorder 06/04/2019 Marijuana dependence 06/04/2019 Panic attacks 06/04/2019 Psychophysiological insomnia 09/23/2018 Mood disorder 08/24/2017 Polysubstance dependence Resolved Problems Problem Noted Date Diagnosed Date Resolved Date Other specified condition influencing health 9 06/04/2019 Family History Medical History Relation Name Comments Cancer Maternal Aunt lung Cancer Maternal Grandfather bone Cancer Maternal Grandmother brain t umor Cancer Mother lung Relation Name Status Comments Maternal Aunt Maternal Grandfather Maternal Grandmother Mother 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 Smoking Status as of 12/02/2024 Tobacco Use Types Packs/Day Years Used Date Smoking Tobacco: Never Assessed Sex and Gender Information Value Date Recorded Sex Assigned at Not on file Legal Sex Male 7:02 AM EDT Gender Identity Not on file Sexual Orientation Not on file Last Filed Vital Signs Vital Sign Reading Time Taken Comments Blood Pressure 133/93 05/03/2024 9:03 PM EST Pulse 70 05/03/2024 9:03 PM EST Temperature 37.3 C (99.2 F) 05/03/2024 9:05 PM EST Respiratory Rate 18 05/03/2024 9:03 PM EST Oxygen Saturation 95% 05/03/2024 9:03 PM EST Inhaled Oxygen Concentration - - Weight 77.1 kg (170 lb) 05/02/2024 8:29 PM EST Height 182.9 cm (6') 05/02/2024 8:29 PM EST Body Mass Index 23.06 05/02/2024 8:29 PM EST Plan of Treatment Not on file Procedures Procedure Name Priority Date/Time Associated Diagnosis Comments ALCOHOL MEDICAL STAT 05/03/2024 9:27 PM EST CBC WITH DIFF STAT 05/03/2024 9:27 PM EST SALICYLATE LEVEL STAT 05/03/2024 9:27 PM EST ACETAMINOPHEN LEVEL STAT 05/03/2024 9 :27 PM EST COMPREHENSIVE METABOLIC PANEL STAT 05/03/2024 9:27 PM EST URINALYSIS REFLEX STAT 05/03/2024 9:1 8 PM EST UA W/REFLEX TO CULTURE STAT 9:18 PM EST EXTRA MARTIN URINE CX STAT 05/03/2024 9 :18 PM EST DRUG CONFIRMATION, CANNABINOIDS - URINE STAT 05/03/2024 9:14 PM EST FENTANYL SCREEN, URINE STAT 9:14 PM EST RAPID DRUGS OF ABUSE W/REFLEX TO CONFIRMATION, UR(COV/DBN/GRT) STAT 05/03/2024 9:[address] ABDOMEN PELVIS WO ORAL OR IV CONTRAST STAT 05/02/2024 9:06 PM EST SCANNED EKG 03/04/2020 5:02 PM EDT XR CHEST PA AND LATERAL EKTA 03/03/2020 6:00 PM EDT EXTRA LIGHT BLUE Routine 03/03/2020 5:30 PM EDT EXTRA TUBES PANEL Routine 03/03/2020 5:3 0 PM EDT TROPONIN-T HIGH SENSITIVITY BASELINE W/ REFLEX STAT 03/03/2020 5:30 PM EDT BASIC METABOLIC PANEL STAT 03/03/2020 5:30 PM EDT CBC STAT 03/03/2020 5:30 PM EDT EK EKG 12 LEAD STAT 03/03/2020 5:04 PM EDT SALINE LOCK IV STAT 03/03/2020 5:04 PM EDT EXTRA YELLOW URINE Routine 09/22/2018 12 :22 PM EDT URINALYSIS STAT 09/22/2018 12:22 PM EDT DRUGS OF ABUSE, SCREEN ONLY, URINE STAT 09/22/2018 12:22 PM EDT EXTRA MARTIN URINE CX Routine 09/22/2018 1 2:22 PM EDT EXTRA SPECIMENS (NON-BLOOD) Routine 09/22/2018 12:22 PM EDT EXTRA GOLD SST Routine 09/22/2018 10:58 AM EDT EXTRA LIGHT BLUE Routine 09/22/2018 10:5 8 AM EDT EXTRA TUBES PANEL Routine 09/22/2018 10: 58 AM EDT ACETAMINOPHEN LEVEL STAT 09/22/2018 1 0:58 AM EDT SALICYLATE LEVEL STAT 09/22/2018 10:5 8 AM EDT TSH REFLEX TO FT4 STAT 09/22/2018 10: 58 AM EDT CBC WITH DIFF STAT 09/22/2018 10:58 AM EDT BASIC METABOLIC PANEL STAT 09/22/2018 10:58 AM EDT ALCOHOL MEDICAL STAT 09/22/2018 10:58 AM EDT DRUGS OF ABUSE, SCREEN ONLY, URINE STAT 09/10/2018 5:17 AM EDT EXTRA MINT GREEN LI Routine 09/09/2018 7 :01 PM EDT EXTRA TUBES PANEL Routine 09/09/2018 7:0 1 PM EDT ALCOHOL MEDICAL STAT 09/09/2018 7:01 PM EDT SALICYLATE LEVEL STAT 09/09/2018 7:01 PM EDT ACETAMINOPHEN LEVEL STAT 09/09/2018 7 :01 PM EDT BASIC METABOLIC PANEL STAT 09/09/2018 7:01 PM EDT CBC WITH DIFF STAT 09/09/2018 7:01 PM EDT SCANNED EKG 08/07/2018 2:28 PM EST DRUGS OF ABUSE, SCREEN ONLY, URINE STAT 08/07/2018 5:57 AM EST URINALYSIS STAT 08/07/2018 5:57 AM EST ALCOHOL MEDICAL STAT 08/07/2018 5:51 AM EST SALICYLATE LEVEL STAT 08/07/2018 5:51 AM EST ACETAMINOPHEN LEVEL STAT 08/07/2018 5 :51 AM EST COMPREHENSIVE METABOLIC PANEL STAT 08/07/2018 5:51 AM EST CBC WITH DIFF STAT 08/07/2018 5:51 AM EST EXTRA MARTIN URINE CX Routine 08/07/2018 5 :51 AM EST EXTRA SPECIMENS (NON-BLOOD) Routine 08/07/2018 5:51 AM EST EK EKG 12 LEAD STAT 08/07/2018 5:35 AM EST HEPATITIS C ANTIBODY IGM + IGG Routine 08/24/2017 5:52 PM EST HEPATITIS B SURFACE ANTIBODY Routine 08/24/2017 5:52 PM EST HIV AG/AB Routine 08/24/2017 5:52 PM EST IP CONSULT TO SOCIAL WORK Routine 08/24/2017 5:41 PM EST DRUGS OF ABUSE, SCREEN ONLY, URINE STAT 08/24/2017 3:10 PM EST ALCOHOL MEDICAL STAT 08/24/2017 3:08 PM EST SALICYLATE LEVEL STAT 08/24/2017 3:08 PM EST ACETAMINOPHEN LEVEL STAT 08/24/2017 3 :08 PM EST BASIC METABOLIC PANEL STAT 08/24/2017 3:08 PM EST CBC WITH DIFF STAT 08/24/2017 3:[address] ANGIO FOR PULMONARY EMBOLUS Routine 09/19/2015 2:34 PM EDT XR CHEST-FRONTAL & LATERAL Routine 09/19/2015 11:35 AM EDT Results * (ABNORMAL) CBC WITH DIFF (05/03/2024 9:27 PM EST) Only the most recent of5 resultswithin the time period is included. WBC 8.4 3.7 - 10.3 x10(3)/mcL 05/03/2024 9:38 PM EST [facility] RBC 4.29(L) 4.60 - 6.10 x10(6)/mcL 05/03/2024 9:38 PM EST [facility] Hgb 13.6(L) 13.7 - 17.5 g/dL 05/03/2024 9:38 PM EST [facility] Hct 39.2(L) 40.0 - 51.0 % 05/03/2024 9:38 PM EST [facility] MCV 91.4 80.0 - 100.0 fL 05/03/2024 9:38 PM EST [facility] MCH 31.7 26.0 - 34.0 pg 05/03/2024 9:38 PM EST [facility] MCHC 34.7 30.7 - 35.5 g/dL 05/03/2024 9:38 PM EST [facility] RDW 12.3 <=14.9 % 05/03/2024 9:38 PM EST [facility] Platelet 206 155 - 369 x10(3)/mcL 05/03/2024 9:38 PM EST [facility] MPV 9.4 8.8 - 12.5 fL 05/03/2024 9:38 PM EST [facility] Neut Percent 63.5 % 05/03/2024 9:38 PM EST [facility] Comment:Neutrophils equals s egs plus bands Imm Gran% 0.2 % 05/03/2024 9:38 PM EST [facility] Comment:Automated count of m etamyelocytes, myelocytes and promyelocytes. Lymph Percent 24.8 % 05/03/2024 9:38 PM EST [facility] [place] Percent 8.9 % 05/03/2024 9:38 PM EST [facility] Eos Percent 1.8 % 05/03/2024 9:38 PM EST [facility] Baso Percent 0.8 % 05/03/2024 9:38 PM EST [facility] Neut # 5.3 1.6 - 6.1 x10(3)/mcL 05/03/2024 9:38 PM EST [facility] Comment:Neutrophils equals s egs plus bands IMMGRAN# 0.0 0.0 - 0.1 x10(3)/mcL 05/03/2024 9:38 PM EST [facility] Comment:Automated count of m etamyelocytes, myelocytes and promyelocytes. An absolute IG <0.1 is reported as 0.0. Lymph # 2.1 1.2 - 3.9 x10(3)/mcL 05/03/2024 9:38 PM EST [facility] [place] # 0.8 0.3 - 0.9 x10(3)/mcL 05/03/2024 9:38 PM EST [facility] Eos# 0.2 0.0 - 0.5 x10(3)/mcL 05/03/2024 9:38 PM EST [facility] Baso # 0.1 0.0 - 0.1 x10(3)/mcL 05/03/2024 9:38 PM EST [facility] Blood VENOUS BLOOD / Unknown Venipuncture / Unknown 05/03/2024 9:27 PM EST 05/03/2024 9:35 PM EST us Eh Taveras PA-C HEMATOLOGY ORDERABLES Fi nal Result [facility] [address] [phone] * ALCOHOL MEDICAL (05/03/2024 9:27 PM EST) Only the most recent of5 resultswithin the time period is included. Alcohol Medical <10 <=10 mg/dL 9:57 PM EST [facility] Comment: 50-100 mg/dL - Flushing, slowing of reflexes, impaired visual acuity > 100 mg/dL - Depression of AGING BOX HAND > 400 mg/dL - Fatalities reported Blood VENOUS BLOOD / Unknown Venipuncture / Unknown 05/03/2024 9:27 PM EST 05/03/2024 9:35 PM EST [facility] [employer] NC-C CHEMISTRY ORDERABLES Fin al Result Performing Organization Address [facility] de Phone Number [facility] [address] [phone] * (ABNORMAL) ACETAMINOPHEN LEVEL (05/03/2024 9:27 PM EST) Only the most recent of5 resultswithin the time period is included. Pathologist [facility] Acetaminophen Lvl <5.0(L) 10.0 - 30.0 mcg/mL 05/03/2024 9:57 PM EST [facility] Blood VENOUS BLOOD / Unknown Venipuncture / Unknown 05/03/2024 9:27 PM EST 05/03/2024 9:35 PM EST Narrative [facility] - 05/03/2024 9:57 PM EST Supratherapeutic: > 35 mcg/ml Toxic: > 200 mcg/ml (4h post ingestion) > 100 mcg/ml (8h post ingestion) > 50 mcg/ml (12h post ingestion) [facility] [employer] CHEMISTRY ORDERABLES Fin al Result Performing Organization Address [facility] de Phone Number [facility] [address] [phone] * SALICYLATE LEVEL (05/03/2024 9:27 PM EST) Only the most recent of5 resultswithin the time period is included. Salicylate <0.5 <=30.0 mg/dL 05/03/2024 9:57 PM EST [facility] Comment: Therapeutic range for anti-pyretic/analgesic conditions 3-10 mg/dL Therapeutic range for anti-inflammatory/rheumatic fever conditions 15-30 mg/dL Toxic range >30 mg/dL Blood VENOUS BLOOD / Unknown Venipuncture / Unknown 05/03/2024 9:27 PM EST 05/03/2024 9:35 PM EST Eh Taveras PA-C CHEMISTRY ORDERABLES Fin al Result [facility] [address] [phone] * (ABNORMAL) COMPREHENSIVE METABOLIC PANEL (05/03/2024 9:27 PM EST) Only the most recent of2 resultswithin the time period is included. Sodium 143 136 - 145 mmol/L 05/03/2024 9:57 PM EST [facility] Potassium 3.7 3.5 - 5.0 mmol/L 05/03/2024 9:57 PM EST [facility] Chloride 104 98 - 107 mmol/L 05/03/2024 9:57 PM EST [facility] Total CO2 28 22 - 29 mmol/L 05/03/2024 9:57 PM EST [facility] Anion Gap 11 7 - 16 mmol/L 05/03/2024 9:57 PM EST [facility] Calcium 9.5 8.6 - 10.4 mg/dL 05/03/2024 9:57 PM EST [facility] Glucose Lvl 90 70 - 99 mg/dL 05/03/2024 9:57 PM EST [facility] BUN 16 6 - 20 mg/dL 05/03/2024 9:57 PM EST [facility] Creatinine 1.18 0.67 - 1.30 mg/dL 05/03/2024 9:57 PM EST [facility] Albumin 4.3 3.5 - 5.2 gm/dL 05/03/2024 9:57 PM EST [facility] Total Protein 6.8 6.4 - 8.3 gm/dL 05/03/2024 9:57 PM EST [facility] Bili Total 0.5 0.2 - 1.4 mg/dL 05/03/2024 9:57 PM EST [facility] ALT 17 <=41 U/L 05/03/2024 9:57 PM EST [facility] AST 51(H) <=40 U/L 05/03/2024 9:57 PM EST [facility] Alk Phos 65 40 - 129 U/L 05/03/2024 9:57 PM EST [facility] eGFR (CKD-EPIcr 2020) 71 >=60 mL/min/1.7 3 m2 05/03/2024 9:57 PM EST [facility] Comment:Estimated GFR was ca lculated using the CKD-EPIcr (2020) equation refit without race. The equation is recommended by the [employer] - [place] [employer] of Nephrology Task Force. Blood VENOUS BLOOD / Unknown Venipuncture / Unknown 05/03/2024 9:27 PM EST 05/03/2024 9:35 PM EST Eh Taveras PA-C CHEMISTRY ORDERABLES Fin al Result [facility] [address] [phone] * (ABNORMAL) URINALYSIS REFLEX (05/03/2024 9:18 PM EST) UA Color Yellow 05/03/2024 9:23 PM EST [facility] UA Appear Clear Clear 05/03/2024 9:23 PM EST [facility] UA Glucose Negative Negative mg/dL 05/03/2024 9:23 PM EST [facility] UA Ketones Negative Negative mg/dL 05/03/2024 9:23 PM EST [facility] UA Blood Negative Negative 05/03/2024 9:23 PM EST [facility] UA pH 6.0 5.0 - 8.0 pH 05/03/2024 9:23 PM EST [facility] UA Protein Negative Negative mg/dL 05/03/2024 9:23 PM EST [facility] UA Urobilinogen 2.0(A) <=1 mg/dL 9:23 PM EST [facility] UA Bili Negative Negative 05/03/2024 9:23 PM EST [facility] UA Nitrite Negative Negative 05/03/2024 9:23 PM EST [facility] UA Leuk Est Negative Negative 05/03/2024 9:23 PM EST [facility] UA Spec Grav 1.025 1.001 - 1.035 no units 05/03/2024 9:23 PM EST [facility] Comment:Reference range demarcus d for random specimens only. Urine URINE SPECIMEN COLLECTION, CLEAN CATCH / Unknown 05/03/2024 9:18 PM EST 05/03/2024 9:21 PM EST Eh Taveras PA-C URINE ORDERABLES Final R esult Performing Organization Address City/[facility] Co de Phone Number [facility] [address] [phone] * EXTRA MARTIN URINE CX (05/03/2024 9:18 PM EST) Only the most recent of3 resultswithin the time period is included. Urine URINE SPECIMEN COLLECTION, CLEAN CATCH / Unknown 05/03/2024 9:18 PM EST 05/03/2024 9:21 PM EST Eh FITZGERALD-C MICROBIOLOGY - GENERAL O RDERABLES Final Result Performing Organization Address [facility] Co de Phone Number [facility] [address] [phone] * (ABNORMAL) RAPID DRUGS OF ABUSE W/REFLEX TO CONFIRMATION, UR(COV/DBN/GRT) (05/03/2024 9:14 PM EST) Cannabinoid Rapid Presumptive Pos(A) Absent 05/03/2024 9:35 PM EST [facility] Cocaine Rapid Absent Absent 05/03/2024 9:35 PM EST [facility] Methamphetamine Rapid Absent Absent 05/03/2024 9:35 PM EST [facility] Opiate Rapid Absent Absent 05/03/2024 9:35 PM EST [facility] Amphetamine Rapid Absent Absent 9:35 PM EST [facility] Benzodiazepines Rapid Absent Absent 05/03/2024 9:35 PM EST [facility] Tricyclic Rapid Presumptive Pos(A) Absent 05/03/2024 9:35 PM EST [facility] Methadone Rapid Absent Absent 4 9:35 PM EST [facility] Barbiturate Rapid Absent Absent 9:35 PM EST [facility] Oxycodone Rapid Absent Absent 4 9:35 PM EST [facility] BUPRENORPHINE RAPID Absent Absent 05/03/2024 9:35 PM EST [facility] Urine URINE SPECIMEN COLLECTION / Unknown 05/03/2024 9:14 PM EST 05/03/2024 9:21 PM EST [facility] - 05/03/2024 9:35 PM EST These drug classes have been qualitatively screened by immunoassay and are for medical purposes only. Results should not be used for non-medical purposes. Results reported as presumptive positive will be sent for confirmation. Due to possible factors, such as, dilute/adulterated urine, concentration of drug/metabolite being below the cut-off, or antibody specificity of test reagent, a negative result does not rule out drug use. These results are only valid for urine specimens. Any contamination with vaginal pool/amniotic fluid could cause erroneous results. Positive TCA tests will not automatically be sent for confirmation. If needed, call the lab to have these added on within 4 days of collection us Eh FITZGERALD-Tae URINE ORDERABLES Final R esult [facility] [address] [place] [address], [facility] [[email or web address]] [phone] * (ABNORMAL) DRUG CONFIRMATION, CANNABINOIDS - URINE (05/03/2024 9:14 PM EST) THC <10 Cutoff 10 ng/mL ng/mL 05/05/2024 7:54 AM EST [facility] THC Glucuronide >200(H) Cutoff 10 ng/mL ng/mL 05/05/2024 7:54 AM EST [facility] Urine URINE SPECIMEN COLLECTION / Unknown 05/03/2024 9:14 PM EST 05/03/2024 9:21 PM EST Eh Taveras PA-C URINE ORDERABLES Final R esult Performing Organization Address City/[facility]/ZIP Co de Phone Number [facility] [address] [facility] , [place] [address] * FENTANYL SCREEN, URINE (05/03/2024 9:14 PM EST) Fentanyl Absent Cutoff 5 ng/mL 05/04/2024 12:54 AM EST [facility] Urine Creatinine 189.0 mg/dL 05/04/20 24 12:54 AM EST [facility] Comment: Greater than 20: Consistent with valid sample Greater than 2 but less than 20: Possible dilution Less than 2: Questionable valid sample Urine URINE SPECIMEN COLLECTION / Unknown 05/03/2024 9:14 PM EST 05/03/2024 9:21 PM EST Narrative [facility] - 05/04/2024 12:54 AM EST These drug classes have been qualitatively screened by immunoassay and are for medical purposes only. Results reported as presumptive positive have not been confirmed. If results don t reflect the clinical picture, the prescribed medication, or the discussion with the patient, confirmation testing is recommended on the ORIGINAL urine. All urine specimens for drug testing are held for 7 days. If confirmation testing is desired, call the Lab [facility]. Due to possible factors, such as, dilute/adulterated urine, concentration of drug/metabolite being below the cut-off, or antibody specificity of test reagent, a negative result does not rule out drug use. These results are only valid for urine specimens. Any contamination with vaginal pool/amniotic fluid could cause erroneous results. Eh Taveras PA-C URINE ORDERABLES Final R esult [facility] [address] [place] [address] , [place] [address] * CT ABDOMEN PELVIS WO ORAL OR IV CONTRAST (05/02/2024 9:06 PM EST) Anatomical Region Laterality Modality Abdomen, Pelvis Computed Tomogra phy 05/02/2024 9:06 PM EST Impressions 05/02/2024 9:11 PM EST No acute findings in the abdomen/pelvis. - Note: Radiology results need to be interpreted within a comprehensive clinical context. If you have questions about the radiology report, please contact the office of the ordering clinician. Narrative 05/02/2024 9:[address] ABDOMEN AND PELVIS WITHOUT IV OR ORAL CONTRAST, 05/02/2024 9:06 PM CLINICAL HISTORY: -Left flank pain. COMPARISON: None. PROCEDURE COMMENTS: Multidetector CT examination of the abdomen and pelvis without IV or oral contrast per protocol. Multiplanar reconstructions. Dose 1 : CT DLP Total : 510.18 mGycm DLP Spiral Max : 506.07 mGycm Maximum CTDI Vol : 10.53 mGy FINDINGS: The lung bases are clear. The liver, gallbladder, pancreas, spleen and adrenals are unremarkable. Small hypodensity in the right kidney not well characterized although presumably cysts. No renal stone or obstruction. No definite ureteral stone. The bladder is moderately distended, grossly normal. The small and large bowel are normal in caliber without obstruction or wall thickening. Multiple colonic diverticula. Appendix is normal lower lower quadrant. No free fluid or suspicious lymphadenopathy. Ectasia of the infrarenal aorta measuring approximately 3 cm. No suspicious osseous lesion. Procedure Note North Alvarado MD - 05/02/2024 CT ABDOMEN AND PELVIS WITHOUT IV OR ORAL CONTRAST, 05/02/2024 9:06 PM CLINICAL HISTORY: -Left flank pain. COMPARISON: None. PROCEDURE COMMENTS: Multidetector CT examination of the abdomen andpelvis without IV or oral contrast per protocol. Multiplanar reconstructions. Dose 1 : CT DLP Total : 510.18 mGycm DLP Spiral Max : 506.07 mGycm Maximum CTDI Vol : 10.53 mGy FINDINGS: The lung bases are clear. The liver, gallbladder, pancreas, spleen and adrenals are unremarkable. Small hypodensity in the right kidney not well characterized althoughpresumably cysts. No renal stone or obstruction. No definite ureteral stone. Thebladder is moderately distended, grossly normal. The small and large bowel are normal in caliber without obstruction orwall thickening. Multiple colonic diverticula. Appendix is normal lower lower quadrant. No free fluid or suspicious lymphadenopathy. Ectasia of the infrarenal aorta measuring approximately 3 cm. No suspicious osseous lesion. IMPRESSION: No acute findings in the abdomen/pelvis. - Note: Radiology results need to be interpreted within a comprehensiveclinical context. If you have questions about the radiology report, please contactthe office of the ordering clinician. us Arthur Calderón MD IMG CT ORDERABLES Final Res ult * SCANNED EKG (03/04/2020 5:02 PM EDT) Only the most recent of2 resultswithin the time period is included. Anatomical Region Laterality Modality Other 03/04/2020 5:02 PM EDT us Unknown Unknown IMG ECG ORDERABLES Final Result * XR CHEST PA AND LATERAL (03/03/2020 6:00 PM EDT) Anatomical Region Laterality Modality Chest Radiographic Windy ging 03/03/2020 6:00 PM EDT Impressions 03/03/2020 6:14 PM EDT Lungs are mildly hyperinflated. No consolidation. - Narrative 03/03/2020 6:14 PM EDT PA AND LATERAL CHEST X-RAY, 03/03/2020 6:00 PM CLINICAL HISTORY: -CHEST PAIN COMPARISON: None. PROCEDURE COMMENTS: Frontal and lateral views of the chest. FINDINGS: Lungs are mildly hyperinflated. No dense consolidation, effusion, pneumothorax. Heart size within normal limits. Granuloma in the right base. Procedure Note Fermin Huber MD - 03/03/2020 PA AND LATERAL CHEST X-RAY, 03/03/2020 6:00 PM CLINICAL HISTORY: -CHEST PAIN COMPARISON: None. PROCEDURE COMMENTS: Frontal and lateral views of the chest. FINDINGS: Lungs are mildly hyperinflated. No dense consolidation,effusion, pneumothorax. Heart size within normal limits. Granuloma in the rightbase. IMPRESSION: Lungs are mildly hyperinflated. No consolidation. - Matilde Tinoco MD IMG DIAGNOSTIC IMAGING ORDERABLE S Final Result * TROPONIN-T HIGH SENSITIVITY BASELINE W/ REFLEX (03/03/2020 5:30 PM EDT) [id number] 9 <22 ng/L 03/03/2020 5:53 PM EDT [facility] Comment:See the website BondandDeni for rule out ID care pathway, conditions other than AMI that can cause elevated hs cTnT, and comparison of values from the 4th and 5th generation Paul tests. https://askmayoexpert.[email or web address]/topic/clinical-answers/gnt-77124064/[email or web address] Blood VENOUS BLOOD / Unknown Venipuncture / Unknown 03/03/2020 5:30 PM EDT 03/03/2020 5:33 PM EDT Narrative [facility] - 03/03/2020 5:53 PM EDT Ingestion of sommer doses of biotin (>5 mg/day) taken within 8 hours of drawing blood sample can interfere with this immunoassay test. Matilde Tinoco MD CHEMISTRY ORDERABLES Final Resul t [facility] [address] [place] [address] * EXTRA LIGHT BLUE (03/03/2020 5:30 PM EDT) Only the most recent of2 resultswithin the time period is included. Blood VENOUS BLOOD / Unknown Venipuncture / Unknown 03/03/2020 5:30 PM EDT 03/03/2020 5:34 PM EDT us Matilde Tinoco MD HEMATOLOGY ORDERABLES Final Resu lt [facility] [address] [place] [address] * CBC (03/03/2020 5:30 PM EDT) [facility] WBC 7.0 4.0 - 11.0 x10(3)/mcL 03/03/2020 5:37 PM EDT [facility] RBC 4.55 4.30 - 5.81 x10(6)/mcL 03/03/2020 5:37 PM EDT [facility] Hgb 14.0 13.5 - 17.1 g/dL 03/03/2020 5:37 PM EDT [facility] Hct 41.2 38.9 - 51.6 % 03/03/2020 5:37 PM EDT [facility] MCV 90.5 82.5 - 99.8 fL 03/03/2020 5:37 PM EDT [facility] MCH 30.8 27.0 - 34.3 pg 03/03/2020 5:37 PM EDT [facility] MCHC 34.0 32.1 - 35.3 g/dL 03/03/2020 5:37 PM EDT [facility] RDW 13.2 11.5 - 15.0 % 03/03/2020 5:37 PM EDT [facility] Platelet 198 144 - 423 x10(3)/mcL 03/03/2020 5:37 PM EDT [facility] MPV 7.6 6.8 - 10.8 fL 03/03/2020 5:37 PM EDT [facility] Blood VENOUS BLOOD / Unknown Venipuncture / Unknown 03/03/2020 5:30 PM EDT 03/03/2020 5:33 PM EDT Matilde Tinoco MD HEMATOLOGY ORDERABLES Final Resu lt [facility] [address] [place] [address] * (ABNORMAL) BASIC METABOLIC PANEL (03/03/2020 5:30 PM EDT) Only the most recent of4 resultswithin the time period is included. Sodium 136 136 - 145 mmol/L 03/03/2020 5:53 PM EDT [facility] Potassium 4.0 3.5 - 5.0 mmol/L 03/03/2020 5:53 PM EDT [facility] Chloride 103 98 - 107 mmol/L 03/03/2020 5:53 PM EDT [facility] Total CO2 23 22 - 29 mmol/L 03/03/2020 5:53 PM EDT [facility] Anion Gap 10 7 - 16 mmol/L 03/03/2020 5:53 PM EDT [facility] Calcium 9.2 8.6 - 10.4 mg/dL 03/03/2020 5:53 PM EDT [facility] Glucose Lvl 129(H) 74 - 100 mg/dL 03/03/2020 5:53 PM EDT [facility] BUN 18 6 - 20 mg/dL 03/03/2020 5:53 PM EDT [facility] Creatinine 1.31(H) 0.67 - 1.30 mg/dL 03/03/2020 5:53 PM EDT [facility] GFR Afr Am 70 >=60 mL/min/1.7 3 m2 03/03/2020 5:53 PM EDT [facility] GFR Non Afr Am 61 >=60 mL/min/1.7 3 m2 03/03/2020 5:53 PM EDT [facility] Comment: This estimated GFR was calculated using CKD-EPI equation which is modified based on ethnicity for Non Americans and Americans. Both results are reported since it is not always possible to determine the patient's ethnicity. This equation should only be used for individuals 18 and older. It has not been validated for use with the elderly (>70 years), women, or in some racial or ethnic subgroups, such as Hispanics. The equation will be less accurate in people with differences in nutritional status or muscle mass. Blood VENOUS BLOOD / Unknown Venipuncture / Unknown 03/03/2020 5:30 PM EDT 03/03/2020 5:33 PM EDT us Matilde Tinoco MD CHEMISTRY ORDERABLES Final Resul t [facility] [address] [place] [address] * EK EKG 12 LEAD (03/03/2020 5:04 PM EDT) Only the most recent of2 resultswithin the time period is included. Anatomical Region Laterality Modality Electrocardiogra phy 03/03/2020 5:18 PM EDT Impressions 03/04/2020 5:[address] [facility] Test Date: 2020-03-03 Pat Name: 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 Test Date: 2020-03-03 Pat Name: [facility] Department: DEPID Room: Gender: Male Pharmacy Graduate Intern: : 1965 Requested By: [facility] Order Number: [id number] Reading MD: Александр Thomas MD Measurements Intervals [place] Rate: 79 P: 67 CO: 150 QRS: 24 QRSD: 93 T: 32 QT: 370 QTc: 424 Interpretive Statements SINUS RHYTHM Electronically Signed On 03-04-2020 17:24:12 EDT by Александр Thomas MD us Matilde Tinoco MD IMG ECG ORDERABLES Final Result * EXTRA YELLOW URINE (09/22/2018 12:22 PM EDT) Urine Collection / Unknown 09/22/2018 12:22 PM EDT 09/22/2018 12:31 PM EDT us James Palafox MD URINE ORDERABLES Final Re sult [facility] [address] [place] [id number] * (ABNORMAL) DRUGS OF ABUSE, SCREEN ONLY, URINE (09/22/2018 12:22 PM EDT) Only the most recent of4 resultswithin the time period is included. 6 AM (Heroin) Absent Cutoff 10 ng/mL 09/22/2018 12:53 PM EDT [facility] Amphetamines Absent Cutoff 500 ng/mL 09/22/2018 12:53 PM EDT [facility] Barbiturates Absent Cutoff 200 ng/mL 09/22/2018 12:53 PM EDT [facility] Benzodiazepines Absent Cutoff 200 ng/mL 09/22/2018 12:53 PM EDT [facility] Buprenorphine Absent Cutoff 5 ng/mL 09/22/2018 12:53 PM EDT [facility] Cannabinoid Metabolite Presumptive Pos(A) Cutoff 50 ng/mL 09/22/2018 12:53 PM EDT [facility] Cocaine Metabolite Absent Cutoff 150 ng/mL 09/22/2018 12:53 PM EDT [facility] Methadone and Metabolite Absent Cutoff 300 ng/mL 09/22/2018 12:53 PM EDT [facility] Opiate Absent Cutoff 300 ng/mL 09/22/2018 12:53 PM EDT [facility] Oxycodone Lvl Absent Cutoff 100 ng/mL 09/22/2018 12:53 PM EDT [facility] Phencyclidine Absent Cutoff 25 ng/mL 09/22/2018 12:53 PM EDT [facility] Creatinine Ur >25.0 mg/dL 09/22/2018 12:53 PM EDT [facility] Comment: Greater than 20: Consistent with valid sample Greater than 2 but less than 20: Possible dilution Less than 2: Questionable valid sample Urine STRUCTURE OF URINARY TRACT PROPER / Unknown Collection / Unknown 09/22/2018 12:22 PM EDT 09/22/2018 12:30 PM EDT Narrative [facility] - 09/22/2018 12:53 PM EDT These drug classes have been qualitatively screened by immunoassay and are for medical purposes only. Results reported as presumptive positive have not been confirmed. If results don t reflect the clinical picture, the prescribed medication, or the discussion with the patient, confirmation testing is recommended on the ORIGINAL urine. All urine specimens for drug testing are held for 7 days. If confirmation testing is desired, call the Lab [facility]. Due to possible factors, such as, dilute/adulterated urine, concentration of drug/metabolite being below the cut-off, or antibody specificity of test reagent, a negative result does not rule out drug use. These results are only valid for urine specimens. Any contamination with vaginal pool/amniotic fluid could cause erroneous results. us James Palafox MD URINE ORDERABLES Final Re sult [facility] [address] [place], [place] [id number] * URINALYSIS (09/22/2018 12:22 PM EDT) Only the most recent of2 resultswithin the time period is included. UA Color Yellow 09/22/2018 12:46 PM EDT [facility] UA Appear Clear Clear 09/22/2018 12:46 PM EDT [facility] UA Glucose Negative Negative mg/dL 09/22/2018 12:46 PM EDT [facility] UA Ketones Negative Negative mg/dL 09/22/2018 12:46 PM EDT [facility] UA Blood Negative Negative 09/22/2018 12:46 PM EDT [facility] UA pH 5.5 5.0 - 8.0 pH 09/22/2018 12:46 PM EDT [facility] UA Protein Negative Negative mg/dL 09/22/2018 12:46 PM EDT [facility] UA Urobilinogen 0.2 <=1 mg/dL 9 12:46 PM EDT [facility] UA Bili Negative Negative 09/22/2018 12:46 PM EDT [facility] UA Nitrite Negative Negative 09/22/2018 12:46 PM EDT [facility] UA Leuk Est Negative Negative 09/22/2018 12:46 PM EDT [facility] UA Spec Grav >=1.030 1.001 - 1.035 no units 09/22/2018 12:46 PM EDT [facility] Comment: Reference range valid for random specimens only. Urine URINE SPECIMEN COLLECTION, CLEAN CATCH / Unknown Collection / Unknown 09/22/2018 12:22 PM EDT 09/22/2018 12:30 PM EDT us James Palafox MD URINE ORDERABLES Final Re sult Performing Organization Address [facility] Co de Phone Number [facility] [address] [place] [address] * EXTRA GOLD SST (09/22/2018 10:58 AM EDT) Blood VENOUS BLOOD / Unknown Venipuncture / Unknown 09/22/2018 10:58 AM EDT 09/22/2018 11:12 AM EDT us James Palafox MD CHEMISTRY ORDERABLES Francie l Result Performing Organization Address [facility] de Phone Number [facility] [address] [place] [address] * TSH REFLEX (09/22/2018 10:58 AM EDT) TSH Reflex 3.040 0.270 - 4.200 mcIU/mL 09/22/2018 4:54 PM EDT [facility] Blood VENOUS BLOOD / Unknown Venipuncture / Unknown 09/22/2018 10:58 AM EDT 09/22/2018 11:09 AM EDT Narrative [facility] [employer] - 09/22/2018 4:54 PM EDT Ingestion of sommer doses of biotin (>5 mg/day) taken within 8 hours of drawing blood sample can interfere with this immunoassay test. us James Palafox MD CHEMISTRY ORDERABLES Francie l Result Performing Organization Address [facility] Co de Phone Number [employer] [address] [place] [address] , [address] [place], [place] [id number] * EXTRA MINT GREEN LI (09/09/2018 7:01 PM EDT) Blood VENOUS BLOOD / Unknown Venipuncture / Unknown 09/09/2018 7:01 PM EDT 09/09/2018 7:22 PM EDT us Aj Arita MD CHEMISTRY ORDERABLES Final Resul t Performing Organization Address City/[facility] Co de Phone Number [facility] [address] [place] [address] * HIV AG/AB (08/24/2017 5:52 PM EST) Pathologist [facility] HIV Ag/AB Non-Reacti ve Non-Reactive, See Footnote 08/25/2017 12:33 PM EST [facility] Blood VENOUS BLOOD / Unknown Venipuncture / Unknown 08/24/2017 5:52 PM EST 08/24/2017 5:52 PM EST Rosendo Hampton MD IMMUNOLOGY ORDERABLES Final Resu lt Performing Organization Address City/[facility] Co de Phone Number [facility] [address] [place] [address] * HEPATITIS C ANTIBODY IGM + IGG (08/24/2017 5:52 PM EST) Pathologist [facility] Hep C Ab Negative Negative 08/25/2017 12:32 PM EST [facility] Blood VENOUS BLOOD / Unknown Venipuncture / Unknown 08/24/2017 5:52 PM EST 08/24/2017 5:52 PM EST Rosendo Hampton MD IMMUNOLOGY ORDERABLES Final Resu lt Performing Organization Address [facility] [place] [place] [address] * HEPATITIS B SURFACE ANTIBODY (08/24/2017 5:52 PM EST) Pathologist [facility] Hep Bs Ab <3.08 mcIU/mL 08/25/2017 12:33 PM EST [facility] Comment: < 8.00 mIU/mL - NON REACTIVE (Not immune to HBV infection) 8.0 - 11.99 mIU/mL - GRAYZONE (Immune status should be further assessed by considering other factors such as clinical status, follow up testing, associated risk factors, and the use of additional diagnostic information.) >= 12.00 mIU/mL - REACTIVE (Immune to HBV infection.) Blood VENOUS BLOOD / Unknown Venipuncture / Unknown 08/24/2017 5:52 PM EST 08/24/2017 5:52 PM EST us Rosendo Hampton MD IMMUNOLOGY [place] [address] * CT ANGIO FOR PULMONARY EMBOLUS (09/19/2015 2:34 PM EDT) Anatomical Region Laterality Modality Other 09/19/2015 2:34 PM EDT Impressions 09/20/2015 12:37 PM EDT 1. NO PULMONARY EMBOLI DETECTED. 2. BIBASILAR ATELECTASIS OR FIBROTIC CHANGE. Reported and released by Narrative 09/20/2015 12:37 PM EDT [employer] Age: 51 Acct: [id number] EXAMS: [id number] - CTA THORAX PULMONARY EMBOLUS HISTORY/INDICATIONS: SHORT OF BREATH, WEAKNESS, AND HISTORY OF PULMONARY EMBOLUS. 30 PACK YEAR HISTORY OF TOBACCO ABUSE. COMPARISON: ACCOMPANYING CHEST X-RAY. Thoracic CTA was performed with helical scanning during bolus administration of 100 cc. of Isovue 370. Multi-planar and 3-D MIP reconstructions were performed at a dedicated work station. FINDINGS: Pulmonary arteries: Well opacified and normal without pulmonary emboli. Aorta: Normal caliber. No aneurysm or intimal dissection. Lizbeth and Mediastinum: No pathologic adenopathy or masses. A few small normal size hilar mediastinal lymph nodes are observed. Lungs and pleural spaces: Strandy densities in both lower lobes posteriorly at the lung bases consistent with dependent or subsegmental atelectasis or fibrotic scarring. Some calcified granulomata are present in the anteromedial left upper lobe and in the central right lower lobe. Upper abdomen: Partially visualized right renal cyst with no other abnormalities. There appears to be a small hiatal hernia. Some healed right rib fractures are observed. Reported By: Marly Culver Signed By: Marly Culver Procedure Note Diogenes Atkinson MD - 03/26/2021 [facility] Age: 51 Acct: [id number] EXAMS: [id number] - CTA THORAX PULMONARY EMBOLUS HISTORY/INDICATIONS: SHORT OF BREATH, WEAKNESS, AND HISTORY OFPULMONARY EMBOLUS. 30 PACK YEAR HISTORY OF TOBACCO ABUSE. COMPARISON: ACCOMPANYING CHEST X-RAY. Thoracic CTA was performed with helical scanning during bolus administration of 100 cc. of Isovue 370. Multi-planar and 3-D MIP reconstructions were performed at a dedicated work station. FINDINGS: Pulmonary arteries: Well opacified and normal without pulmonary emboli. Aorta: Normal caliber. No aneurysm or intimal dissection. Lizbeth and Mediastinum: No pathologic adenopathy or masses. A few small normal size hilar mediastinal lymph nodes are observed. Lungs and pleural spaces: Strandy densities in both lower lobes posteriorly at the lung bases consistent with dependent or subsegmental atelectasis or fibrotic scarring. Some calcified granulomata are present in the anteromedial left upper lobe and in the central right lower lobe. Upper abdomen: Partially visualized right renal cyst with no other abnormalities. There appears to be a small hiatal hernia. Some healed right rib fractures are observed. Reported By: Marly Culver Signed By: Marly Culver IMPRESSION: 1. NO PULMONARY EMBOLI DETECTED. 2. BIBASILAR ATELECTASIS OR FIBROTIC CHANGE. Reported and released by Rxe Murry NP IMG DBN MEDI RAD HISTORICAL Final Result * XR CHEST-FRONTAL & LATERAL (09/19/2015 11:35 AM EDT) Anatomical Region Laterality Modality Other 09/19/2015 11:3 5 AM EDT Impressions 09/20/2015 9:59 AM EDT 1. MID STRANDY DENSITIES AT THE POSTERIOR LUNG BASES ARE BETTER EVALUATED ON SUBSEQUENT CT SCANNING BUT LIKELY REPRESENT ATELECTASIS OR FIBROSIS. 2. NO DENSE ALVEOLAR INFILTRATES OR OTHER ACUTE CARDIOPULMONARY DISEASE. Reported and released by Narrative 09/20/2015 9:59 AM EDT [facility] Age: 51 Acct: [id number] EXAMS: [id number] - CHEST-FRONTAL HISTORY/INDICATIONS: COUGH, SHORT OF BREATH, WEAKNESS, AND HEADACHE. CORRELATION IS MADE WITH SUBSEQUENT CT SCAN. FINDINGS: Mild strandy parenchymal changes posteriorly at the lung bases are better seen on subsequent CT scanning. The calcified granulomata in the right and left lungs are also better evaluated with CT scanning. No other dense infiltrates, large effusions, or pulmonary edema. The heart size is within normal limits. Nonacute right rib fractures are noted. The chest does have an emphysematous configuration consistent with air-trapping from COPD. Reported By: Marly Culver Signed By: Marly Culver Procedure Note [facility] Atkinson [facility] Age[facility] 51 Acct: [id number] EXAMS: [id number] - CHEST-FRONTAL HISTORY/INDICATIONS: COUGH, SHORT OF BREATH, WEAKNESS, AND HEADACHE. CORRELATION IS MADE WITH SUBSEQUENT CT SCAN. FINDINGS: Mild strandy parenchymal changes posteriorly at the lung bases arebetter seen on subsequent CT scanning. The calcified granulomata in the right and left lungs are also better evaluated with CT scanning. No otherdense infiltrates, large effusions, or pulmonary edema. The heart size is within normal limits. Nonacute right rib fractures are noted. Thechest does have an emphysematous configuration consistent with air-trappingfrom COPD. Reported By: Marly Culver Signed By: Marly Culver IMPRESSION: 1. MID STRANDY DENSITIES AT THE POSTERIOR LUNG BASES ARE BETTER EVALUATED ON SUBSEQUENT CT SCANNING BUT LIKELY REPRESENT ATELECTASIS OR FIBROSIS. 2. NO DENSE ALVEOLAR INFILTRATES OR OTHER ACUTE CARDIOPULMONARYDISEASE. Reported and released by Rex Murry NP IMG DBN MEDI RAD HISTORICAL Final Result Visit Diagnoses Diagnosis Start Date Homelessness Lack of housing 08/07/2018 Marijuana use Cannabis abuse, unspecified 08/07/2018 Depression with suicidal ideation 08/07/2018 Suicidal ideations Suicidal ideation 09/09/2018 Suicidal ideation 09/22/2018 Acute anxiety Anxiety state, unspecified 06/01/2019 Mood disorder Unspecified episodic mood disorder 06/04/2019 Psychophysiological insomnia Persistent disorder of initiating or maintaining sleep 06/04/2019 Panic attacks Panic disorder without agoraphobia 06/04/2019 Screening for colon cancer Special screening for malignant neoplasms, colon 02/13/2020 Screening for cancer of the rectum Screening for malignant neoplasm of the rectum 02/13/2020 Chest wall pain Painful respiration 03/03/2020 Spasm of muscle 03/03/2020 Screening for colon cancer Special screening for malignant neoplasms, colon 03/31/2021 Screening for cancer of the rectum Screening for malignant neoplasm of the rectum 03/31/2021 Other chronic pain [G89.29] Other chronic pain 04/25/2024 Homeless [Z59.00] Lack of housing 04/25/2024 Benign neoplasm of kidney, unspecified laterality [D30.00] 04/25/2024 Polysubstance abuse (HCC) [F19.10] Other, mixed, or unspecified nondependent drug abuse, unspecified 04/25/2024 Neuropathy [G62.9] Mononeuritis of unspecified site 04/25/2024 Medical clearance for psychiatric admission [Z00.8] 04/25/2024 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, 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, secondary 04/28/2024 Homelessness [Z59.00] Lack of housing 04/28/2024 Chronic midline low back pain without sciatica [M54.50, G89.29] 04/28/2024 Neuropathy [G62.9] Mononeuritis of unspecified site 04/28/2024 Chronic pain syndrome [G89.4] Chronic pain syndrome 04/28/2024 Left flank pain Abdominal pain, unspecified site 05/02/2024 Homeless Lack of housing 05/02/2024 Suicidal ideation 05/03/2024 Left flank pain Abdominal pain, unspecified site 05/03/2024 Marijuana dependence (HCC) Cannabis dependence, unspecified 05/04/2024 Tobacco abuse Tobacco use disorder 05/04/2024 Auditory hallucinations Hallucinations 05/04/2024 Suicidal ideation 05/04/2024 Chronic left-sided low back pain without sciatica 05/04/2024 Renal cyst Unspecified congenital cystic kidney disease 05/04/2024 Elevated blood pressure reading in office without diagnosis of hypertension 05/04/2024 Medical clearance for psychiatric admission 05/04/2024 Polysubstance abuse (HCC) [F19.10] Other, mixed, or unspecified nondependent drug abuse, unspecified 05/06/2024 Mixed hyperlipidemia [E78.2] Mixed hyperlipidemia 05/06/2024 Homelessness [Z59.00] Lack of housing 05/06/2024 Anemia, unspecified type [D64.9] 05/06/2024 Goals Goal Patient Goal Type Associated Problems Recent Progress Patient-Stated? Author Maintain a healthy diet, exercise regularly and maintain an ideal body weight General No Sarah Beth Corral MD Stay Tobacco Free Lifestyle No Sarah Beth Corral MD Care Teams Crusher Foreman Relationship Specialty Start Date End Date No Pcp, Provider Not In Epic PCP - General 05/02/24
--- OUTSIDE RECORDS SUMMARY | 2024-12-02 09:58 | XMS_ITS | Clinical Summary ---
Author Organization [facility] Address [address] [place] [address] Care Team Providers Care Indian Nanny Name Role Phone System, Provider Not In MD Primary Care Provider Unavailable Allergies Active Allergy Reactions Criticality Noted Date Comments Codeine Itching,Rash Medium 01/04/2011 Medications buPROPion SR (Wellbutrin SR) 150 MG 12 hr tablet 05/01/2024 Active ciprofloxacin (Cipro) 500 MG tablet 05/12/2024 Active DULoxetine (Cymbalta) [address] capsule 04/15/2024 Activ e gabapentin (Neurontin) 300 MG capsule 02/12/2024 Active naproxen (Naprosyn) 500 MG tablet Take 1 tablet (500 mg) by mouth every 12 (twelve) hours if needed. 05/02/2024 Active prazosin (Minipress) 1 MG capsule 05/01/2024 Active predniSONE (Deltasone) 20 MG tablet 05/21/2024 Active QUEtiapine (SEROquel) 25 MG tablet 05/14/2024 Active sildenafil (Revatio) 20 MG tablet TAKE 3 TABLETS BY MOUTH DAILY FOR 15 DAYS 06/10/2024 Active tamsulosin (Flomax) 0.4 MG 24 hr capsule 05/12/2024 Activ e venlafaxine XR (Effexor-XR) 75 MG 24 hr capsule 05/01/2024 Active Active Problems No known active problems Family History Medical History Relation Name Comments Cancer Maternal Grandfather Cancer Maternal Grandmother Cancer Mother Breast cancer Sister Relation Name Status Comments Maternal Grandfather Maternal Grandmother Mother Sister 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 Tobacco Use Types Packs/Day Years Used Date Smoking Tobacco: Every Day Cigarettes Smokeless Tobacco: Never Tobacco Cessation:Ready to Q uit: Not Asked; Counseling Given: Not Answered Alcohol Use Standard Drinks/Week Comments Never 0 (1 standard drink = 0.6 oz pur e alcohol) PHQ-2 Answer Date Recorded Patient Health Questionnaire-2 Score 4 07/08/2024 PHQ-9 Answer Date Recorded Patient Health Questionnaire-9 Score 15 07/08/2024 Sex and Gender Information Value Date Recorded Sex Assigned at Not on file Legal Sex Male 6:33 PM EDT Gender Identity Not on file Sexual Orientation Not on file Last Filed Vital Signs Vital Sign Reading Time Taken Comments Blood Pressure 123/92 07/08/2024 12:56 PM EST Pulse 87 07/08/2024 12:56 PM EST Temperature 36.6 C (97.8 F) 07/08/2024 12:56 PM EST Respiratory Rate - - Oxygen Saturation 98% 07/08/2024 12:56 PM EST Inhaled Oxygen Concentration - - Weight 95.3 kg (210 lb) 07/08/2024 12:56 PM EST Height 182.9 cm (6') 07/08/2024 12:56 PM EST Body Mass Index 28.48 07/08/2024 12:56 PM EST Plan of Treatment Health Maintenance Due Date Last Done Comments [facility]-HIV Screening 1964 [facility]-Hepatitis C Screening 1964 [facility]-Infant/Child/Adol SDOH Screenings 1964 [facility]- SDOH Screenings 1982 [facility]-Adult SDOH Screenings 1982 [facility]-DTaP,Tdap,and Td Vaccine s (1 - Tdap) 10/27/1983 [facility]-Pneumococcal Vaccine: 50 + Years (1 of 2 - PCV) 10/27/1983 [facility]-Zoster Vaccines (1 of 2) 10/27/1983 CT Colonography 2009 Colonoscopy 2009 FIT-DNA 2009 FIT 2009 FOBT 2009 Sigmoidoscopy 2009 [facility]-Colorectal Cancer Screening 2009 [id number] Vaccine (3 - Moderna risk series) 09/29/2021 09/01/2021, 08/03/2021 [facility]-RSV Vaccine: 60+ Years o r (1 - Risk 60-74 years 1-dose series) 2024 [facility]-Influenza Vaccine (Seaso n Ended) 2025 [facility]-Depression Screening 07/08/2025 025, 07/08/2024 [facility]-Obesity Intervention Completed 07/08/2024 HPV Vaccines Aged Out No longer eligi ble based on patient's age to complete this topic [facility]-HIB Vaccines Aged Out No longer e ligible based on patient's age to complete this topic [facility]-Hepatitis A Vaccines Aged Out No longer eligible based on patient's age to complete this topic [facility]-IPV Vaccines Aged Out No longer e ligible based on patient's age to complete this topic [facility]-Rotavirus Vaccines Aged Out No lo nger eligible based on patient's age to complete this topic Insurance [employer] Care Teams Indian Nanny Relationship Specialty Start Date End Date System, Provider Not In, [place] [address] PCP - General Family Medicine 06/06/24
[2024-12-02] MEDS: ALBUTEROL 0.083% 2.5 MG/3 ML NEB IH (10:45)
== END 2024-12-02 23:59 | disposition home or self-care (01) ==
LOC: RT 09:53
PROVIDERS: PCP Family Medicine; Visit Provider Family Medicine
DX: J44.9 Chronic obstructive pulmonary disease, unspecified (principal); R94.2 Abnormal results of pulmonary function studies
CPT/HCPCS: 94010; 94727; 94729

== ENCOUNTER 2025-01-27 07:08 | Outpatient (CLI) | payer MEDICAID, SELFPAY ==
--- NOTE | 2025-01-27 | CA_ITS ---
APPROVED REPORT Exam: Pharmacologic Technologist: Lyudmila Dahl Ht: 6 ft 0 in Wt: 204 lbs BSA: 2.15 m2 HR: 64 bpm BP: 136/92 mmHg Stress Test Details Test: Lexiscan HR Resting HR: 64 bpm Max Heart Rate (APMHR): [id number] bpm Max HR Achieved: 90 bpm Target HR (85% APMHR): 136.860791 bpm % of APMHR: 56.25 Recovery HR: 74 bpm BP Resting BP: 136.0/92.0 mmHg Max BP: 142.0/96.0 mmHg Recovery BP: 142.0/96.0 mmHg ECG Resting ECG: Sinus rhythm Stress ECG Conclusion Symptoms: Dysnpea, chest pressure Arrhythmias/Ectopy: - ST-T Changes: Less than [address] depression Conclusion: EKG unremarkable due to Lexiscan infusion. Electronically signed by : Alyse Yap MD 01/27/2025 20:34:57
--- OUTSIDE RECORDS SUMMARY | 2025-01-27 07:11 | XMS_ITS | Continuity of Care Document ---
Author Organization [facility] Address [address] [place] [address] Phone Care Team Providers Care Rug Measurer Name Role Phone No Pcp, Provider Not In [facility] Primary Care Provid er Unavailable Encounters Date Type Department Care Team Description 05/06/2024 External Contact [facility] [place] [address] [place] [address] Heath Beasley MD Polysubstance abuse (HCC) [F19.10] (Primary Dx); Mixed hyperlipidemia [E78.2]; Homelessness [Z59.00]; Anemia, unspecified type [D64.9] 05/04/2024 External Contact [facility] [place] [address] [place] [address] Areli Palacios APRN Marijuana dependence (HCC) (Primary Dx); Tobacco abuse; Auditory hallucinations; Suicidal ideation; Chronic left-sided low back pain without sciatica; Renal cyst; Elevated blood pressure reading in office without diagnosis of hypertension; Medical clearance for psychiatric admission 05/03/2024 Travel 05/03/2024 9:00 PM EST - 05/03/2024 11:50 PM EST Emergency [facility] [address] [place] [address] Dontrell Payne MD Suicidal ideation (Primary Dx); Left flank pain Discharge Disposition: Psychiatric Hospital 05/02/2024 Travel 05/02/2024 8:27 PM EST - 05/02/2024 10:58 PM EST Emergency [facility] [address] [place] [address] Arthur Calderón MD Left flank pain (Primary Dx); Homeless Discharge Disposition: Home or Self Care 04/28/2024 External Contact [facility] [place] [address] [place] 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 [address] Matilde Tinoco MD Chest wall pain (Primary Dx); Spasm of muscle Discharge Disposition: Home or Self Care 02/13/2020 Orders Only [facility] [address] [place] [address] Sarah Beth Corral MD Screening for colon cancer; Screening for cancer of the rectum 08/27/2019 Travel 06/04/2019 9:00 AM EST Office Visit [facility] [address] [place] [address] Sarah Beth Corral MD Mood disorder (Primary Dx); Psychophysiological insomnia; Panic attacks 06/01/2019 1:39 PM EST - 06/01/2019 3:24 PM EST Emergency [facility] [address] [place] [address] Sharath Guevara MD Acute anxiety (Primary Dx) Discharge Disposition: Home or Self Care 09/22/2018 10:26 AM EDT - 09/22/2018 6:32 PM EDT [facility] [address] [place] [address] James Palafox MD Suicidal ideation (Primary Dx) Discharge Disposition: Discharged/Transferre d to a [facility] 09/09/2018 6:22 PM EDT - 09/10/2018 7:22 AM EDT Emergency [facility] [address] [place] [address] Aj Arita MD Suicidal ideations (Primary Dx) Discharge Disposition: [facility] 08/07/2018 5:10 AM EST - 08/07/2018 2:37 PM EST Emergency [facility] [address] [place] [address] Sharath Wheeler MD Francesca, Chip Barahona MD [...] Mother 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 Smoking Status as of 01/27/2025 Tobacco Use Types Packs/Day Years Used Date [...] RAPID DRUGS OF ABUSE W/REFLEX TO CONFIRMATION, UR(COV/DBN/GRT/ELAN) STAT 05/03/2024 9:[address] ABDOMEN [...] 10.3 x10(3)/mcL 05/03/2024 9:38 PM EST [facility] RBC 4.29(L) 4.60 - 6.10 x10(6)/mcL 05/03/2024 9:38 PM EST [facility] Hgb 13.6(L) 13.7 - 17.5 g/dL 05/03/2024 9:38 PM EST [facility] Hct 39.2(L) 40.0 - 51.0 % 05/03/2024 9:38 PM EST [facility] MCV 91.4 80.0 - 100.0 fL 05/03/2024 9:38 PM EST [facility] MCH 31.7 26.0 - 34.0 pg 05/03/2024 9:38 PM EST [facility] MCHC 34.7 30.7 - 35.5 g/dL 05/03/2024 9:38 PM EST [facility] RDW 12.3 <=14.9 % 05/03/2024 9:38 PM EST [facility] Platelet 206 155 - 369 x10(3)/mcL 05/03/2024 9:38 PM EST [facility] MPV 9.4 8.8 - 12.5 fL 05/03/2024 9:38 PM EST [facility] Neut Percent 63.5 % 05/03/2024 9:38 PM EST [facility] Comment:Neutrophils equals s egs plus bands Imm Gran% 0.2 % 05/03/2024 9:38 PM EST [facility] Comment:Automated count of m etamyelocytes, myelocytes and promyelocytes. Lymph Percent 24.8 % 05/03/2024 9:38 PM EST [facility] [place] Percent 8.9 % 05/03/2024 9:38 PM EST [facility] Eos Percent 1.8 % 05/03/2024 9:38 PM EST [facility] Baso Percent 0.8 % 05/03/2024 9:38 PM EST [facility] Neut # 5.3 1.6 - 6.1 x10(3)/mcL 05/03/2024 9:38 PM EST [facility] Comment:Neutrophils equals s egs plus bands IMMGRAN# 0.0 0.0 - 0.1 x10(3)/mcL 05/03/2024 9:38 PM EST [facility] Comment:Automated count of m etamyelocytes, myelocytes and promyelocytes. An absolute IG <0.1 is reported as 0.0. Lymph # 2.1 1.2 - 3.9 x10(3)/mcL 05/03/2024 9:38 PM EST [facility] [place] # 0.8 0.3 - 0.9 x10(3)/mcL 05/03/2024 9:38 PM EST [facility] Eos# 0.2 0.0 - 0.5 x10(3)/mcL 05/03/2024 9:38 PM EST [facility] Baso # 0.1 0.0 - 0.1 x10(3)/mcL 05/03/2024 9:38 PM EST [facility] Blood VENOUS BLOOD / Unknown Venipuncture / Unknown 05/03/2024 9:27 PM EST 05/03/2024 9:35 PM EST us Eh Taveras PA-C HEMATOLOGY ORDERABLES Fi nal Result [facility] [address] [phone] * ALCOHOL MEDICAL (05/03/2024 9:27 PM EST) Only the most recent of5 resultswithin the time period is included. Alcohol Medical <10 <=10 mg/dL 9:57 PM EST [facility] Comment: 50-100 mg/dL - Flushing, slowing of reflexes, impaired visual acuity > 100 mg/dL - Depression of SPECIAL INVESTIGATOR > 400 mg/dL - Fatalities reported Blood VENOUS BLOOD / Unknown Venipuncture / Unknown 05/03/2024 9:27 PM EST 05/03/2024 9:35 PM EST Oni Dayana Ubalozhen [place]-C CHEMISTRY ORDERABLES Fin al Result Performing Organization Address [facility] de Phone Number [facility] [address] [phone] * (ABNORMAL) ACETAMINOPHEN LEVEL (05/03/2024 9:27 PM EST) Only the most recent of5 resultswithin the time period is included. Pathologist [facility] Acetaminophen Lvl <5.0(L) 10.0 - 30.0 mcg/mL 05/03/2024 9:57 PM EST [facility] Blood VENOUS BLOOD / Unknown Venipuncture / Unknown 05/03/2024 9:27 PM EST 05/03/2024 9:35 PM EST Narrative [facility] - 05/03/2024 9:57 PM EST Supratherapeutic: > 35 mcg/ml Toxic: > 200 mcg/ml (4h post ingestion) > 100 mcg/ml (8h post ingestion) > 50 mcg/ml (12h post ingestion) [facility] Dayana EasyPaint PA-C CHEMISTRY ORDERABLES Fin al Result Performing Organization Address [facility] de Phone Number [facility] [address] [phone] * SALICYLATE LEVEL (05/03/2024 9:27 PM EST) Only the most recent of5 resultswithin the time period is included. Salicylate <0.5 <=30.0 mg/dL 05/03/2024 9:57 PM EST [facility] Comment: Therapeutic range for anti-pyretic/analgesic conditions 3-10 mg/dL Therapeutic range for anti-inflammatory/rheumatic fever conditions 15-30 mg/dL Toxic range >30 mg/dL Blood VENOUS BLOOD / Unknown Venipuncture / Unknown 05/03/2024 9:27 PM EST 05/03/2024 9:35 PM EST Eh Taveras PA-C CHEMISTRY ORDERABLES Fin al Result [facility] [address] [phone] * (ABNORMAL) COMPREHENSIVE METABOLIC PANEL (05/03/2024 9:27 PM EST) Only the most recent of2 resultswithin the time period is included. Sodium 143 136 - 145 mmol/L 05/03/2024 9:57 PM EST [facility] Potassium 3.7 3.5 - 5.0 mmol/L 05/03/2024 9:57 PM EST [facility] Chloride 104 98 - 107 mmol/L 05/03/2024 9:57 PM EST [facility] Total CO2 28 22 - 29 mmol/L 05/03/2024 9:57 PM EST [facility] Anion Gap 11 7 - 16 mmol/L 05/03/2024 9:57 PM EST [facility] Calcium 9.5 8.6 - 10.4 mg/dL 05/03/2024 9:57 PM EST [facility] Glucose Lvl 90 70 - 99 mg/dL 05/03/2024 9:57 PM EST [facility] BUN 16 6 - 20 mg/dL 05/03/2024 9:57 PM EST [facility] Creatinine 1.18 0.67 - 1.30 mg/dL 05/03/2024 9:57 PM EST [facility] Albumin 4.3 3.5 - 5.2 gm/dL 05/03/2024 9:57 PM EST [facility] Total Protein 6.8 6.4 - 8.3 gm/dL 05/03/2024 9:57 PM EST [facility] Bili Total 0.5 0.2 - 1.4 mg/dL 05/03/2024 9:57 PM EST [facility] ALT 17 <=41 U/L 05/03/2024 9:57 PM EST [facility] AST 51(H) <=40 U/L 05/03/2024 9:57 PM EST [facility] Alk Phos 65 40 - 129 U/L 05/03/2024 9:57 PM EST [facility] eGFR (CKD-EPIcr 2020) 71 >=60 mL/min/1.7 3 m2 05/03/2024 9:57 PM EST [facility] Comment:Estimated GFR was ca lculated using the CKD-EPIcr (2020) equation refit without race. The equation is recommended by the National Kidney [employer] - [place] [employer] Neph[employer] Task Force. Blood VENOUS BLOOD / Unknown Venipuncture / Unknown 05/03/2024 9:27 PM EST 05/03/2024 9:35 PM EST Eh Taveras PA-C CHEMISTRY ORDERABLES Fin al Result [facility] [address] [phone] * (ABNORMAL) URINALYSIS REFLEX (05/03/2024 9:18 PM EST) UA Color Yellow 05/03/2024 9:23 PM EST [facility] UA Appear Clear Clear 05/03/2024 9:23 PM EST [facility] UA Glucose Negative Negative mg/dL 05/03/2024 9:23 PM EST [facility] UA Ketones Negative Negative mg/dL 05/03/2024 9:23 PM EST [facility] UA Blood Negative Negative 05/03/2024 9:23 PM EST [facility] UA pH 6.0 5.0 - 8.0 pH 05/03/2024 9:23 PM EST [facility] UA Protein Negative Negative mg/dL 05/03/2024 9:23 PM EST [facility] UA Urobilinogen 2.0(A) <=1 mg/dL 9:23 PM EST [facility] UA Bili Negative Negative 05/03/2024 9:23 PM EST [facility] UA Nitrite Negative Negative 05/03/2024 9:23 PM EST [facility] UA Leuk Est Negative Negative 05/03/2024 9:23 PM EST [facility] UA Spec Grav 1.025 1.001 - 1.035 no units 05/03/2024 9:23 PM EST [facility] Comment:Reference range demarcus d for random specimens only. Urine URINE SPECIMEN COLLECTION, CLEAN CATCH / Unknown 05/03/2024 9:18 PM EST 05/03/2024 9:21 PM EST Eh FITZGERALD-Tae URINE ORDERABLES Final R esult Performing Organization Address City/[facility] Co de Phone Number [facility] [address] [phone] * EXTRA MARTIN URINE CX (05/03/2024 9:18 PM EST) Only the most recent of3 resultswithin the time period is included. Urine URINE SPECIMEN COLLECTION, CLEAN CATCH / Unknown 05/03/2024 9:18 PM EST 05/03/2024 9:21 PM EST Eh FITZGERALD-C MICROBIOLOGY - GENERAL O RDERABLES Final Result Performing Organization Address [facility] de Phone Number [facility] [address] [phone] * (ABNORMAL) RAPID DRUGS OF ABUSE W/REFLEX TO CONFIRMATION, UR(COV/DBN/GRT) (05/03/2024 9:14 PM EST) Cannabinoid Rapid Presumptive Pos(A) Absent 05/03/2024 9:35 PM EST [facility] Cocaine Rapid Absent Absent 05/03/2024 9:35 PM EST [facility] Methamphetamine Rapid Absent Absent 05/03/2024 9:35 PM EST [facility] Opiate Rapid Absent Absent 05/03/2024 9:35 PM EST [facility] Amphetamine Rapid Absent Absent 9:35 PM EST [facility] Benzodiazepines Rapid Absent Absent 05/03/2024 9:35 PM EST [facility] Tricyclic Rapid Presumptive Pos(A) Absent 05/03/2024 9:35 PM EST [facility] Methadone Rapid Absent Absent 4 9:35 PM EST [facility] Barbiturate Rapid Absent Absent 9:35 PM EST [facility] Oxycodone Rapid Absent Absent 4 9:35 PM EST [facility] BUPRENORPHINE RAPID Absent Absent 05/03/2024 9:35 PM EST [facility] Urine URINE SPECIMEN COLLECTION / Unknown 05/03/2024 9:14 PM EST 05/03/2024 9:21 PM EST [facility] - 05/03/2024 9:35 PM EST These [...] Eh FITZGERALD-Tae URINE ORDERABLES Final R esult [facility] [address] [place] [address], [facility] [phone] * (ABNORMAL) DRUG CONFIRMATION, CANNABINOIDS - URINE (05/03/2024 9:14 PM EST) THC <10 Cutoff 10 ng/mL ng/mL 05/05/2024 7:54 AM EST [facility] THC Glucuronide >200(H) Cutoff 10 ng/mL ng/mL 05/05/2024 7:54 AM EST [facility] Urine URINE SPECIMEN COLLECTION / Unknown 05/03/2024 9:14 PM EST 05/03/2024 9:21 PM EST Eh Taveras PA-C URINE ORDERABLES [facility] Performing Organization Address City/[facility]/ZIP Co de Phone Number [facility] [address] [facility] , [place] [address] * FENTANYL SCREEN, URINE (05/03/2024 9:14 PM EST) Fentanyl Absent Cutoff 5 ng/mL 05/04/2024 12:54 AM EST [facility] Urine Creatinine 189.0 mg/dL 05/04/20 24 12:54 AM EST [facility] Comment: Greater than 20: Consistent with valid sample Greater than 2 but less than 20: Possible dilution Less than 2: Questionable valid sample Urine URINE SPECIMEN COLLECTION / Unknown 05/03/2024 9:14 PM EST 05/03/2024 9:21 PM EST Narrative [facility] - 05/04/2024 12:54 AM EST These drug [...] Taveras PA-C URINE ORDERABLES Final R esult [facility] [address] [place] [address] , [place] [address] * CT ABDOMEN PELVIS WO ORAL OR [...] Granuloma in the right base. Procedure Note Tritle, Fermin A, MD - 03/03/2020 PA AND LATERAL CHEST [...] BASELINE W/ REFLEX (03/03/2020 5:30 PM EDT) ma-dIyyaxngc-N 9 <22 ng/L 03/03/2020 5:53 PM EDT [facility] Comment:See the website JRapid for rule out PA care pathway, conditions other than AMI that can cause elevated hs cTnT, and comparison of values from the 4th and 5th generation Paul tests. https://askmayoexpert.[facility].org/topic/clinical-answers/gnt-84455326/[email or web address] 86183 Blood VENOUS BLOOD / Unknown Venipuncture / Unknown 03/03/2020 5:30 PM EDT 03/03/2020 5:33 PM EDT Narrative [facility] - 03/03/2020 5:53 PM EDT Ingestion of sommer doses of biotin (>5 mg/day) taken within 8 hours of drawing blood sample can interfere with this immunoassay test. Matilde Tinoco MD CHEMISTRY ORDERABLES Final Resul t [facility] [address] [place] [address] * EXTRA LIGHT BLUE (03/03/2020 5:30 PM EDT) Only the most recent of2 resultswithin the time period is included. Blood VENOUS BLOOD / Unknown Venipuncture / Unknown 03/03/2020 5:30 PM EDT 03/03/2020 5:34 PM EDT us Matilde Tinoco MD HEMATOLOGY ORDERABLES Final Resu lt Performing Organization Address City/[facility]/ZIP Co de Phone Number [facility] [address] [place] [address] * CBC (03/03/2020 5:30 PM EDT) WBC 7.0 4.0 - 11.0 x10(3)/mcL 03/03/2020 5:37 PM EDT [facility] RBC 4.55 4.30 - 5.81 x10(6)/mcL 03/03/2020 5:37 PM EDT [facility] Hgb 14.0 13.5 - 17.1 g/dL 03/03/2020 5:37 PM EDT [facility] Hct 41.2 38.9 - 51.6 % 03/03/2020 5:37 PM EDT [facility] MCV 90.5 82.5 - 99.8 fL 03/03/2020 5:37 PM EDT [facility] MCH 30.8 27.0 - 34.3 pg 03/03/2020 5:37 PM EDT [facility] MCHC 34.0 32.1 - 35.3 g/dL 03/03/2020 5:37 PM EDT [facility] RDW 13.2 11.5 - 15.0 % 03/03/2020 5:37 PM EDT [facility] Platelet 198 144 - 423 x10(3)/mcL 03/03/2020 5:37 PM EDT [facility] MPV 7.6 6.8 - 10.8 fL 03/03/2020 5:37 PM EDT [facility] Blood VENOUS BLOOD / Unknown Venipuncture / Unknown 03/03/2020 5:30 PM EDT 03/03/2020 5:33 PM EDT Matilde Tinoco MD HEMATOLOGY ORDERABLES Final Resu lt [facility] [address] [place] [address] * (ABNORMAL) BASIC METABOLIC PANEL (03/03/2020 5:30 PM EDT) Only the most recent of4 resultswithin the time period is included. Sodium 136 136 - 145 mmol/L 03/03/2020 5:53 PM EDT [facility] Potassium 4.0 3.5 - 5.0 mmol/L 03/03/2020 5:53 PM EDT [facility] Chloride 103 98 - 107 mmol/L 03/03/2020 5:53 PM EDT [facility] Total CO2 23 22 - 29 mmol/L 03/03/2020 5:53 PM EDT [facility] Anion Gap 10 7 - 16 mmol/L 03/03/2020 5:53 PM EDT [facility] Calcium 9.2 8.6 - 10.4 mg/dL 03/03/2020 5:53 PM EDT [facility] Glucose Lvl 129(H) 74 - 100 mg/dL 03/03/2020 5:53 PM EDT [facility] BUN 18 6 - 20 mg/dL 03/03/2020 5:53 PM EDT [facility] Creatinine 1.31(H) 0.67 - 1.30 mg/dL 03/03/2020 5:53 PM EDT [facility] GFR Afr Am 70 >=60 mL/min/1.7 3 m2 03/03/2020 5:53 PM EDT [facility] GFR Non Afr Am 61 >=60 mL/min/1.7 3 m2 03/03/2020 5:53 PM EDT [facility] Comment: This estimated GFR was [...] Tinoco MD CHEMISTRY ORDERABLES Final Resul t [facility] [address] [facility] [place] [id number] * EK EKG 12 LEAD (03/03/2020 5:04 PM EDT) Only the most recent of2 resultswithin the time period is included. Anatomical Region Laterality Modality Electrocardiogra phy 03/03/2020 5:18 PM EDT Impressions 03/04/2020 5:[address] [facility] [place] Test Date: 2020-03-03 Pat Name: [facility] Department: DEPID Room: Gender: Male Radiologic Technologist Mammogram: : 1965 Requested By: [facility] Order Number: [id number] Reading MD: Александр Thomas MD Measurements Intervals Paron Rate: 79 P: 67 OK: 150 QRS: 24 QRSD: 93 T: 32 QT: 370 QTc: 424 Interpretive Statements SINUS RHYTHM Electronically Signed On 03-04-2020 17:24:12 EDT by Александр Thomas MD Narrative Procedure Note Jaswinder Thomas MD - 03/04/[address] [facility] Test Date: 2020-03-03 Pat Name: [facility] Department: DEPID Room: Gender: Male Radiologic Technologist Mammogram: : 1965 Requested By: [facility] Order Number: [id number] Reading MD: Александр Thomas MD Measurements Intervals Paron Rate: 79 P: 67 OK: 150 QRS: 24 QRSD: 93 T: 32 QT: 370 QTc: 424 Interpretive Statements SINUS RHYTHM Electronically Signed On 03-04-2020 17:24:12 EDT by Александр Thomas MD us Matilde Tinoco MD IMG ECG ORDERABLES Final Result * EXTRA YELLOW URINE (09/22/2018 12:22 PM EDT) Urine Collection / Unknown 09/22/2018 12:22 PM EDT 09/22/2018 12:31 PM EDT us James Palafox MD URINE ORDERABLES Final Re sult [facility] [address] [place] [id number] * (ABNORMAL) DRUGS OF ABUSE, SCREEN ONLY, URINE (09/22/2018 12:22 PM EDT) Only the most recent of4 resultswithin the time period is included. 6 AM (Heroin) Absent Cutoff 10 ng/mL 09/22/2018 12:[address] [facility] Amphetamines Absent Cutoff 500 ng/mL 09/22/2018 12:[address] [facility] Barbiturates Absent Cutoff 200 ng/mL 09/22/2018 12:[address] [facility] Benzodiazepines Absent Cutoff 200 ng/mL 09/22/2018 12:[address] [facility] Buprenorphine Absent Cutoff 5 ng/mL 09/22/2018 12:[address] [facility] Cannabinoid Metabolite Presumptive Pos(A) Cutoff 50 ng/mL 09/22/2018 12:[address] [facility] Cocaine Metabolite Absent Cutoff 150 ng/mL 09/22/2018 12:[address] [facility] Methadone and Metabolite Absent Cutoff 300 ng/mL 09/22/2018 12:[address] [facility] Opiate Absent Cutoff 300 ng/mL 09/22/2018 12:[address] [facility] Oxycodone Lvl Absent Cutoff 100 ng/mL 09/22/2018 12:[address] [facility] Phencyclidine Absent Cutoff 25 ng/mL 09/22/2018 12:[address] [facility] Creatinine Ur >25.0 mg/dL 09/22/2018 12:[address] [facility] Comment: Greater than 20: Consistent with valid sample Greater than 2 but less than 20: Possible dilution Less than 2: Questionable valid sample Urine STRUCTURE OF URINARY TRACT PROPER / Unknown Collection / Unknown 09/22/2018 12:22 PM EDT 09/22/2018 12:30 PM EDT Narrative [facility] - 09/22/2018 12:53 PM EDT [...] Palafox MD URINE ORDERABLES Final Re sult [facility] [address] [place] [address] * URINALYSIS (09/22/2018 12:22 PM EDT) Only the most recent of2 resultswithin the time period is included. UA Color Yellow 09/22/2018 12:[address] [facility] UA Appear Clear Clear 09/22/2018 12:[address] [facility] UA Glucose Negative Negative mg/dL 09/22/2018 12:[address] [facility] UA Ketones Negative Negative mg/dL 09/22/2018 12:[address] [facility] UA Blood Negative Negative 09/22/2018 12:[address] [facility] UA pH 5.5 5.0 - 8.0 pH 09/22/2018 12:[address] [facility] UA Protein Negative Negative mg/dL 09/22/2018 12:[address] [facility] UA Urobilinogen 0.2 <=1 mg/dL 9 12:[address] [facility] UA Bili Negative Negative 09/22/2018 12:[address] [facility] UA Nitrite Negative Negative 09/22/2018 12:[address] [facility] UA Leuk Est Negative Negative 09/22/2018 12:[address] [facility] UA Spec Grav >=1.030 1.001 - 1.035 no units 09/22/2018 12:46 PM EDT [facility] Comment: Reference range valid for random specimens only. Urine URINE SPECIMEN COLLECTION, CLEAN CATCH / Unknown Collection / Unknown 09/22/2018 12:22 PM EDT 09/22/2018 12:30 PM EDT us James Palafox MD URINE ORDERABLES Final Re sult Performing Organization Address [facility] Co de Phone Number [facility] [address], [place] [address] * EXTRA GOLD SST (09/22/2018 10:58 AM EDT) Blood VENOUS BLOOD / Unknown Venipuncture / Unknown 09/22/2018 10:58 AM EDT 09/22/2018 11:12 AM EDT us James Palafox MD CHEMISTRY ORDERABLES Francie l Result Performing Organization Address [facility] de Phone Number [facility] [address] [place] [address] * TSH REFLEX (09/22/2018 10:58 AM EDT) TSH Reflex 3.040 0.270 - 4.200 mcIU/mL 09/22/2018 4:54 PM EDT [employer] Blood VENOUS BLOOD / Unknown Venipuncture / Unknown 09/22/2018 10:58 AM EDT 09/22/2018 11:09 AM EDT Narrative [employer] - 09/22/2018 4:54 PM EDT Ingestion of sommer doses of biotin (>5 mg/day) taken within 8 hours of drawing blood sample can interfere with this immunoassay test. us James Palafox MD CHEMISTRY ORDERABLES Francie l Result Performing Organization Address [facility] Co de Phone Number [employer] [address] [place] [address] , [place] [address] * EXTRA MINT GREEN LI (09/09/2018 7:01 PM EDT) Blood VENOUS BLOOD / Unknown Venipuncture / Unknown 09/09/2018 7:01 PM EDT 09/09/2018 7:22 PM EDT Aj Arita MD CHEMISTRY ORDERABLES Final Resul t Performing Organization Address City/[facility]/ZIP Co de Phone Number [facility] [address] [place] [address] * HIV AG/AB (08/24/2017 5:52 PM EST) Pathologist [facility] HIV Ag/AB Non-Reacti ve Non-Reactive, See Footnote 08/25/2017 12:33 PM EST [facility] Blood VENOUS BLOOD / Unknown Venipuncture / Unknown 08/24/2017 5:52 PM EST 08/24/2017 5:52 PM EST Rosendo Hampton MD IMMUNOLOGY ORDERABLES Final Resu lt Performing Organization Address City/[facility] Co de Phone Number [facility] [address] [place] [address] * HEPATITIS C ANTIBODY IGM + IGG (08/24/2017 5:52 PM EST) Pathologist [facility] Hep C Ab Negative Negative 08/25/2017 12:32 PM EST [facility] Blood VENOUS BLOOD / Unknown Venipuncture / Unknown 08/24/2017 5:52 PM EST 08/24/2017 5:52 PM EST Rosendo Hampton MD IMMUNOLOGY ORDERABLES Final Resu lt Performing Organization Address [facility] [place] [address] * HEPATITIS B SURFACE ANTIBODY (08/24/2017 5:52 PM EST) Pathologist [facility] Hep Bs Ab <3.08 mcIU/mL 08/25/2017 12:33 PM EST [facility] Comment: < 8.00 mIU/mL - NON [...] Hampton MD IMMUNOLOGY ORDERABLES [place] [address] * CT ANGIO FOR PULMONARY EMBOLUS (09/19/2015 2:34 PM EDT) Anatomical Region Laterality Modality Other 09/19/2015 2:34 PM EDT Impressions 09/20/2015 12:37 PM EDT 1. NO PULMONARY EMBOLI DETECTED. 2. BIBASILAR ATELECTASIS OR FIBROTIC CHANGE. Reported and released by Narrative 09/20/2015 12:37 PM EDT [facility] Age: 51 Acct: [id number] EXAMS: [id number] - CTA THORAX PULMONARY EMBOLUS HISTORY/INDICATIONS: SHORT [...] Procedure Note Diogenes Atkinson MD - [facility] Age: 51 Acct: [id number] EXAMS: [id number] - CTA THORAX PULMONARY EMBOLUS HISTORY/INDICATIONS: SHORT [...] OR FIBROTIC CHANGE. Reported and released by Rex Murry NP [...] released by Narrative 09/20/2015 9:59 AM EDT [facility] Age: 51 Acct: [id number] EXAMS: [id number] - CHEST-FRONTAL HISTORY/INDICATIONS: COUGH, SHORT OF BREATH, [...] Procedure Note Diogenes Atkinson MD - 03[facility]26/2021 [facility] Age: 51 Acct: [id number] EXAMS: [id number] - CHEST-FRONTAL HISTORY/INDICATIONS: COUGH, SHORT OF BREATH, [...] CARDIOPULMONARYDISEASE. Reported and released by Rex Murry MANAGER MEDIA RELATIONS IMG DBN MEDI RAD HISTORICAL Final Result [...] No Sarah Beth Corral MD Care Teams Rug Measurer Relationship Specialty Start Date End Date No Pcp, Provider Not In Epic PCP - General 05/02/24
--- OUTSIDE RECORDS SUMMARY | 2025-01-27 07:11 | XMS_ITS | Clinical Summary ---
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
--- OUTSIDE RECORDS SUMMARY | 2025-01-27 07:11 | XMS_ITS | Encounter Summary ---
Author Organization [facility] Address [address] [place] [address] Care Team Providers Care Brush Polisher Name Role Phone System, Provider Not In MD Primary Care Provider Unavailable Reason for Referral * Consultation (Routine) - Closed Specialty Diagnoses / Procedures Referred By Gonzalo galicia Referred To Contact Hand Surgery Diagnoses Other secondary osteoarthritis of right wrist Charles Quinonez DO [address] [facility] [address] [place] [address] Phone: tel: fax: Nicanor Valenzuela MD [address] [place] [phone] Phone: tel: fax: Referral ID Status Reason Start Date Expiration Date V isits Requested Visits Authorized [id number] Closed Specialty Services Required 06/03/2024 12/03/2025 1 1 Encounter Details Date Type Department Care Team (Latest Contact Info) Description 06/03/2024 [facility] [address] [place] [address] Charles Quinonez DO [address] [facility] [address] [place] [address] Other secondary osteoarthritis of right wrist (Primary [...] Primary documented in this encounter Care Teams Brush Polisher Relationship Specialty Start Date End Date System, Provider Not In, [place] [address] PCP - General Family Medicine 06/06/24 documented as of this encounter
--- NOTE | 2025-01-27 07:30 | NM_ITS ---
APPROVED REPORT Exam: Nuclear Stress Test Indication: SOB, Tobacco use Patient Location: Outpatient Stress Tech: Lyudmila Dahl CO Tech:Eunice Foley, HENRIETTAT, RT (R)(N) Ht: 6 ft 0 in Wt: 210 lbs HR: 58 bpm BP: 136/92 mmHg BSA: 2.18 m2 TID: 0.90 History: SOB, Tobacco use Procedure: Patient received 0.4 mg of intravenous Lexiscan, resting heart rate 58 bpm, resting blood pressure 136/92 mmHg, with Lexiscan maximum heart rate achieved was 91 bpm which is % of the maximum predicted heart rate and blood pressure was 142/96 mmHg. With Lexiscan, patient denied any complaint of chest pain. Cardiac Stress and Resting SPECT Images: Cardiac Stress and Resting SPECT images were obtained using technetium 99m Myoview 32.7 mCi stress and 10.20 mCi at rest. Resting and stress imaging in supine and prone positions demonstrate a medium-sized, moderate, partially reversible perfusion defect in the basal to mid inferior LV wall. Gated imaging demonstrates normal global LV systolic function. LVEF is calculated at 54%. Conclusion: Medium-sized, moderate, partially reversible perfusion defect in the basal to mid inferior LV wall. Findings are suggestive of partial reversible ischemia. Gated imaging demonstrates normal global LV systolic function. LVEF is calculated at 54%. Electronically signed by : Alyse Yap MD 01/27/2025 20:16:49
[2025-01-27] MEDS: ISOTOPE MYOVIEW (PER STUDY) 1 DOSE IV (08:58)
[2025-01-27] MEDS: SODIUM CHLORIDE 0.9% 10ML SYR (RAD ONLY) 10 ML IV ×2 (08:58)
== END 2025-01-27 23:59 | disposition home or self-care (01) ==
LOC: RAD 07:09
PROVIDERS: PCP Family Medicine; Visit Provider Family Medicine
DX: R06.09 Other forms of dyspnea (principal); R06.02 Shortness of breath; R07.89 Other chest pain; Z72.0 Tobacco use
CPT/HCPCS: 78452; 93016; 93017; 93018; A9502; J2785

== ENCOUNTER 2025-03-05 09:27 | Outpatient (CLI) | payer MEDICAID, SELFPAY ==
--- OUTSIDE RECORDS SUMMARY | 2015-03-16 09:00 | XMS_ITS | Continuity of Care Document ---
Author Organization [facility] Care [facility] Address [facility] [address] [address] Phone Care Team Providers Care Health Tech Name Role Phone Rex Recinos Unavailabl e Allergies, Adverse Reactions, Alerts Substance Reaction Status Criticality codeine Active No Information Medications Medication Instructions Dosage Effective Dates (start - stop) Status Comments citalopram 20 mg tablet take 1 tablet by oral route every day 20 MG - Active mirtazapine 30 mg tablet take 1 tablet by oral route every day before bedtime 30 MG - Active prazosin 1 mg capsule take 1 capsule by oral route every 5 bedtimes 1 MG - Active Procedures Procedure Date OFFICE/OUTPATIENT VISIT, [facility] Advance Directives Directive Yes / No Effective Date File Name Resuscitation Not Answered N/A N/A Other Directive No N/A N/A WARNING:The information contained in this section is historical and is provided for information only and does not constitute a legal document or any assurance that the information is still accurate. Please verify the information with the brito of the legal document before using it for clinical purposes. Encounters Encounter Description Practice Location Reason(s) For Visit Diagnoses Date Provider Providers Copied on Encounter OFFICE/OUTPA TIENT VISIT, [facility], [facility] Primary [facility] [address], [place], [address], [place] tel:[phone] [facility] Preventive exam (chief complaint)T B skin test (chief complaint) Encounter to establish careDepressionInso mniaTobacco abusePoor dentitionAt risk for colon cancerExposure to TB 5 Juan Goodman. [address] [facility], [id number] [address], [place], [id number] , . tel:[phone] Family History Family Member Type Diagnosis Age At Onset Problem (finding) Family history of Cance r, unknown Payers Payer name Insurance type Covered democrat ID Rosi martinez(s) Medicaid [facility] [id number] 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 Type Description Quantity Date Captured Comments Alcohol Use Details Unknown Caffeine Use Details Unknown Tobacco Use Status Smoking Status Current some day smoker Smoking Tobacco Use Details Cigarette: No Details Available Cigarette: No Details Available Sex Male Vital Signs Date / Time: Height Weight BMI Pulse Rate Blood Pressure Temperature Respiratory Rate Body Surface Area Head Circumference Head Circ. Percentile Wt./Rob. Percentile BMI percentile Pulse Ox Inhaled Ox 1:18 PM 72.00 in 87.180 kg (192.20 lbs) 26.0 6 kg/m eter (2) 64 /min 115/76 mm[Hg] 97.30 F 14 /min 2.10 meter(2) Chief Complaint And Reason For Visit From encounter dated '03/16/2015 13:00'. Preventive exam (chief complaint) TB skin test (chief complaint) Reason For Referral Reason For Referral No Information Plan Of Treatment Date Type Action Status Future Order: Lab Order CBC w/di ff ([id number]), Sent on: Sent Future Order: Lab Order CMP ([id number]), S ent on: Sent Future Order: Lab Order Hemoglob in A1c ([id number]), Sent on: Sent Future Order: Lab Order Lipid Pa micky ([id number]), Sent on: Sent Future Order: Lab Order TSH ([id number]), S ent on: Sent Future Order: Lab Order Occult B lood, Fecal, [place] ([id number]), Sent on: Sent History Of Present Illness Encounter Date Complaint History Of Prese nt Illness Preventive exam TB skin test Functional Status Date Functional Assessmen t No Information Instructions Date Instruction Additional Infor mation No Information Assessments Type Assessment Date assessment Encounter to establish care assessment Depression assessment Insomnia assessment Tobacco abuse assessment Poor dentition assessment At risk for colon cancer 2014 impression Ordered blood lab work on patien t. impression Patient currently sees another fernando boo for condition. impression Will address with patient at nex t encounter. impression Patient to follow up with [facility] de ntistry jacquelin. impression Patient provided a f ecal occult test today. Patient to perform this test jacquelin. Discussed the increased risk for colon cancer as the patient ages. impression Mantoux test perform ed. pt to follow up in 48 - 72 hours for reading. assessment Exposure to TB Mental Status Date Cognitive Assessment Orientation - Penn ed to time, place, person, situation. Patient Care Teams Name Effective Dates (start - stop) Status Members No Information
--- OUTSIDE RECORDS SUMMARY | 2020-09-17 08:47 | XMS_ITS | Continuity of Care Document ---
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 Nucleic acidamplification tests include RT-PCR and TMA. This test has not beenFDA cleared or approved. This test has been authorized by FDA underan Emergency Use Authorization (EUA). This test is only authorizedfor the duration of time the declaration that circumstances existjustifying the authorization of the emergency use of in vitrodiagnostic tests for detection of SARS-CoV-2 virus and/or diagnosisof COVID-19 infection under section 564(b)(1) of the Act, 21 U.S.C.360bbb-3(b) (1), unless the authorization is terminated or revokedsooner.When diagnostic testing is negative, the possibility of a falsenegative result should be considered in the context of a patient'srecent exposures and the presence of clinical signs and symptomsconsistent with COVID-19. An individual without symptoms of COVID-19and who is not shedding SARS-CoV-2 virus would expect to have anegative (not detected) result in this assay.[facility] [id number] [place] [id number] Ricchiuti, PhD Panel Description: SARS-CoV-2, TONIE 2 DAY TAT Fi nal SARS-CoV-2, TONIE 2 DAY TAT 18:07: 00 Performed Final [facility] [id number] [place] [address]Qduqibf Ricchiuti, PhD Advance Directives Directive Yes / No Effective Date File Name No Information Encounters Encounter Description Practice Location Reason(s) For Visit Diagnoses Date Provider [facility], [address] [place], [address], tel:[phone] [facility] Encounter for screening for other viral diseases 2020 David Harvey. [address] [place] [address], [id number], . tel:[phone] Family History Family Member Type Diagnosis Age At Onset No Information Payers Payer name Insurance type Covered constitution party ID Authoriza tion(s) No Information 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 Type Description Quantity Date Captured Comments Alcohol Use Details Unknown Caffeine Use Details Unknown Tobacco Use Status No Information Smoking Status No Information Sex Male Chief Complaint And Reason For Visit No Information Plan Of Treatment Date Type Action Status Goal Depression screening. Due on due Goal Cologuard. Due on due Goal Influenza vaccine. Due on due Goal Colonoscopy. Due on 021 due Goal FOBT. Due on due Goal Preventive Visit. Due on Aug due Goal Sigmoidoscopy. Due on due History Of Present Illness Encounter Date Complaint History Of Prese nt Illness No Information Instructions Date Instruction Additional Infor mation No Information Assessments Type Assessment Date assessment Encounter for screening for othe r viral diseases
--- OUTSIDE RECORDS SUMMARY | 2025-03-05 09:43 | XMS_ITS | Continuity of Care Document ---
Author Organization [facility] Address [address] [place] [address] Phone Care Team Providers Care Packaging Line Attendant Name Role Phone No Pcp, Provider Not In [facility] Primary Care Provid er Unavailable Encounters Date Type Department Care Team Description 05/06/2024 External Contact [facility] [place] [address] [place] [address] Heath Beasley MD Polysubstance abuse (HCC) [F19.10] (Primary Dx); Mixed hyperlipidemia [E78.2]; Homelessness [Z59.00]; Anemia, unspecified type [D64.9] 05/04/2024 External Contact [facility] [place] [address] [place] [address] Areli Palacios APRN Marijuana dependence (HCC) (Primary Dx); Tobacco abuse; Auditory hallucinations; Suicidal ideation; Chronic left-sided low back pain without sciatica; Renal cyst; Elevated blood pressure reading in office without diagnosis of hypertension; Medical clearance for psychiatric admission 05/03/2024 Travel 05/03/2024 9:00 PM EST - 05/03/2024 11:50 PM EST Emergency [facility] [address] [place] [address] Dontrell Payne MD Suicidal ideation (Primary Dx); Left flank pain Discharge Disposition: Psychiatric Hospital 05/02/2024 Travel 05/02/2024 8:27 PM EST - 05/02/2024 10:58 PM EST Emergency [facility] [address] [place] [address] Arthur Calderón MD Left flank pain (Primary Dx); Homeless Discharge Disposition: Home or Self Care 04/28/2024 External Contact [facility] [place] 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 [place] [address] Leydi Puga RN ED Follow-Up Call 03/03/2020 Travel 03/03/2020 5:18 PM EDT - 03/03/2020 6:54 PM EDT [facility] [address] [place] [address]. [place] [address] Matilde Tinoco MD Chest wall pain (Primary Dx); Spasm of muscle Discharge Disposition: Home or Self Care 02/13/2020 Orders Only [facility] [address] [facility] [place] [place] [address] Sarah Beth Corral MD Screening for colon cancer; Screening for cancer of the rectum 08/27/2019 Travel 06/04/2019 9:00 AM EST Office Visit [facility] [address] [address] Sarah Beth Corral MD Mood disorder (Primary Dx); Psychophysiological insomnia; Panic attacks 06/01/2019 1:39 PM EST - 06/01/2019 3:24 PM EST [facility] [address] [place] [address] Sharath Guevara MD Acute anxiety (Primary Dx) Discharge Disposition: Home or Self Care 09/22/2018 10:26 AM EDT - 09/22/2018 6:32 PM EDT [facility] [place] [address] James Palafox MD Suicidal ideation (Primary Dx) Discharge Disposition: Discharged/Transferre d to a [facility] or [facility] 09/09/2018 6:22 PM EDT - 09/10/2018 7:22 AM EDT [facility] [place] [address] Aj Arita MD Suicidal ideations (Primary Dx) Discharge Disposition: Psychiatric Hospital 08/07/2018 5:10 AM EST - 08/07/2018 2:37 PM EST [facility] [place] [address] Sharath Wheeler MD Vivian, Rodney Elgar, MD Homelessness (Primary Dx); Marijuana use; Depression [...] Mother 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 Smoking Status as of 03/05/2025 Tobacco Use Types Packs/Day Years Used Date [...] - 12.5 fL 05/03/2024 9:38 PM EST [facility] Neut Percent 63.5 % 05/03/2024 9:38 PM EST [facility] Comment:Neutrophils equals s egs plus bands Imm Gran% 0.2 % 05/03/2024 9:38 PM EST [facility] Comment:Automated count of m etamyelocytes, myelocytes and promyelocytes. Lymph Percent 24.8 % 05/03/2024 9:38 PM EST [facility] Ransom Percent 8.9 % 05/03/2024 9:38 PM EST [facility] Eos Percent 1.8 % 05/03/2024 9:38 PM EST [facility] Baso Percent 0.8 % 05/03/2024 9:38 PM EST [facility] Neut # 5.3 1.6 - 6.1 x10(3)/mcL 05/03/2024 9:38 PM EST [facility] Comment:Neutrophils equals s egs plus bands IMMGRAN# 0.0 0.0 - 0.1 x10(3)/mcL 05/03/2024 9:38 PM EST [facility] Comment:Automated count of m etamyelocytes, myelocytes and promyelocytes. An absolute IG <0.1 is reported as 0.0. Lymph # 2.1 1.2 - 3.9 x10(3)/mcL 05/03/2024 9:38 PM EST [facility] Ransom # 0.8 0.3 - 0.9 x10(3)/mcL 05/03/2024 9:38 PM EST [facility] Eos# 0.2 0.0 - 0.5 x10(3)/mcL 05/03/2024 9:38 PM EST [facility] Baso # 0.1 0.0 - 0.1 x10(3)/mcL 05/03/2024 9:38 PM EST [facility] Blood VENOUS BLOOD / Unknown Venipuncture / Unknown 05/03/2024 9:27 PM EST 05/03/2024 9:35 PM EST us Oni Dayana Banzhen PA-C HEMATOLOGY ORDERABLES Fi nal Result Performing Organization Address [facility] de Phone Number [facility] [address] [phone] * ALCOHOL MEDICAL (05/03/2024 9:27 PM EST) Only the most recent of5 resultswithin the time period is included. Alcohol Medical <10 <=10 mg/dL 9:57 PM EST [facility] Comment: 50-100 mg/dL - Flushing, slowing of reflexes, impaired visual acuity > 100 mg/dL - Depression of INS[employer]ATION [employer] FLOORING ASSEMBLER > 400 mg/dL - Fatalities reported Blood VENOUS BLOOD / Unknown Venipuncture / Unknown 05/03/2024 9:27 PM EST 05/03/2024 9:35 PM EST Oni [employer]ismaStar-C CHEMISTRY ORDERABLES Fin al Result Performing Organization Address [facility] Phone Number [facility] [address] [phone] * (ABNORMAL) ACETAMINOPHEN LEVEL (05/03/2024 9:27 PM EST) Only the most recent of5 resultswithin the time period is included. Acetaminophen Lvl <5.0(L) 10.0 - 30.0 mcg/mL 05/03/2024 9:57 PM EST [facility] Blood VENOUS BLOOD / Unknown Venipuncture / Unknown 05/03/2024 9:27 PM EST 05/03/2024 9:35 PM EST Narrative [facility] - 05/03/2024 9:57 PM EST Supratherapeutic: > 35 mcg/ml Toxic: > 200 mcg/ml (4h post ingestion) > 100 mcg/ml (8h post ingestion) > 50 mcg/ml (12h post ingestion) Berry Kitchen-C CHEMISTRY ORDERABLES Fin al Result Performing Organization Address [facility]/State/ZIP Co de Phone Number [facility] [address] [phone] * SALICYLATE LEVEL (05/03/2024 9:27 PM EST) Only the most recent of5 resultswithin the time period is included. Salicylate <0.5 <=30.0 mg/dL 05/03/2024 9:57 PM EST [facility] Comment: Therapeutic range for anti-pyretic/analgesic conditions 3-10 mg/dL Therapeutic range for anti-inflammatory/rheumatic fever conditions 15-30 mg/dL Toxic range >30 mg/dL Blood VENOUS BLOOD / Unknown Venipuncture / Unknown 05/03/2024 9:27 PM EST 05/03/2024 9:35 PM EST Eh Taveras PA-C CHEMISTRY ORDERABLES Fin al Result Performing Organization Address City/[facility] de Phone Number [facility] [address] [phone] * (ABNORMAL) COMPREHENSIVE METABOLIC PANEL (05/03/2024 9:27 PM EST) Only the most recent of2 resultswithin the time period is included. Sodium 143 136 - 145 mmol/L 05/03/2024 9:57 PM EST [facility] Potassium 3.7 3.5 - 5.0 mmol/L 05/03/2024 9:57 PM EST [facility] Chloride 104 98 - 107 mmol/L 05/03/2024 9:57 PM EST [facility] Total CO2 28 22 - 29 mmol/L 05/03/2024 9:57 PM EST [facility] Anion Gap 11 7 - 16 mmol/L 05/03/2024 9:57 PM EST [facility] Calcium 9.5 8.6 - 10.4 mg/dL 05/03/2024 9:57 PM EST [facility] Glucose Lvl 90 70 - 99 mg/dL 05/03/2024 9:57 PM EST [facility] BUN 16 6 - 20 mg/dL 05/03/2024 9:57 PM EST [facility] Creatinine 1.18 0.67 - 1.30 mg/dL 05/03/2024 9:57 PM EST [facility] Albumin 4.3 3.5 - 5.2 gm/dL 05/03/2024 9:57 PM EST [facility] Total Protein 6.8 6.4 - 8.3 gm/dL 05/03/2024 9:57 PM EST [facility] Bili Total 0.5 0.2 - 1.4 mg/dL 05/03/2024 9:57 PM EST [facility] ALT 17 <=41 U/L 05/03/2024 9:57 PM EST [facility] AST 51(H) <=40 U/L 05/03/2024 9:57 PM EST [facility] Alk Phos 65 40 - 129 U/L 05/03/2024 9:57 PM EST [facility] eGFR (CKD-EPIcr 2020) 71 >=60 mL/min/1.7 3 m2 05/03/2024 9:57 PM EST [facility] Comment:Estimated GFR was ca lculated using the CKD-EPIcr (2020) equation refit without race. The equation is recommended by the National Kidney Foundation - [place] [employer] Neph[employer] Task Force. Blood VENOUS BLOOD / Unknown Venipuncture / Unknown 05/03/2024 9:27 PM EST 05/03/2024 9:35 PM EST us Eh Taveras PA-C CHEMISTRY ORDERABLES Fin al Result [facility] [address] [phone] * (ABNORMAL) URINALYSIS REFLEX (05/03/2024 9:18 PM EST) UA Color Yellow 05/03/2024 9:23 PM EST [facility] UA Appear Clear Clear 05/03/2024 9:23 PM EST [facility] UA Glucose Negative Negative mg/dL 05/03/2024 9:23 PM EST [facility] UA Ketones Negative Negative mg/dL 05/03/2024 9:23 PM EST [facility] UA Blood Negative Negative 05/03/2024 9:23 PM EST [facility] UA pH 6.0 5.0 - 8.0 pH 05/03/2024 9:23 PM EST [facility] UA Protein Negative Negative mg/dL 05/03/2024 9:23 PM EST [facility] UA Urobilinogen 2.0(A) <=1 mg/dL 9:23 PM EST [facility] UA Bili Negative Negative 05/03/2024 9:23 PM EST [facility] UA Nitrite Negative Negative 05/03/2024 9:23 PM EST [facility] UA Leuk Est Negative Negative 05/03/2024 9:23 PM EST [facility] UA Spec Grav 1.025 1.001 - 1.035 no units 05/03/2024 9:23 PM EST [facility] Comment:Reference range demarcus d for random specimens only. Urine URINE SPECIMEN COLLECTION, CLEAN CATCH / Unknown 05/03/2024 9:18 PM EST 05/03/2024 9:21 PM EST us Onijunior Yinire PA-C URINE ORDERABLES Final R esult Performing Organization Address City/[facility] Co de Phone Number [facility] [address] [phone] * EXTRA MARTIN URINE CX (05/03/2024 9:18 PM EST) Only the most recent of3 resultswithin the time period is included. Urine URINE SPECIMEN COLLECTION, CLEAN CATCH / Unknown 05/03/2024 9:18 PM EST 05/03/2024 9:21 PM EST Oni Dayana Banire PA-C MICROBIOLOGY - GENERAL O RDERABLES Final Result Performing Organization Address City/[facility] de Phone Number [facility] [address] [place] [address], [facility] [phone] * (ABNORMAL) RAPID DRUGS OF ABUSE W/REFLEX TO CONFIRMATION, UR(COV/DBN/GRT) (05/03/2024 9:14 PM EST) Cannabinoid Rapid Presumptive Pos(A) Absent 05/03/2024 9:35 PM EST [facility] Cocaine Rapid Absent Absent 05/03/2024 9:35 PM EST [facility] Methamphetamine Rapid Absent Absent 05/03/2024 9:35 PM EST [facility] Opiate Rapid Absent Absent 05/03/2024 9:35 PM EST [facility] Amphetamine Rapid Absent Absent 024 9:35 PM EST [facility] Benzodiazepines Rapid Absent Absent 05/03/2024 9:35 PM EST [facility] Tricyclic Rapid Presumptive Pos(A) Absent 05/03/2024 9:35 PM EST [facility] Methadone Rapid Absent Absent 4 9:35 PM EST [facility] Barbiturate Rapid Absent Absent 9:35 PM EST [facility] Oxycodone Rapid Absent Absent 4 9:35 PM EST [facility] BUPRENORPHINE RAPID Absent Absent 05/03/2024 9:35 PM EST [facility] Urine URINE SPECIMEN COLLECTION / Unknown 05/03/2024 9:14 PM EST 05/03/2024 9:21 PM EST [facility] - 05/03/2024 9:35 [...] added on within 4 days of collection Oni Anne Banire PA-C URINE ORDERABLES Final R esult [facility] [address] [phone] * (ABNORMAL) DRUG CONFIRMATION, CANNABINOIDS - URINE (05/03/2024 9:14 PM EST) THC <10 Cutoff 10 ng/mL ng/mL 05/05/2024 7:54 AM EST PREFERRED [facility] THC Glucuronide >200(H) Cutoff 10 ng/mL ng/mL 05/05/2024 7:54 AM EST [facility] Urine URINE SPECIMEN COLLECTION / Unknown 05/03/2024 9:14 PM EST 05/03/2024 9:21 PM EST Oni Anne Banire PA-C URINE ORDERABLES Final R esult [facility] [address] [facility] , [place] [address] * FENTANYL SCREEN, URINE (05/03/2024 9:14 PM EST) Fentanyl Absent Cutoff 5 ng/mL 05/04/2024 12:54 AM EST [facility] Urine Creatinine 189.0 mg/dL 05/04/20 24 12:54 AM EST [facility] Comment: Greater than 20: Consistent with valid sample Greater than 2 but less than 20: Possible dilution Less than 2: Questionable valid sample Urine URINE SPECIMEN COLLECTION / Unknown 05/03/2024 9:14 PM EST 05/03/2024 9:21 PM EST Narrative [facility] - 05/04/2024 12:54 AM EST These drug [...] confirmation testing is desired, call the Lab [facility]. Due to possible factors, such as, dilute/adulterated urine, concentration of drug/metabolite being below the cut-off, or antibody specificity of test reagent, a negative result does not rule out drug use. These results are only valid for urine specimens. Any contamination with vaginal pool/amniotic fluid could cause erroneous results. us Eh Taveras PA-C URINE ORDERABLES Final R esult [facility] [address] [place] [address] , [place] [address] * CT ABDOMEN PELVIS WO ORAL OR [...] Lungs are mildly hyperinflated. No consolidation. - us Matilde Tinoco MD IMG DIAGNOSTIC IMAGING ORDERABLE S Final Result * TROPONIN-T HIGH SENSITIVITY BASELINE W/ REFLEX (03/03/2020 5:30 PM EDT) [id number] 9 <22 ng/L 03/03/2020 5:53 PM EDT [facility] Comment:See the website ShopText for rule out [place] care pathway, conditions other than AMI that can cause elevated hs cTnT, and comparison of values from the 4th and 5th generation Paul tests. https://askmayoexpert.[email or web address]/topic/clinical-answers/[email or web address]/[email or web address] 40213 Blood VENOUS BLOOD / Unknown Venipuncture / Unknown 03/03/2020 5:30 PM EDT 03/03/2020 5:33 PM EDT Narrative [facility] - 03/03/2020 5:53 PM EDT Ingestion of sommer doses of biotin (>5 mg/day) taken within 8 hours of drawing blood sample can interfere with this immunoassay test. us Matilde Tinoco MD CHEMISTRY ORDERABLES Final Resul t [facility] [address] [place] [address] * EXTRA LIGHT BLUE (03/03/2020 5:30 PM EDT) Only the most recent of2 resultswithin the time period is included. Blood VENOUS BLOOD / Unknown Venipuncture / Unknown 03/03/2020 5:30 PM EDT 03/03/2020 5:34 PM EDT us Matilde Tinoco MD HEMATOLOGY ORDERABLES Final Resu lt [facility] [address] [place] [address] * CBC (03/03/2020 5:30 PM EDT) [facility] WBC 7.0 4.0 - 11.0 x10(3)/mcL 03/03/2020 5:37 PM EDT [facility] RBC 4.55 4.30 - 5.81 x10(6)/mcL 03/03/2020 5:37 PM EDT [facility] Hgb 14.0 13.5 - 17.1 g/dL 03/03/2020 5:37 PM EDT [facility] Hct 41.2 38.9 - 51.6 % 03/03/2020 5:37 PM EDT [facility] MCV 90.5 82.5 - 99.8 fL 03/03/2020 5:37 PM EDT [facility] MCH 30.8 27.0 - 34.3 pg 03/03/2020 5:37 PM EDT [facility] MCHC 34.0 32.1 - 35.3 g/dL 03/03/2020 5:37 PM EDT [facility] RDW 13.2 11.5 - 15.0 % 03/03/2020 5:37 PM EDT [facility] Platelet 198 144 - 423 x10(3)/mcL 03/03/2020 5:37 PM EDT [facility] MPV 7.6 6.8 - 10.8 fL 03/03/2020 5:37 PM EDT [facility] Blood VENOUS BLOOD / Unknown Venipuncture / Unknown 03/03/2020 5:30 PM EDT 03/03/2020 5:33 PM EDT us Matilde Tinoco MD HEMATOLOGY ORDERABLES Final Resu lt [facility] [address] [place] [address] * (ABNORMAL) BASIC METABOLIC PANEL (03/03/2020 5:30 PM EDT) Only the most recent of4 resultswithin the time period is included. Sodium 136 136 - 145 mmol/L 03/03/2020 5:53 PM EDT [facility] Potassium 4.0 3.5 - 5.0 mmol/L 03/03/2020 5:53 PM EDT [facility] Chloride 103 98 - 107 mmol/L 03/03/2020 5:53 PM EDT [facility] Total CO2 23 22 - 29 mmol/L 03/03/2020 5:53 PM EDT [facility] Anion Gap 10 7 - 16 mmol/L 03/03/2020 5:53 PM EDT [facility] Calcium 9.2 8.6 - 10.4 mg/dL 03/03/2020 5:53 PM EDT [facility] Glucose Lvl 129(H) 74 - 100 mg/dL 03/03/2020 5:53 PM EDT [facility] BUN 18 6 - 20 mg/dL 03/03/2020 5:53 PM EDT [facility] Creatinine 1.31(H) 0.67 - 1.30 mg/dL 03/03/2020 5:53 PM EDT [facility] GFR Afr Am 70 >=60 mL/min/1.7 3 m2 03/03/2020 5:53 PM EDT [facility] GFR Non Afr Am 61 >=60 mL/min/1.7 3 m2 03/03/2020 5:53 PM EDT [facility] Comment: This estimated GFR [...] Tinoco MD CHEMISTRY ORDERABLES Final Resul t [facility] [address] [id number] * EK EKG 12 LEAD (03/03/2020 5:04 PM EDT) Only the most recent of2 resultswithin the time period is included. Anatomical Region Laterality Modality Electrocardiogra phy 03/03/2020 5:18 PM EDT Impressions 03/04/2020 5:[address] [facility] [place] Test Date: 2020-03-03 Pat Name: [facility] Department: DEPID Room: Gender: Male Soda Tester: : 1965 Requested By: [facility] Order Number: [id number] Reading MD: Александр Thomas MD Measurements Intervals [place] Rate: 79 P: 67 SC: 150 QRS: 24 QRSD: 93 T: 32 QT: 370 QTc: 424 Interpretive Statements SINUS RHYTHM Electronically Signed On 03-04-2020 17:24:12 EDT by Александр Thomas MD Narrative Procedure Note Jaswinder Thomas MD - 03/04/[address] [facility] Test Date: 2020-03-03 Pat Name: [facility] Department: DEPID Room: Gender: Male Soda Tester: : 1965 Requested By: [facility] Order Number: [id number] Reading MD: Александр Thomas MD Measurements Intervals [place] Rate: 79 P: 67 SC: 150 QRS: 24 QRSD: 93 T: 32 QT: 370 QTc: 424 Interpretive Statements SINUS RHYTHM Electronically Signed On 03-04-2020 17:24:12 EDT by Александр Thomas MD us Matilde Tinoco MD IMG ECG ORDERABLES Final Result * EXTRA YELLOW URINE (09/22/2018 12:22 PM EDT) Urine Collection / Unknown 09/22/2018 12:22 PM EDT 09/22/2018 12:31 PM EDT us James Palafox MD URINE ORDERABLES Final Re sult [facility] [address] [address] * (ABNORMAL) DRUGS OF ABUSE, SCREEN ONLY, URINE (09/22/2018 12:22 PM EDT) Only the most recent of4 resultswithin the time period is included. 6 AM (Heroin) Absent Cutoff 10 ng/mL 09/22/2018 12:53 PM EDT [facility] Amphetamines Absent Cutoff 500 ng/mL 09/22/2018 12:53 PM EDT [facility] Barbiturates Absent Cutoff 200 ng/mL 09/22/2018 12:53 PM EDT [facility] Benzodiazepines Absent Cutoff 200 ng/mL 09/22/2018 12:53 PM EDT [facility] Buprenorphine Absent Cutoff 5 ng/mL 09/22/2018 12:53 PM EDT [facility] Cannabinoid Metabolite Presumptive Pos(A) Cutoff 50 ng/mL 09/22/2018 12:53 PM EDT [facility] Cocaine Metabolite Absent Cutoff 150 ng/mL 09/22/2018 12:53 PM EDT [facility] Methadone and Metabolite Absent Cutoff 300 ng/mL 09/22/2018 12:53 PM EDT [facility] Opiate Absent Cutoff 300 ng/mL 09/22/2018 12:53 PM EDT [facility] Oxycodone Lvl Absent Cutoff 100 ng/mL 09/22/2018 12:53 PM EDT [facility] Phencyclidine Absent Cutoff 25 ng/mL 09/22/2018 12:53 PM EDT [facility] Creatinine Ur >25.0 mg/dL 09/22/2018 12:53 PM EDT [facility] Comment: Greater than 20: Consistent with valid sample Greater than 2 but less than 20: Possible dilution Less than 2: Questionable valid sample Urine STRUCTURE OF URINARY TRACT PROPER / Unknown Collection / Unknown 09/22/2018 12:22 PM EDT 09/22/2018 12:30 PM EDT Narrative [facility] - 09/22/2018 12:53 PM [...] Palafox MD URINE ORDERABLES Final Re sult [facility] [address] [place], [place] [id number] * URINALYSIS (09/22/2018 12:22 PM EDT) Only the most recent of2 resultswithin the time period is included. UA Color Yellow 09/22/2018 12:46 PM EDT [facility] UA Appear Clear Clear 09/22/2018 12:46 PM EDT [facility] UA Glucose Negative Negative mg/dL 09/22/2018 12:46 PM EDT [facility] UA Ketones Negative Negative mg/dL 09/22/2018 12:46 PM EDT [facility] UA Blood Negative Negative 09/22/2018 12:46 PM EDT [facility] UA pH 5.5 5.0 - 8.0 pH 09/22/2018 12:46 PM EDT [facility] UA Protein Negative Negative mg/dL 09/22/2018 12:46 PM EDT [facility] UA Urobilinogen 0.2 <=1 mg/dL 9 12:46 PM EDT [facility] UA Bili Negative Negative 09/22/2018 12:46 PM EDT [facility] UA Nitrite Negative Negative 09/22/2018 12:46 PM EDT [facility] UA Leuk Est Negative Negative 09/22/2018 12:46 PM EDT [facility] UA Spec Grav >=1.030 1.001 - 1.035 no units 09/22/2018 12:46 PM EDT [facility] Comment: Reference range valid for random specimens only. Urine URINE SPECIMEN COLLECTION, CLEAN CATCH / Unknown Collection / Unknown 09/22/2018 12:22 PM EDT 09/22/2018 12:30 PM EDT James Palafox MD URINE ORDERABLES Final Re sult Performing Organization Address City/[facility]/ZIP Co de Phone Number [facility] [address] [place] [address] * EXTRA GOLD SST (09/22/2018 10:58 AM EDT) Blood VENOUS BLOOD / Unknown Venipuncture / Unknown 09/22/2018 10:58 AM EDT 09/22/2018 11:12 AM EDT James Palafox MD CHEMISTRY ORDERABLES Francie l Result Performing Organization Address [facility] Co de Phone Number [facility] [address] [place] [address] * TSH REFLEX (09/22/2018 10:58 AM EDT) TSH Reflex 3.040 0.270 - 4.200 mcIU/mL 09/22/2018 4:54 PM EDT [facility] Blood VENOUS BLOOD / Unknown Venipuncture / Unknown 09/22/2018 10:58 AM EDT 09/22/2018 11:09 AM EDT Narrative PREFERRED [facility]ighbor[facility] - 09/22/2018 4:54 PM EDT Ingestion of sommer doses of biotin (>5 mg/day) taken within 8 hours of drawing blood sample can interfere with this immunoassay test. us James Palafox MD CHEMISTRY ORDERABLES Francie l Result Performing Organization Address City/[facility]/ZIP Co de Phone Number [facility] [address] [facility] , [place] [place] [address] * EXTRA BETINA TUCKER (09/09/2018 7:01 PM EDT) Blood VENOUS BLOOD / Unknown Venipuncture / Unknown 09/09/2018 7:01 PM EDT 09/09/2018 7:22 PM EDT us Aj Arita MD CHEMISTRY ORDERABLES Final Resul t Performing Organization Address City/[facility] Co de Phone Number [facility] [address] [place] [address] * HIV AG/AB (08/24/2017 5:52 PM EST) Pathologist [facility] HIV Ag/AB Non-Reacti ve Non-Reactive, See Footnote 08/25/2017 12:33 PM EST [facility] Blood VENOUS BLOOD / Unknown Venipuncture / Unknown 08/24/2017 5:52 PM EST 08/24/2017 5:52 PM EST us Rosendo Hampton MD IMMUNOLOGY ORDERABLES Final Resu lt Performing Organization Address [facility] Co de Phone Number [facility] [address] [place] [address] * HEPATITIS C ANTIBODY IGM + IGG (08/24/2017 5:52 PM EST) Pathologist [facility] Hep C Ab Negative Negative 08/25/2017 12:32 PM EST [facility] Blood VENOUS BLOOD / Unknown Venipuncture / Unknown 08/24/2017 5:52 PM EST 08/24/2017 5:52 PM EST us Rosendo Hampton MD IMMUNOLOGY ORDERABLES Final Resu lt Performing Organization Address [facility] Co de Phone Number [facility] [address] [place] [address] * HEPATITIS B SURFACE ANTIBODY (08/24/2017 5:52 PM EST) Pathologist [facility] Hep Bs Ab <3.08 mcIU/mL 08/25/2017 12:33 PM EST [facility] Comment: < 8.00 mIU/mL - [...] Hampton MD IMMUNOLOGY ORDERABLES Final Resu lt [facility] [address] [place] [address] * CT ANGIO FOR PULMONARY EMBOLUS (09/19/2015 2:34 PM EDT) Anatomical Region Laterality Modality Other 09/19/2015 2:34 PM EDT Impressions 09/20/2015 12:37 PM EDT 1. NO PULMONARY EMBOLI DETECTED. 2. BIBASILAR ATELECTASIS OR FIBROTIC CHANGE. Reported and released by Narrative 09/20/2015 12:37 PM EDT [facility] - ASO Age: 51 Acct: [id number] EXAMS: [id number] - CTA THORAX PULMONARY EMBOLUS HISTORY/INDICATIONS: SHORT [...] Procedure Note Diogenes Atkinson [facility] Age[facility] 51 Acct: [id number] EXAMS: [id number] - CTA THORAX PULMONARY EMBOLUS HISTORY/INDICATIONS: SHORT [...] OR FIBROTIC CHANGE. Reported and released by us Rex GRAHAM DBN [facility] RAD HISTORICAL Final Result * XR CHEST-FRONTAL [...] released by Narrative 09/20/2015 9:59 AM EDT [facility] Age: 51 Acct: [id number] EXAMS: [id number] - CHEST-FRONTAL HISTORY/INDICATIONS: COUGH, SHORT OF BREATH, [...] Procedure Note Diogenes Atkinson MD - 03/26/2021 [facility] Age: 51 Acct: [id number] EXAMS: [id number] - CHEST-FRONTAL HISTORY/INDICATIONS: COUGH, SHORT OF BREATH, [...] Reported and released by Rex Murry NP IMCaroline DBN [facility] RAD HISTORICAL Final Result Visit Diagnoses Diagnosis [...] No Sarah Beth Corral MD Care Teams Packaging Line Attendant Relationship Specialty Start Date End Date No Pcp, Provider Not In Epic PCP - General 05/02/24
--- OUTSIDE RECORDS SUMMARY | 2025-03-05 09:43 | XMS_ITS | Clinical Summary ---
Author Organization [facility] Address [address] [place] [address] Care Team Providers Care Business Office Representative Name Role Phone System, Provider Not In [...] [facility]-HIV Screening 1964 [facility]-Hepatitis C Screening 1964 [facility]-/Child/Adol SDOH Screenings 1964 [facility]- SDOH Screenings 1982 [facility]-Adult SDOH Screenings 1982 [facility]-DTaP,Tdap,and Td Vaccine s (1 - Tdap) 10/27/1983 [facility]-Pneumococcal Vaccine: 50 + Years (1 of 2 - PCV) 10/27/1983 [facility]-Zoster Vaccines (1 of 2) 10/27/1983 CT Colonography 2009 Colonoscopy 2009 FIT-DNA 2009 FIT 2009 FOBT 2009 Sigmoidoscopy 2009 [facility]-Colorectal Cancer Screening 2009 [id number] Vaccine (3 - Moderna risk series) 09/29/2021 [...] this topic Insurance [employer] Care Teams 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
--- OUTSIDE RECORDS SUMMARY | 2025-03-05 09:43 | XMS_ITS | Encounter Summary ---
Author Organization [facility] Address [address] [place] [address] Care Team Providers Care Promotional Model Name Role Phone System, Provider Not In MD Primary Care Provider Unavailable Reason for Referral * Consultation (Routine) - Closed Specialty Diagnoses / Procedures Referred By Gonzalo galicia Referred To Contact Hand Surgery Diagnoses Other secondary osteoarthritis of right wrist Charles Quinonez DO [address] [facility] [address] [place] [address] Phone: tel: fax: Nicanor Valenzuela MD [address] [place] [phone] Phone: tel: fax: Referral ID Status Reason Start Date Expiration Date V isits Requested Visits Authorized [id number] Closed Specialty Services Required 06/03/2024 12/03/2025 1 1 Encounter Details Date Type Department Care Team (Latest Contact Info) Description 06/03/2024 [facility] [address] [place] [address] Charles Quinonez DO [address] [facility] [address] [place] [address] Other secondary osteoarthritis of right wrist (Primary [...] Primary documented in this encounter Care Teams Promotional Model Relationship Specialty Start Date End Date System, Provider Not In, [place] [address] PCP - General Family Medicine 06/06/24 documented as of this encounter
[2025-03-05 09:59] LABS: Hematocrit 44.8 % (42.0-52.0); Hemoglobin 15.2 g/dL (14.1-18.0); Immature Granulocytes % 0.1 %; Mean Corpuscular HGB Conc 33.9 g/dL (31.8-35.4); Mean Corpuscular Hemoglobin 29.8 pg (27.0-31.2); Mean Corpuscular Volume 87.8 fl (80-94); Nucleated Red Blood Cells % 0 %; Platelet Count 186 K/mm3 (142-424); Red Blood Count 5.10 M/mm3 (4.60-6.20); Red Cell Distribution Width-SD 41.0 fL; White Blood Count 7.2 K/mm3 (4.8-10.8)
[2025-03-05 10:33] LABS: Alanine Aminotransferase 23 U/L (12-78); Albumin Level 4.6 g/dl (3.5-5.0); Alkaline Phosphatase 55 U/L (38-126); Anion Gap 9.4 mEq/L (5-15); Aspartate Amino Transferase 29 U/L (17-59); Bilirubin,Direct 0.2 mg/dl (0.0-0.4); Bilirubin,Indirect 0.9 mg/dL (0.0-0.9); Bilirubin,Total 1.1 mg/dl (0.2-1.3); Bilirubin,Unconjugated 0.9 mg/dL (0.0-1.1); Blood Urea Nitrogen 15 mg/dl (9-20); Calcium 9.6 mg/dl (8.4-10.2); Carbon Dioxide 31 mmol/L (22.0-30.0); Chloride 104 mmol/L (98-107); Cholesterol 222 mg/dl (140-200); Creatinine,Serum 1.10 mg/dl (0.66-1.25); Estimated Glomerular Filt Rate 68 ml/min (>60); GFR (African American) 83 ML/MIN (>60); Glucose 91 mg/dl (74-100); HDL Cholesterol 37 mg/dl (40-60); Magnesium 2.2 mg/dl (1.6-2.3); Potassium 4.4 mmoL/L (3.5-5.1); Sodium 140 mmol/L (136-145); Total Protein,Serum 7.1 g/dl (6.3-8.2); Triglycerides 240 mg/dl (30-150)
[2025-03-05 10:48] LABS: Free T4 (Free Thyroxine) 1.34 ng/dl (0.78-2.19)
[2025-03-05 11:03] LABS: Thyroid Stimulating Hormone 1.33 uIU/mL (0.465-4.68)
== END 2025-03-05 23:59 | disposition home or self-care (01) ==
LOC: LAB 09:28
PROVIDERS: PCP Family Medicine; Visit Provider Physician Assistant
DX: R07.9 Chest pain, unspecified (principal); R93.1 Abnormal findings on diagnostic imaging of heart and coronary circulation; R06.02 Shortness of breath; R94.31 Abnormal electrocardiogram [ECG] [EKG]; R42 Dizziness and giddiness; R55 Syncope and collapse
CPT/HCPCS: 36415; 80048; 80061; 80076; 83735; 84439; 84443; 85025